=== PATIENT | male | born 1955 | race Caucasian/White ===

== ENCOUNTER 2020-01-06 12:53 | Outpatient (CLI) | payer MEDICARE, OTHER | END 2020-01-06 12:54 | disposition home or self-care (01) | LOC: DTY/OP 12:53 | PROVIDERS: ATTEND Family Medicine | DX: E66.01 Morbid (severe) obesity due to excess calories (principal); E78.2 Mixed hyperlipidemia; I12.9 Hypertensive chronic kidney disease with stage 1 through stage 4 chronic kidney disease, or unspecified chronic kidney disease; E11.22 Type 2 diabetes mellitus with diabetic chronic kidney disease; N18.9 Chronic kidney disease, unspecified; D63.1 Anemia in chronic kidney disease; R53.83 Other fatigue | CPT/HCPCS: 97802 ==

== ENCOUNTER 2020-03-22 13:39 | Outpatient (CLI) | payer MEDICARE, OTHER ==
--- NOTE | 2020-03-22 15:25 | CT ---
LUMBAR SPINE CT WITHOUT CONTRAST: HISTORY: Lumbar spondylolisthesis. Injured back in 1980. Left leg numbness. Right leg sciatica. COMPARISON: None. CORRELATION: Lumbar spine radiograph series 04/22/2020 and lumbar spine MRI 01/12/2020. FINDINGS: Five lumbar-type vertebrae. Lumbar spine vertebral body heights are maintained. No fracture. Bilatera l pars defects at L3 and L5. Spondylolisthesis: 4.3 mm of anterolisthesis of L3 upon L4. 7.5 mm of anterolisthesis of L5 upon S1. Vacuum disc phenomenon at L3-L4 and L5-S1. Endplate sclerosis at L5-S1 is noted. Appropriate attenuation the paraspinal muscles. Minimal nonspecific presacral fat stranding. Visualized sacrum and bony pelvis are intact. Limited evaluation of the contents of the central spinal canal and neural foramina due to technique. T11-T12: No significant central canal stenosis or significant neural foraminal narrowing. T12-L1: No significant central canal stenosis or significant neural foraminal narrowing. L1-L2: No significant central canal stenosis or significant neural foraminal narrowing. L2-L3: No significant central canal stenosis or significant neural foraminal narrowing. L3-L4: Vacuum disc phenomenon with moderate loss of disc space height. Broad-based disc bulge minimal ly contacts the ventral thecal sac. There is air attenuation in the right subarticular zone, superior to the L3-L4 disc space likely due to superior disc migration. There is presumed mass effect and obscuration of the traversing right L3 nerve root. Left subarticular zone is unremarkable. Moderate right and moderate to severe left neural foraminal narrowing. L4-L5: Broad-based disc bulge abuts the thecal sac. There is narrowing of the right subarticular zone with partial obscuration of the traversing right L5 nerve root of the disc space. Inferior to the disc space, there is complete obscuration the traversing right L5 nerve root secondary to inferior di sc extrusion. Moderate right and mild left neural foraminal narrowing. L5-S1: Broad-based disc bulge. Epidural lipomatosis. Moderate to severe central canal stenosis and mo derate to severe bilateral neural foraminal narrowing. IMPRESSION: 1. Spondylolisthesis of spondylolisthesis as described above. 2. Vacuum disc phenomenon at L3-L4 with superior disc migration. There is mass effect and presumed ob scuration of the traversing right L3 nerve root. 3. Broad-based disc bulge with inferior disc migration into the right subarticular zone at L4-L5. Mas s effect and obscuration of the traversing right L5 nerve root. The degree of mass effect upon the traversing right L5 nerve root has developed since the previous examination. 4. Significant bilateral neural foraminal narrowing at L5-S1. Additional levels of neural foraminal s tenosis as detailed above. Transcribed Date/Time: 03/22/2020 3:39 PM
== END 2020-03-22 13:40 | disposition home or self-care (01) ==
LOC: BICCT 13:39
PROVIDERS: ATTEND Neurological Surgery
DX: M43.16 Spondylolisthesis, lumbar region (principal); M51.86 Other intervertebral disc disorders, lumbar region; M48.07 Spinal stenosis, lumbosacral region; M48.061 Spinal stenosis, lumbar region without neurogenic claudication
CPT/HCPCS: 72131

== ENCOUNTER 2020-04-08 07:50 | Outpatient (CLI) | payer MEDICARE, OTHER ==
[2020-04-08 15:12] LABS: Mean Corpuscular HGB CONC 31.6 G/DL (32.0-36.0); Mean Corpuscular Hemoglobin 31.3 PG (27.0-33.0); Mean Corpuscular Volume 99.1 fl (80.0-100.0); Mean Platelet Volume 12.1 fl (7.4-10.4); Platelet Count 238 10x3/uL (130-400); RBC Distribution Width 14.6 % (11.5-14.5); Red Blood Cell (RBC) Count 3.19 10x6/uL (4.40-5.80); White Blood Cell (WBC) Count 5.3 10x3/uL (4.5-11.0)
[2020-04-08 15:35] LABS: Anion Gap 14 mmol/L (10-20); BUN (Urea Nitrogen) 22 mg/dL (8.4-25.7); Calc. Creatinine Clearance 0 mL/min (70-130); Calcium 9.2 mg/dL (7.8-10.44); Carbon Dioxide 26 mmol/L (23-31); Chloride 104 mmol/L (98-107); Estimated GFR-MDRD 41; Glucose 98 mg/dL (80-115); Potassium 3.9 mmol/L (3.5-5.1); Sodium 140 mmol/L (136-145)
[2020-04-09 13:39] LABS: SARS-CoV-2 MS2 Positive; SARS-CoV-2 N Gene Negative; SARS-CoV-2 S Gene Negative; SARS-CoV-2 by NAA Not Detected (NotDetected); SARS-CoV-2 orf1ab Negative
== END 2020-04-08 07:51 | disposition home or self-care (01) ==
LOC: LABBT 07:50
PROVIDERS: ATTEND Neurological Surgery
DX: Z01.812 Encounter for preprocedural laboratory examination (principal); Z20.828 Contact with and (suspected) exposure to other viral communicable diseases; M43.16 Spondylolisthesis, lumbar region
CPT/HCPCS: 80048; 85027; U0003; 87635

== ENCOUNTER 2020-04-13 07:47 | Day surgery (SDC) | payer MEDICARE, OTHER ==
[2020-04-12 09:44] VITALS: BMI 46.5
[2020-04-13] MEDS ORDERED: Thrombin 5000 UNITS/5 ML VIAL ONE (09:47)
[2020-04-13] MEDS ORDERED: EPINEPHrine 1 MG/ML AMP ONE (09:47)
[2020-04-13] MEDS ORDERED: Bupivacaine PF 0.5% 30 ML VIAL ONE (09:47)
[2020-04-13] MEDS ORDERED: Fentanyl 100 MCG/2 ML VIAL ONE (10:07)
[2020-04-13] MEDS ORDERED: Midazolam HCl 2 mg/2 ml Vial ONE ×2 (10:07→12:41)
[2020-04-13] MEDS ORDERED: PHENYLEPHRINE-NS 100 MCG/ML 10 ML SYRINGE ONE (10:14)
[2020-04-13] MEDS ORDERED: Rocuronium Bromide 10 MG/ML (10ML VIAL) ONE (10:14)
[2020-04-13] MEDS ORDERED: PROPOFOL 200 MG/20 ML VIAL ONE (10:14)
[2020-04-13] MEDS ORDERED: Ondansetron PF 4 MG/2 ML Vial ONE (10:14)
[2020-04-13] MEDS ORDERED: ePHEDrine 50 MG/ML VIAL ONE (10:14)
[2020-04-13] MEDS ORDERED: Calcium Chloride 1 GM/10 ML Abboject SYRINGE ONE (10:14)
[2020-04-13] MEDS ORDERED: Glycopyrrolate 0.2 MG/ML 5 ML SYRINGE ONE ×2 (10:14→12:21)
[2020-04-13] MEDS ORDERED: Tamsulosin HCl 0.4 MG CAP ONE (15:10)
[2020-04-13] MEDS ORDERED: HYDROcodone/Acetaminophen 7.5/325 mg Tablet ONE (16:10)
--- NOTE | 2020-04-14 14:16 | OP ---
DATE OF PROCEDURE: 04/13/2020 CAR FILLER: Vaughn Joseph PA-C. INDICATION: Pain. DIAGNOSIS: Bilateral L5 spondylolysis with spondylolisthesis. PROCEDURES: Bilateral L5-S1 facetectomies with bilateral L5-S1 posterolateral instrumented fusion, placement of allograft, placement of autograft. ANESTHESIA: General. TECHNIQUE: The patient was brought into the operating room and placed under general anesthesia. He was flipped from the supine to prone position on the operating room table. A linear incision was planned spanning L5-S1. After prepping and draping and after an appropriate preoperative pause, the incision was created. The soft tissues were swept away from midline. A self-retaining retractor was placed in the wound for optimal exposure. After confirming appropriate levels on C-arm fluoroscopy, a high-speed cutting drill bit as well as Adson rongeurs as well as 2, 3, and 4 mm Kerrisons were used to perform bilateral facetectomies at L5-S1. Pedicle screws were then placed at L5-S1 bilaterally with the aid of C-arm fluoroscopy. An intraoperative 3D CT scan was then performed to confirm appropriate placement of hardware. Allograft and autograft material were then placed in the lateral confines of the instrumentation construct. The wound was irrigated. Hemostasis maintained throughout. The wound was then closed in anatomic layers and a pressure dressing was applied. There were no known procedural complications. Job ID: [id number]
== END 2020-04-13 17:55 | disposition home or self-care (01) ==
LOC: SDC 07:47
PROVIDERS: ATTEND Neurological Surgery
PROC: 0SG3071 Fusion of Lumbosacral Joint with Autologous Tissue Substitute, Posterior Approach, Posterior Column, Open Approach (ICD-10-PCS; principal; 2020-04-13)
DX: M47.816 Spondylosis without myelopathy or radiculopathy, lumbar region (principal); M43.16 Spondylolisthesis, lumbar region; I10 Essential (primary) hypertension; E78.5 Hyperlipidemia, unspecified; I25.10 Atherosclerotic heart disease of native coronary artery without angina pectoris; I25.2 Old myocardial infarction; G47.30 Sleep apnea, unspecified; F32.9 Major depressive disorder, single episode, unspecified; E66.9 Obesity, unspecified; Z68.42 Body mass index [BMI] 45.0-49.9, adult; Z79.82 Long term (current) use of aspirin; Z79.84 Long term (current) use of oral hypoglycemic drugs; Z79.899 Other long term (current) drug therapy; Z88.2 Allergy status to sulfonamides; Z91.018 Allergy to other foods
CPT/HCPCS: 20930; 20936; 22612; 22840; 76000; C1713 ×4; C1768; J0171; J0690; J2250; J2405; J2704; J3010; J3490; S0020

== ENCOUNTER 2020-05-28 07:32 | Inpatient (IN) | payer MEDICARE, OTHER ==
[2020-05-28 08:29] LABS: #Basophils 0.1 thou/uL (0.0-0.2); #Eosinphils 0.3 thou/uL (0.0-0.7); #Monocytes 0.5 thou/uL (0.11-0.59); #Neutrophils 5.4 thou/uL (1.40-6.50); %Basophils 1.1 % (0.0-1.0); %Eosinophils 4.2 % (0.0-10.0); %Lymphocytes 13.2 % (21.0-51.0); %Monocytes 6.6 % (0.0-10.0); %Neutrophils 74.9 % (42.0-75.0); Hemoglobin 10.1 g/dL (14.0-18.0); Mean Corpuscular HGB CONC 33.2 g/dL (32.0-36.0); Mean Corpuscular Hemoglobin 32.6 pg (27.0-31.0); Mean Corpuscular Volume 98.3 fL (78.0-98.0); Mean Platelet Volume 10.2 fL (7.4-10.4); Platelet Count 172 thou/uL (130-400); RBC Distribution Width 14.3 % (11.5-14.5); Red Blood Cell (RBC) Count 3.09 mill/uL (4.70-6.10); White Blood Cell (WBC) Count 7.2 thou/uL (4.8-10.8)
[2020-05-28 08:49] LABS: ALT (SGPT) 12 U/L (8-55); AST (SGOT) 19 U/L (5-34); Albumin 3.2 g/dL (3.4-4.8); Alkaline Phosphatase 64 U/L (40-110); Anion Gap 16 mmol/L (10-20); BUN (Urea Nitrogen) 21 mg/dL (8.4-25.7); Bilirubin, Total 0.7 mg/dL (0.2-1.2); CK (CPK) 62 U/L (30-200); Calc. Creatinine Clearance 0 mL/min (70-130); Calcium 8.6 mg/dL (7.8-10.44); Carbon Dioxide 23 mmol/L (23-31); Chloride 106 mmol/L (98-107); Globulin 2.9 g/dL (2.4-3.5); Glucose 154 mg/dL (80-115); Potassium 3.6 mmol/L (3.5-5.1); Protein, Total 6.1 g/dL (5.8-8.1); Sodium 141 mmol/L (136-145)
[2020-05-28] MEDS ORDERED: Furosemide 20 MG TAB PO SCH (09:00)
[2020-05-28] MEDS ORDERED: Furosemide 40 MG/4 ML VIAL ONE (09:29)
[2020-05-28] MEDS ORDERED: cefTRIAXone\\ROCEPHIN 2 GM VIAL ONE (09:29)
--- NOTE | 2020-05-28 09:39 | PDOC.FPRHP ---
- History of Present Illness Chief Complaint: SOB History of Present Illness: Pt is a 64 y/o M who presented to the ED today after having an episode of SOB this AM. He states that he was getting up to go to the bathroom this AM when he an acute onset of SOB. He said that he was gasping for air and due to this called EMS. He denied CP, diaphoresis, lightheaded/dizziness during this episode. He states that this is the first time something like this has happened to him. He denied PND and orthopnea. He has never had HF or exacerbation before. He denied cough, fever/chills, sore throat, congestion, recent sick contacts. Once EMS arrived he was found to have O2 of low 80s and high 70s. He was put on NC and O2 grey to mid 90s. He was also given breathing treatments which have now made him feel better. Of note pt had recent back surgery for spondylolisthesis five weeks ago in April with Dr. Mccarty. He has been taking antibiotics TID for the past 3-4 weeks for a 90 day course due to having an abscess s/p the surgery. ED Course: caterina saha lasix IV 40 CXR - Allergies/Adverse Reactions Allergies Allergy/AdvReac Type Severity Reaction Status Date / Time Sulfa (Sulfonamide Allergy Verified 05/28/20 13:45 Antibiotics) coconuts Allergy Severe Hives Uncoded 05/28/20 13:45 - Home Medications Medication Instructions Recorded Confirmed Type Acetaminophen With Codeine 1 tablet PO Q6HR PRN 04/12/20 05/28/20 History [Tylenol with Codeine #3] Amlodipine [Norvasc] 5 mg PO DAILY 04/12/20 05/28/20 History Aspirin 1 tab PO QAM 04/12/20 05/28/20 History Cetirizine HCl [Zyrtec] 10 mg PO DAILY 04/12/20 05/28/20 History Cholecalciferol (Vitamin D3) 5,000 unit PO QAM 04/12/20 05/28/20 History [Vitamin D3] Clopidogrel Bisulfate [Clopidogrel] 75 mg PO DAILY 04/12/20 05/28/20 History Cyclobenzaprine [Flexeril] 10 mg PO TID 04/12/20 05/28/20 History Escitalopram Oxalate 20 mg PO DAILY 04/12/20 05/28/20 History Fenofibrate,Micronized 135 mg PO DAILY 04/12/20 05/28/20 History [Fenofibrate] Furosemide 20 mg PO DAILY 04/12/20 05/28/20 History Metoprolol Succinate [Toprol XL] 100 mg PO DAILY 04/12/20 05/28/20 History Nitroglycerin 0.4 mg SL PRN PRN 04/12/20 05/28/20 History [place]-3 Acid Ethyl Esters [Lovaza] 1 gm PO BID 04/12/20 05/28/20 History Pantoprazole [Protonix] 40 mg PO DAILY 04/12/20 05/28/20 History Pioglitazone HCl 30 mg PO DAILY 04/12/20 05/28/20 History Ranolazine [Ranexa] 500 mg PO BID 04/12/20 05/28/20 History Rosuvastatin [Crestor] 1 tab PO HS 04/12/20 05/28/20 History tiZANidine HCl [Tizanidine HCl] 2 mg PO TID 04/12/20 05/28/20 History Clindamycin [Cleocin] 450 mg PO Q8HR 05/28/20 05/28/20 History tiZANidine HCl [Tizanidine HCl] 2 mg PO TID PRN 05/28/20 05/28/20 History - History PMHx: -CAD s/p multiple stents in LAD and RCA. s/p recent angioplasty and stent placement in March. Magazine Publisher is Dr. Muñoz. -HTN -T2DM PSHx: -spinal surgery, April, Dr. Mccarty -ex lap for colonic rupture -bunions -stent placements, 1997 and 2001 FHx: -Father: CAD Social: -Former smoker of 30 years 1PPD, quit 10 years ago -Social ETOH -No drugs -Lives with . Retired. - Review of Systems General: denies: fever/chills, night sweats Eyes: denies: eye pain, vision changes ENT: denies: nasal congestion, rhinorrhea Respiratory: reports: shortness of breath. denies: cough, congestion Cardiovascular: denies: chest pain, palpitation Gastrointestinal: denies: nausea, vomiting, diarrhea, constipation, abdominal pain Genitourinary: denies: incontinence, dysuria, polyuria Skin: denies: rashes, jaundice Musculoskeletal: denies: pain, tenderness Neurological: denies: syncope, seizure Psychological: denies: anxiety, depression - Vital signs Pulse: 96, Resp: 22, Temp: 98.4 (Oral), O2 sat: 96 on (2L Oxygen), Time: 05/28/2020 07:38. - Physical Exam Constitutional: NAD, awake, alert and oriented HEENT: normocephalic and atraumatic, PERRLA, EOMI Neck: supple, FROM Heart: RRR, normal S1/S2, no murmurs/rubs/gallops Lungs: CTAB, no respiratory distress -Lungs: expiratory wheezing, bl crackles, no rhonchi Abdomen: soft, non-tender, bowel sounds present Musculoskeletal: other (1+ pitting edema bl) Neurological: CN II-XII intact, normal sensation Skin: no rash/lesions, good turgor Heme/Lymphatic: no purpura, no petechia Psychiatric: normal mood and affect, good judgment and insight, intact recent and remote memory FMR H&P: Results - Labs Result Diagrams: 05/28/20 08:15 05/28/20 08:15 Lab results: WBC 7.2 thou/uL (4.8-10.8) 05/28/20 08:15 Hgb 10.1 g/dL (14.0-18.0) L 05/28/20 08:15 Hct 30.4 % (42.0-52.0) L 05/28/20 08:15 MCV 98.3 fL (78.0-98.0) H 05/28/20 08:15 Plt Count 172 thou/uL (130-400) 05/28/20 08:15 Neutrophils % 74.9 % (42.0-75.0) 05/28/20 08:15 Sodium 141 mmol/L (136-145) 05/28/20 08:15 Potassium 3.6 mmol/L (3.5-5.1) 05/28/20 08:15 Chloride 106 mmol/L (98-107) 05/28/20 08:15 Carbon Dioxide 23 mmol/L (23-31) 05/28/20 08:15 BUN 21 mg/dL (8.4-25.7) 05/28/20 08:15 Creatinine 1.33 mg/dL (0.7-1.3) H 05/28/20 08:15 Glucose 154 mg/dL (80-115) H 05/28/20 08:15 Lactic Acid 1.6 mmol/L (0.5-2.2) 05/28/20 09:04 Calcium 8.6 mg/dL (7.8-10.44) 05/28/20 08:15 Total Bilirubin 0.7 mg/dL (0.2-1.2) 05/28/20 08:15 AST 19 U/L (5-34) 05/28/20 08:15 ALT 12 U/L (8-55) 05/28/20 08:15 Alkaline Phosphatase 64 U/L (40-110) 05/28/20 08:15 Creatine Kinase 62 U/L (30-200) 05/28/20 08:15 B-Natriuretic Peptide 526.0 pg/mL (0-100) H 05/28/20 08:15 Serum Total Protein 6.1 g/dL (5.8-8.1) 05/28/20 08:15 Albumin 3.2 g/dL (3.4-4.8) L 05/28/20 08:15 - EKG Interpretation EKG: normal sinus rhythm - Radiology Interpretation Chest x-ray Status: image reviewed by me, pending (pending report. pulmonary edema noted.) FMR H&P: A/P - Plan ##Acute hypoxic respiratory failure 2/2 suspected CHF exacerbation A: In setting of pt's significant cardiac hx, suspicious that this is cardiac cause. BNP was elevated 526. CXR with increased interstitial markings and what seems like pulmonary edema. - s/p Rocephin and azithro in ED. BCx obtained. - s/p Lasix 40mg in ED, will see if pt needs another dose today - COVID/Flu pending - Echo ordered - TSH, Lipid panel, A1C pending, risk stratifying labs - wean O2 as tolerated, satting high 90s on RA - Strict I/O's, daily weights - Though wells score is 0 for patient, suspicious of such rapid onset of hypoxia. Will order d-dimer. #Indeterminate trop - EKG without acute ST or T wave changes - Trop 0.037, will trend - Likely 2/2 CKD and CAD Chronic Conditions: ##CAD: has significant hx, will restart meds ##Anemia: noted on labs, could be chronic in nature ##HTN: missed home BP meds this AM, will restart ##HLD: home meds ##DMII: A1C, home meds ##CKD3a: aware, cadmium liquor maker today 1.33, lower than it has been on prior admissions ##h/o tob abuse: 30+ py smoking history, quit 11 years ago; duonebs prn Code: Full Diet: HH VTE: Lovenox PCP: Harley Byerso as of 05/28: Admit to tele inpt for further workup, diuresis, monitoring of fluid and resp status. Anticipate LOS >48 hours pending clinical course. FMR H&P: Upper Level - Plan Date/Time: 05/28/20 0939 I, Homero Escobar MD, have evaluated this patient and agree with findings/plan as outlined by culinary intern resident. Pertinent changes/additions are listed here. See culinary intern documentation for full H/P. CC:Shortness of breath HPI/ROS: 64yo M with h/o HTN, HLD, DMII, CAD s/p multiple stents presents for acute onset shortness of breath. Patient was at usual state of health until this morning when he was out on the back porch and had acute onset shortness of breath, unable to catch his breath. He called for who called EMS. EMS found patients O2 in 80s, placed on non-rebreather. Patients denied any CP, n/v, diaphoresis, cough, congestion, fever/chills, loss of taste/smell, recent illness, sick contacts, PND/Orthopnea. Once placed on O2, patient states he feels much better. No known history of CHF, last saw cardiology in January and had stents placed at that time as well. Smoked 30+py, quit approx 11 years ago. No history of COPD/asthma. PE: 148/79, 98% on 2L, 81, 17, 98.4 General: Resting comfortably, able to speak in full sentences, NAD, talkative HEENT: PEERLA, NC in place, EOMI intact, trachea midline Cards: RRR without murmur CTAB: BL crackles at lung bases. Tight with poor airmovement. Mild end-exp whe yasmin. GI: Soft, nontender, nondistended, normoactive bowel sounds Ext: 1+ pitting to ankles A/P: #Acute hypoxic respiratory failure 2/2 suspected CHF exacerbation - BNP 526, CXR with increased interstitial markings - s/p Lasix 40mg in ED - wean O2 as tolerated, satting high 90s on RA - COVID/Flu pending - Strict I/O's, daily weights - Echo - TSH, Lipid panel - s/p Rocephin and azithro in ED, BCx obtained, no evidence of infection at this time, will monitor off abx #Indeterminate trop - EKG without acute ST or T wave changes - Trop 0.037 - Likely 2/2 CKD and CAD, will trend trop and monitor on tele #HTN - missed home BP meds this AM, will restart #HLD - home meds #DMII - A1C, home meds #CKD3a - aware #h/o tob abuse - 30+ py smoking history, quit 11 years ago - abbe milesn PCP: Harley Code: Full Diet: HH IVF: SL VTE: Lovenox Dispo: Admit to tele inpt for further workup, diuresis, monitoring of fluid and resp status. Anticipate LOS >48 hours pending clinical course. Addendum - Attending - Attending Attestation Date/Time: 05/28/20 2514 I personally evaluated the patient and discussed the management with Dr. Mckay. I agree with the History, Examination, Assessment and Plan documented above with any addition or exceptions noted below. The patient presents with acute onset of shortness of breath. BNP elevated. Getting echo. checked covid and flu - negative. Trending trops and they have increased to NSTEMI range. Consulting cardiology. Pt given lasix.
[2020-05-28] MEDS ORDERED: Azithromycin 500 MG VIAL ONE (10:12)
[2020-05-28] MEDS ORDERED: Aspirin Chewable 81 MG TAB ONE (10:12)
[2020-05-28] MEDS ORDERED: Acetaminophen 325 MG TAB PO PRN (10:17)
[2020-05-28] MEDS ORDERED: Ondansetron ODT 4 MG TAB PO PRN (10:17)
[2020-05-28] MEDS ORDERED: Calcium Carbonate 500 MG ChewTAB PO PRN (10:30)
[2020-05-28 10:45] LABS: SARS-CoV-2 NAA Rapid Test Not Detected (NotDetected)
[2020-05-28 12:27] LABS: Hemoglobin A1c 4.8 % (4.0-6.0)
[2020-05-28 12:30] LABS: Cardiac Risk 5.2 (Less than 4.5)
[2020-05-28] MEDS ORDERED: Iopamidol-370 76% 500 ML 1 ML ONE (13:43)
[2020-05-28] MEDS ORDERED: FLU VACC QS2020-21(65YR UP)/PF 240 MCG/0.7 ML SYRINGE IM ONE (14:15)
--- NOTE | 2020-05-28 15:30 | CT ---
CTA Angio Chest W WO Con 05/28/2020 3:00 PM Indication: Rule out PE with dyspnea Technique: Multiple CTA images were obtained of the thorax with IV contrast. 3-D rendering: MIP silverio nstructed images were created and reviewed. Comparison: No relevant prior studies available. Findings: Pulmonary arteries: No central or segmental pulmonary embolus is evident. Heart and Aorta: There are coronary arteries and thoracic aortic calcifications. There is mild cardi omegaly. Mediastinum:Normal appearing. No enlarged lymph nodes. Lungs:There is subsegmental volume loss within both lower lobes. There is scattered emphysema. Pleural space: There are small bilateral pleural effusions. Upper Abdomen: No acute abnormality. Osseous Structures: There are multiple healed rib deformities bilaterally. There is scattered degene rative and osteoarthritic change present. No acute fracture or subluxation demonstrated. Soft tissues:No abnormality. Other findings:None. Impression: No central or segmental pulmonary embolus. Findings suspicious for mild CHF. Emphysema
[2020-05-28] MEDS ORDERED: Nitroglycerin 0.4 MG TAB (25 Tab Bottle) SL PRN (15:39)
[2020-05-28 16:49] LABS: Troponin I 0.349 ng/mL (< 0.028)
[2020-05-28] MEDS: Amlodipine 5 MG TAB PO SCH (17:59)
[2020-05-28] MEDS: Clopidogrel Bisulfate 75 MG TAB PO SCH (17:59)
[2020-05-28 20:00] LABS: Critical Call Chem Troponin I RESULT DECREASING
[2020-05-28 20:18] LABS: CKMB 1.9 ng/mL (0-6.6)
[2020-05-28] MEDS: Fish Oil 1,000 MG CAP PO SCH (20:43)
[2020-05-28] MEDS: Cyclobenzaprine 10 MG TAB PO SCH (20:43)
[2020-05-28] MEDS: hydrOXYzine 25 MG TAB PO PRN (20:43)
[2020-05-28] MEDS: Melatonin 3 MG TAB PO PRN (20:43)
[2020-05-28] MEDS: Rosuvastatin 20 MG TAB PO SCH (20:44)
[2020-05-28] MEDS: Enoxaparin Sodium 120 MG/0.8 ML SYRINGE SC SCH (20:44)
[2020-05-28] MEDS: tiZANidine HCl 4 MG TAB PO SCH (20:44)
[2020-05-28] MEDS ORDERED: Enoxaparin Sodium 120 MG/0.8 ML SYRINGE SC SCH (21:00)
[2020-05-28] MEDS: Clindamycin 150 MG CAP PO SCH (21:01)
[2020-05-29 05:16] LABS: Hemoglobin 9.4 g/dL (14.0-18.0); Platelet Count 147 thou/uL (130-400)
[2020-05-29] MEDS: Clindamycin 150 MG CAP PO SCH ×3 (05:31→23:08)
[2020-05-29 05:41] LABS: ALT (SGPT) 11 U/L (8-55); AST (SGOT) 21 U/L (5-34); Alkaline Phosphatase 43 U/L (40-110); Anion Gap 13 mmol/L (10-20); BUN (Urea Nitrogen) 16 mg/dL (8.4-25.7); Bilirubin, Total 0.6 mg/dL (0.2-1.2); Calc. Creatinine Clearance 102 mL/min (70-130); Calcium 8.5 mg/dL (7.8-10.44); Carbon Dioxide 25 mmol/L (23-31); Chloride 104 mmol/L (98-107); Globulin 2.8 g/dL (2.4-3.5); Glucose 102 mg/dL (80-115); Potassium 3.3 mmol/L (3.5-5.1); Protein, Total 5.8 g/dL (5.8-8.1); Sodium 139 mmol/L (136-145)
--- NOTE | 2020-05-29 05:41 | PDOC.FM ---
- Subjective Subjective: Pt resting in bed this AM. No acute events overnight. Denies CP. Is feeling better. - Objective Vital Signs & Weight: Vital Signs (12 hours) Temp Pulse Resp BP Pulse Ox 05/29/20 03:49 97.8 F 68 18 103/61 94 L 05/29/20 00:00 97.8 F 67 18 111/69 98 05/28/20 20:41 95 05/28/20 20:00 97.8 F 72 20 123/99 H 95 Weight Weight 123.332 kg I&O: 05/27/20 05/28/20 05/29/20 06:59 06:59 06:59 Intake Total 480 Output Total 1300 Balance -820 Result Diagrams: 05/29/20 04:49 05/29/20 04:49 Phys Exam - Physical Examination Constitutional: NAD HEENT: moist MMs Neck: supple Respiratory: no wheezing, no rales, no rhonchi, clear to auscultation bilateral Cardiovascular: RRR, no significant murmur, no rub Gastrointestinal: soft, non-tender, no distention, positive bowel sounds Musculoskeletal: pulses present Neurological: normal sensation, moves all 4 limbs Psychiatric: normal affect, A&O x 3 Skin: no rash, normal turgor, cap refill <2 seconds Dx/Plan - Plan Plan: ##Acute hypoxic respiratory failure 2/2 suspected CHF exacerbation A: In setting of pt's significant cardiac hx, suspicious that this is cardiac cause. BNP was elevated 526. CXR with increased interstitial markings and what seems like pulmonary edema. - COVID/Flu wnl - TSH, Lipid panel, A1C wnl - D-dimer was elevated. CTA ordered and no PE. - Echo ordered - Strict I/O's, daily weights - wean O2 as tolerated, satting high 90s on RA #Indeterminate trop, NSTEMI - EKG without acute ST or T wave changes - Trop 0.037--0.2--0.349--0.303 - Consulted cardiology yesterday, will see this AM. 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 On Thx Lovenox. No CP at this time. Appreciate cards recs. Will diurese as necessary. Addendum - Attending - Attending Attestation Date/Time: 05/29/20 1037 I personally evaluated the patient and discussed the management with Dr. Mckay. I agree with the History, Examination, Assessment and Plan documented above with any addition or exceptions noted below. The patient's troponin peaked and started downtrending. Cardiology is consulted and will see pt today. Echo pending. Patient clinically is feeling better.
[2020-05-29] MEDS: Aspirin 325 MG TAB PO SCH (08:32)
[2020-05-29] MEDS: Clopidogrel Bisulfate 75 MG TAB PO SCH (08:33)
[2020-05-29] MEDS: Loratadine 10 MG TAB PO SCH (08:33)
[2020-05-29] MEDS: Cholecalciferol 1,000 UNITS (25 MCG) TAB PO SCH (08:34)
[2020-05-29] MEDS: Fenofibrate Nanocrystallized 145 MG TAB PO SCH (08:35)
[2020-05-29] MEDS: Cyclobenzaprine 10 MG TAB PO SCH ×3 (08:36→23:08)
[2020-05-29] MEDS: Escitalopram Oxalate 20 mg Tablet PO SCH (08:37)
[2020-05-29] MEDS: Amlodipine 5 MG TAB PO SCH (08:37)
[2020-05-29] MEDS: tiZANidine HCl 4 MG TAB PO SCH ×3 (08:37→23:07)
[2020-05-29] MEDS: Fish Oil 1,000 MG CAP PO SCH ×2 (08:38→23:08)
[2020-05-29] MEDS: Enoxaparin Sodium 120 MG/0.8 ML SYRINGE SC SCH ×3 (08:40→23:08)
[2020-05-29] MEDS ORDERED: Enoxaparin Sodium 40 MG/0.4 ML SYRINGE SC SCH (09:00)
[2020-05-29] MEDS ORDERED: Furosemide 20 MG/2 ML VIAL SLOW IVP SCH (09:00)
--- NOTE | 2020-05-29 14:02 | CON ---
DATE OF CONSULTATION: REASON FOR CONSULTATION: Shortness of breath. PRIMARY ENTRY LEVEL PROJECT COORDINATOR: Dr. Regan Muñoz HISTORY OF PRESENT ILLNESS: Mr. Manuel is a 64-year-old gentleman with an extensive cardiac history. He states he has had nine stents in the past. He has had multiple MIs dating back to 1997 while in [place]. He states he has been deemed too high risk for CABG in the past. He recently underwent coronary angiography in February of 2020, in preparation for spinal surgery. He underwent stent placed to the right coronary artery and LAD. These films were reviewed. He also had complete occlusion of the circumflex artery with multiple stents present in that area. He recently presented with shortness of breath. He states he got up to go to the bathroom in the middle of the night. He states he had a bowel movement and urinated. He then developed shortness of breath. He states the shortness of breath was persistent. No chest pain or pressure noted. EMS was summoned. He states he received a nebulizer treatment and oxygen with complete relief of symptoms. He has been asymptomatic since that time. The patient did not receive nitroglycerin or morphine. He states he was fairly asymptomatic prior to his stent placement recently. He did state that he did have shortness of breath that he felt improved afterwards. It is unknown whether he received drug-coated versus bare metal stents. PAST MEDICAL HISTORY: CAD, status post stent placement, diabetes mellitus, hypertension. SURGICAL HISTORY: Recent spine surgery. FAMILY HISTORY: Positive for CAD. SOCIAL HISTORY: Previous tobacco use. Rare alcohol use. HOME MEDICATIONS: Include, 1. Plavix. 2. Flexeril. 3. Fenofibrate. 4. Lasix. 5. Metoprolol. 6. Nitroglycerin. 7. [place]-3. 8. Pantoprazole. 9. Pioglitazone. 10. Ranexa. 11. Crestor. 12. Tizanidine. 13. Cleocin. REVIEW OF SYSTEMS: A 10-point review of systems is reviewed as above, otherwise negative. PHYSICAL EXAMINATION: VITAL SIGNS: Blood pressure 116/75, pulse 66, temperature afebrile. GENERAL: The patient is a pleasant 64-year-old male, in no acute distress, appears stated age. HEAD, EYES, EARS, NOSE AND THROAT: Sclerae without icterus. Mouth: Moist mucous membranes, normal palate. NECK: No jugular venous distention. Carotid upstroke is brisk. No bruits bilaterally. LUNGS: Clear to auscultation. HEART: Regular rate and rhythm, normal S1 and S2. ABDOMEN: Soft, nontender, nondistended. EXTREMITIES: No edema. PERTINENT LABORATORY DATA: Hemoglobin 9.4, peak troponin 0.3, CK-MB negative. IMPRESSION: 1. Shortness of breath. 2. Coronary artery disease. 3. Elevated troponin. RECOMMENDATIONS: Mr. Manuel's symptoms were felt to be atypical, although his troponin was elevated. 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 I discussed stress study versus coronary angiography. The patient has had multiple coronary angiographies in the past. He feels better proceeding with a more conservative approach. I certainly would agree. It would be difficult to decide where he is truly ischemic versus scar. Further recommendations will be pending the above. Job ID: [id number]
[2020-05-29] MEDS ORDERED: Potassium Chloride 20 MEQ TAB PO SCH (17:15)
[2020-05-29] MEDS ORDERED: Potassium Bicarbonate/Cit Ac 20 MEQ TAB PO SCH (17:15)
[2020-05-29] MEDS: Rosuvastatin 20 MG TAB PO SCH (23:08)
[2020-05-29] MEDS: Melatonin 3 MG TAB PO PRN (23:13)
[2020-05-29] MEDS: hydrOXYzine 25 MG TAB PO PRN (23:13)
--- NOTE | 2020-05-30 05:55 | PDOC.FM ---
- Subjective Subjective: Pt resting in bed this AM. No acute events overnight. No CP. No events on telemetry overnight. - Objective Vital Signs & Weight: Vital Signs (12 hours) Temp Pulse Resp BP Pulse Ox 05/30/20 04:00 97.7 F 74 22 H 117/68 95 05/29/20 23:54 98.4 F 69 18 105/66 92 L 05/29/20 19:33 99.0 F 69 18 114/64 92 L Weight Weight 123.332 kg I&O: 05/28/20 05/29/20 05/30/20 06:59 06:59 06:59 Intake Total 480 1000 Output Total 1300 1175 Balance -820 -175 Result Diagrams: 05/29/20 04:49 05/30/20 06:04 Phys Exam - Physical Examination Constitutional: NAD on RA HEENT: moist MMs Neck: supple Respiratory: no wheezing, no rales, no rhonchi, clear to auscultation bilateral Cardiovascular: RRR, no significant murmur, no rub Gastrointestinal: soft, non-tender, no distention, positive bowel sounds Musculoskeletal: pulses present Dx/Plan - Plan Plan: ##Acute hypoxic respiratory failure 2/2 suspected NSTEMI A: In setting of pt's significant cardiac hx, suspicious that this is cardiac cause. BNP was elevated 526. CXR with increased interstitial markings and what seems like pulmonary edema. - COVID/Flu negative - TSH, Lipid panel, A1C wnl - D-dimer was elevated. CTA ordered and no PE was found - Echo ordered and found EF of 55-60% - Strict I/O's, daily weights - Not currently requiring any oxygen #Indeterminate trop, NSTEMI - EKG without acute ST or T wave changes - Trop 0.037--0.2--0.349--0.303 - Consulted cardiology Dr. London, who suggested stress vs. 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 Appreciate cards recs. Stress test today. Addendum - Attending - Attending Attestation Date/Time: 05/30/20 1203 I personally evaluated the patient and discussed the management with Dr. Mckay. I agree with the History, Examination, Assessment and Plan documented above with any addition or exceptions noted below.
[2020-05-30 06:45] LABS: Anion Gap 12 mmol/L (10-20); BUN (Urea Nitrogen) 14 mg/dL (8.4-25.7); Calc. Creatinine Clearance 101 mL/min (70-130); Calcium 8.9 mg/dL (7.8-10.44); Carbon Dioxide 26 mmol/L (23-31); Chloride 103 mmol/L (98-107); Glucose 114 mg/dL (80-115); Magnesium 1.7 mg/dL (1.6-2.6); Potassium 3.2 mmol/L (3.5-5.1); Sodium 138 mmol/L (136-145)
[2020-05-30] MEDS: Clindamycin 150 MG CAP PO SCH ×3 (06:56→21:43)
[2020-05-30] MEDS: Potassium Bicarbonate/Cit Ac 20 MEQ TAB PO SCH (06:56)
--- NOTE | 2020-05-30 07:04 | RAD ---
Chest AP view INDICATION: Dyspnea COMPARISON: June 25, 2015 FINDINGS: Lungs:There is airspace disease within the left midlung and right lung base. Cardiothymic silhouette: There is mild cardiomegaly Pulmonary vasculature and perihilar structures:There is mild pulmonary vascular congestion Pleural spaces:No pleural effusion or pneumothorax is demonstrated. Upper abdomen:No abnormality seen. Osseous structures: No acute osseous abnormality. Additional findings:None. IMPRESSION: 1. New airspace opacities within the left midlung and right lower lobe may reflect developing pneumon ia. 2. Mild cardiomegaly and mild pulmonary vascular congestion may reflect a component of mild cardiac d ysfunction.
[2020-05-30] MEDS: Cholecalciferol 1,000 UNITS (25 MCG) TAB PO SCH (07:54)
[2020-05-30] MEDS: tiZANidine HCl 4 MG TAB PO SCH ×3 (07:55→21:42)
[2020-05-30] MEDS: Aspirin 325 MG TAB PO SCH (07:55)
[2020-05-30] MEDS: Cyclobenzaprine 10 MG TAB PO SCH (07:55)
[2020-05-30] MEDS: Fenofibrate Nanocrystallized 145 MG TAB PO SCH (07:55)
[2020-05-30] MEDS: Escitalopram Oxalate 20 mg Tablet PO SCH (07:56)
[2020-05-30] MEDS: Clopidogrel Bisulfate 75 MG TAB PO SCH (07:57)
[2020-05-30] MEDS: Fish Oil 1,000 MG CAP PO SCH ×2 (07:57→21:42)
[2020-05-30] MEDS: Loratadine 10 MG TAB PO SCH (07:57)
[2020-05-30] MEDS ORDERED: Potassium Chloride 20 MEQ TAB PO SCH (08:30)
[2020-05-30] MEDS ORDERED: Regadenoson 0.4 MG/5 ML SYRINGE ONE (09:24)
[2020-05-30] MEDS: Furosemide 20 MG TAB PO SCH (11:46)
[2020-05-30] MEDS: Amlodipine 5 MG TAB PO SCH (11:46)
--- NOTE | 2020-05-30 13:32 | NM ---
CARDIAC SPECT: HISTORY: A 64-year-old male with dyspnea on exertion, coronary artery disease, [place], hypertension, diabetes, hyp erlipidemia, stent placement. TECHNIQUE: A myocardial perfusion scan was performed using the single isotope 1-day protocol with Technetium 99m sestamibi. Ten mCi were injected intravenously for rest exam followed by 27 mCi for the stress stud y. Pharmacologic stress with Lexiscan was monitored and interpreted by ELOY Fonseca. FINDINGS: There is a moderate-sized fixed defect in the proximal inferolateral wall. The stress images demonst rate a moderate-size area of decreased tracer uptake in the distal anteroseptal wall with near comple te reversibility at rest. A fixed defect is also noted in the apex. GATED SPECT LVEF: 41%. WALL MOTION EXAM: Global hypokinesis. IMPRESSION: Moderate-sized area of reversible ischemia in the distal anteroseptal wall. POS: OFF
[2020-05-30] MEDS ORDERED: Communication Order-Pharmacy FS SCH (15:45)
[2020-05-30 20:36] LABS: Platelet Count 149 thou/uL (130-400)
[2020-05-30 20:42] LABS: INR-International Normal Ratio 1.1; PTT 35.1 sec (22.9-36.1); Prothrombin Time 14.4 sec (12.0-14.7)
[2020-05-30] MEDS ORDERED: Cyclobenzaprine 10 MG TAB PO SCH (21:00)
[2020-05-30] MEDS: Rosuvastatin 20 MG TAB PO SCH (21:42)
[2020-05-30] MEDS: hydrOXYzine 25 MG TAB PO PRN (22:00)
[2020-05-30] MEDS: Melatonin 3 MG TAB PO PRN (22:00)
[2020-05-30] MEDS: Enoxaparin Sodium 120 MG/0.8 ML SYRINGE SC SCH (23:24)
[2020-05-31 05:21] LABS: Anion Gap 13 mmol/L (10-20); BUN (Urea Nitrogen) 13 mg/dL (8.4-25.7); Calc. Creatinine Clearance 104 mL/min (70-130); Calcium 9.3 mg/dL (7.8-10.44); Carbon Dioxide 24 mmol/L (23-31); Chloride 105 mmol/L (98-107); Glucose 97 mg/dL (80-115); Potassium 3.3 mmol/L (3.5-5.1); Sodium 139 mmol/L (136-145)
[2020-05-31] MEDS: Potassium Bicarbonate/Cit Ac 20 MEQ TAB PO SCH (05:37)
[2020-05-31] MEDS: Clindamycin 150 MG CAP PO SCH ×3 (05:37→21:19)
[2020-05-31] MEDS: Fenofibrate Nanocrystallized 145 MG TAB PO SCH (05:38)
[2020-05-31] MEDS: Amlodipine 5 MG TAB PO SCH (05:38)
[2020-05-31] MEDS: Cholecalciferol 1,000 UNITS (25 MCG) TAB PO SCH (05:38)
[2020-05-31] MEDS: Loratadine 10 MG TAB PO SCH (05:38)
[2020-05-31] MEDS: tiZANidine HCl 4 MG TAB PO SCH ×3 (05:38→21:18)
[2020-05-31] MEDS: Escitalopram Oxalate 20 mg Tablet PO SCH (05:38)
[2020-05-31] MEDS: Fish Oil 1,000 MG CAP PO SCH ×2 (05:39→21:19)
--- NOTE | 2020-05-31 05:53 | PRG ---
DATE OF SERVICE: 05/30/2020 SUBJECTIVE: Mr. Manuel is doing well. No current complaints. His stress study did show an abnormality. Please see below. PHYSICAL EXAMINATION: VITAL SIGNS: Blood pressure 171/71, pulse 67, temperature 98.2. Physical exam deferred. PERTINENT LABORATORY DATA: Hemoglobin 9.4, hematocrit 28.9, platelet count of 147. Stress rest myocardial perfusion study, LVEF 41%. Scar present to the inferolateral wall and a moderate-sized decreased uptake in the distal anteroseptal wall with reversibility. There is also a fixed defect at the apex. IMPRESSION: 1. Shortness of breath. 2. Elevated troponin. 3. Severe coronary artery disease. RECOMMENDATIONS: I discussed case with Dr. Muñoz, his primary head of transport logistics. In February, he had significant ischemia present to the anterior-anteroseptal wall. He also had a defect at the apex in February. When comparing this study to the PET study, it appears the anterior wall ischemia has resolved, but still has the anterior-anteroseptal ischemia present. I discussed coronary angiography versus medical therapy with Mr. Manuel. He has opted for coronary angiography. Discussed the procedure in full detail with Mr. Manuel. Risks include, but not limited to the following: , stroke, [place], need for emergency surgery, loss of limb, bleeding, and infection, as well as a reaction to the dye causing kidney failure and needing long-term dialysis. I also discussed the risks of PCI to include all of the above including coronary dissection and perforation in addition to acute stent thrombosis and restenosis. All questions about the procedure were answered. Given the above, the patient agreed to proceed with coronary angiography and possible PCI. All questions answered. Given the above, the patient agreed to proceed with procedure. There were no contraindications to drug-coated stent placement. We will proceed if needed. It is of note that the patient did receive a drug-coated stent in February to the RCA and LAD. Job ID: [id number]
--- NOTE | 2020-05-31 05:56 | PDOC.FM ---
- Subjective Subjective: Patient feeling well this AM, no SOB, CP, awaiting cath procedure. - Objective MAR Reviewed: Yes Vital Signs & Weight: Vital Signs (12 hours) Temp Pulse Resp BP Pulse Ox 05/31/20 03:52 98.1 F 82 18 123/75 94 L 05/30/20 23:18 98.4 F 74 18 107/67 95 05/30/20 20:00 97.4 F L 75 18 115/66 95 Weight Weight 122.833 kg I&O: 05/29/20 05/30/20 05/31/20 06:59 06:59 06:59 Intake Total 480 1720 2020 Output Total 1300 1175 1400 Balance -820 545 620 Result Diagrams: 05/30/20 20:27 05/31/20 04:44 Phys Exam - Physical Examination Constitutional: NAD Respiratory: no wheezing, no rales, no rhonchi, clear to auscultation bilateral Cardiovascular: RRR, no significant murmur, no rub Gastrointestinal: soft, non-tender, no distention, positive bowel sounds Musculoskeletal: no edema, pulses present Dx/Plan - Plan Plan: Acute hypoxic respiratory failure 2/2 suspected NSTEMI - BNP was elevated 526. CXR with increased interstitial markings and possible pulmonary edema - COVID/Flu negative - TSH, Lipid panel, A1C wnl - D-dimer was elevated. CTA ordered and no PE was found - Echo ordered and found EF of 55-60% - Strict I/O's, daily weights - Not currently requiring any oxygen Indeterminate trop, NSTEMI - EKG without acute ST or T wave changes - Trop 0.037--0.2--0.349--0.303 - Consulted cardiology Dr. London, who suggested stress vs. cath, patient decided to go with stress test this AM - Pt on Thx Lovenox Hypokalemia - Replete 40 mEq K+ PO CAD: has significant hx, will restart meds Anemia: noted on labs, likely chronic in nature HTN: missed home BP meds this AM, will restart HLD: home meds DMII: A1C wnl, home meds CKD3a: aware, avoid nephrotoxins H/o tob abuse: 30+ py smoking history, quit 11 years ago; abbe prn Code: Full Diet: HH VTE: Lovenox PCP: [facility] as of 05/30: No CP at this time. Appreciate cards recs. Cath today. Addendum - Attending - Attending Attestation Date/Time: 05/31/20 0434 I personally evaluated the patient and discussed the management with Dr. Fermin. I agree with the History, Examination, Assessment and Plan documented above with any addition or exceptions noted below. Patient feeling well. Going for [facility] this morning. Further mgmt and dispo pending that result and cardiology recs.
[2020-05-31] MEDS ORDERED: Potassium Chloride 20 MEQ TAB PO SCH (06:00)
[2020-05-31] MEDS ORDERED: Sodium Chloride 0.9% 1,000 ML IV SCH ×2 (06:00→08:45)
[2020-05-31] MEDS ORDERED: Nitroglycerin 100MG/250ML BOT 250 ML ONE (06:47)
[2020-05-31] MEDS ORDERED: Heparin 10,000 UNITS/ 10 ML VIAL ONE (06:47)
[2020-05-31] MEDS ORDERED: Verapamil 5 MG/2 ML VIAL ONE (06:47)
[2020-05-31] MEDS ORDERED: Fentanyl 100 MCG/2 ML VIAL ONE (07:34)
[2020-05-31] MEDS ORDERED: Midazolam HCl 2 mg/2 ml Vial ONE (07:35)
[2020-05-31] MEDS ORDERED: Nitroglycerin 0.4 MG TAB (25 Tab Bottle) SL PRN (08:33)
[2020-05-31] MEDS ORDERED: Sodium Chloride 0.9% 200 ML IV PRN (08:33)
[2020-05-31] MEDS ORDERED: Iopamidol 370 76% 100 ML VIAL ONE (09:22)
[2020-05-31] MEDS: Furosemide 20 MG TAB PO SCH (09:37)
[2020-05-31] MEDS: Aspirin 325 MG TAB PO SCH (09:37)
--- NOTE | 2020-05-31 11:43 | PQF ---
CLINICAL DOCUMENTATION CLARIFICATION FORM: Dear Dr. Fermin Date: 05/31/20 Please exercise your independent, professional judgment in responding to the clarification form. Clinical indicators are provided on the bottom of this form for your review. Please check appropriate box(es): HEART FAILURE: A. ACUITY [ ] Acute [ x ] Acute on Chronic [ ] Chronic B. TYPE: [ x ] Systolic / HFrEF [ ] Diastolic / HFpEF [ ] Combined Systolic / Diastolic [ ] Hypertensive Heart and Kidney disease [ ] Hypertensive Heart Disease [ ] Hypertensive Kidney Disease [ ] Other diagnosis [ ] Unable to determine In addition, please specify: Present on Admission (POA): [ x ] Yes [ ] No [ ] Unable to determine For continuity of documentation, please document condition throughout progress notes and discharge summary. Thank You. To be completed by CDI/Coding staff for physician review: CLINICAL INDICATORS - SIGNS / SYMPTOMS / LABS / RESULTS AND LOCATION IN EMR H&P (SELLI): "SUSPECTED CHF EXACERBATION" BNP 05/28: 526 ECHO REPORT: "LVEF ESTIMATED AT 55-60%" "LEFT ATRIUM MODERATELY TO SEVERELY DILATED" RISKS FACTORS / RESULTS AND LOCATION IN EMR "CXR WITH INCREASED INTERSTITIAL MARKINGS AND WHAT SEEMED LIKE PULMONARY EDEMA" (H&P) CKD 3 (H&P) H/O HTN (H&P) NSTEMI (PN 05/31- ALIYAH) TREATMENTS / RESULTS AND LOCATION IN EMR STRICT I&Os (H&P) DAILY WEIGHTS (H&P) ECHO 05/29 CARDIOLOGY CONSULT IV LASIX (ER) PO LASIX (05/30-CURRENT) CDS Signature: Adamaris Meraz RN Phone #: [phone] Date: 05/31/20 This is a permanent part of the Medical Record [facility]
--- NOTE | 2020-05-31 14:49 | CON ---
DATE OF CONSULTATION: HISTORY OF PRESENT ILLNESS: A 64-year-old gentleman with a long cardiac history dating back at least 20 years, having had multiple stenting procedures on all of his coronary vessels. Most recently, Dr. Muñoz performed stenting in [facility], although I do not know at this time, which vessels were stented. In any event, he presented with acute onset of shortness of breath with a troponin bump to 0.3. Cardiac echo was done showing poor study due to the patient's size, but EF was estimated at 55% to 60%. A stress test was done and ejection fraction was estimated at 41% with reversible ischemia in the distal anteroseptal wall. The patient then underwent cardiac catheterization showing significant LAD and proximal diagonal disease with chronically occluded circ and significant disease in the proximal right coronary artery prior to a long total right coronary artery stent and a good PDA. A distal circumflex and a proximal ramus filled, but appeared to be small via collaterals. PAST MEDICAL HISTORY: Significant for type 2 diabetes mellitus as well as hypertension. His diabetes has been well controlled by medicines, although he is unsure of his A1c and has been followed by Dr. Rene for about 5 years. PAST SURGICAL HISTORY: Significant for a ruptured diverticulitis resulting in a dozen abdominal wall repairs and then more recently in April, he had back surgery for chronic low back pain and leg weakness. SOCIAL HISTORY: The patient is a nonsmoker. He is , accompanied by his . He is retired from [employer] and has been retired for at least a dozen years. HOME MEDICATIONS: Include; 1. Tizanidine 2 mg t.i.d. 2. Plavix 75 a day. 3. Flexeril 10 t.i.d. 4. Vitamin D3. 5. Tylenol No. 3. 6. Fenofibrate. 7. Escitalopram 20 mg daily. 8. Pioglitazone 30 mg daily. 9. Lasix 20 mg daily. 10. Crestor one a day. 11. Metoprolol succinate 100 a day. 12. Amlodipine 5 a day. 13. Ranexa 500 b.i.d. 14. Protonix 40 mg a day. ALLERGIES: HE REPORTS ALLERGIES TO SULFA AND COCONUTS. PHYSICAL EXAMINATION: GENERAL: On examination, he is alert, cooperative gentleman, morbidly obese. VITAL SIGNS: 5 feet and 8 inches, 270 pounds, and BMI of 41. NECK: No carotid bruits. LUNGS: Clear to auscultation. CARDIAC: Regular rate and rhythm. No murmurs. ABDOMEN: Extensive scarring over the anterior abdominal wall related to multiple procedures. EXTREMITIES: He has palpable popliteal pulses bilaterally as well as a left dorsalis pedis and no right dorsalis pedis. He has no peripheral edema. Left arm is nondominant with a good Eduardo's test. The patient could have coronary artery bypass grafting to the LAD, diagonal, PDA, and possibly one of the circumflex vessels, although these look small and are chronically occluded. Given the fact that the patient has been on aspirin and Plavix, I think his surgery should be delayed until next week and if need be, we can keep him in the hospital on the Lovenox. I have gone over the increased surgical risks given the patient's size and small coronary targets and informed consent has been obtained. Job ID: [id number]
[2020-05-31] MEDS: Rosuvastatin 20 MG TAB PO SCH (21:18)
[2020-05-31] MEDS: Melatonin 3 MG TAB PO PRN (21:24)
[2020-05-31] MEDS: hydrOXYzine 25 MG TAB PO PRN (21:24)
[2020-06-01 05:40] LABS: Hemoglobin 9.8 g/dL (14.0-18.0); Platelet Count 167 thou/uL (130-400)
[2020-06-01 05:58] LABS: Anion Gap 13 mmol/L (10-20); BUN (Urea Nitrogen) 11 mg/dL (8.4-25.7); Calc. Creatinine Clearance 102 mL/min (70-130); Calcium 9.1 mg/dL (7.8-10.44); Carbon Dioxide 25 mmol/L (23-31); Chloride 105 mmol/L (98-107); Glucose 104 mg/dL (80-115); Potassium 3.6 mmol/L (3.5-5.1); Sodium 139 mmol/L (136-145)
--- NOTE | 2020-06-01 05:59 | PDOC.FM ---
- Subjective Subjective: Overall patient feels well this AM. He denies any CP or SOB. - Objective MAR Reviewed: Yes Vital Signs & Weight: Vital Signs (12 hours) Temp Pulse Resp BP Pulse Ox 06/01/20 05:07 95 06/01/20 04:00 98.0 F 68 18 118/78 95 06/01/20 00:00 97.5 F L 71 18 115/68 95 05/31/20 23:30 97.5 F L 71 18 115/68 95 05/31/20 20:00 97.7 F 69 18 106/67 96 Weight Weight 122.833 kg I&O: 05/30/20 05/31/20 06/01/20 06:59 06:59 06:59 Intake Total 1720 2020 2051 Output Total 1175 1400 1800 Balance 545 620 251 Result Diagrams: 06/01/20 05:21 06/01/20 05:21 Phys Exam - Physical Examination Constitutional: NAD Respiratory: no wheezing, no rales, no rhonchi, clear to auscultation bilateral Cardiovascular: RRR, no significant murmur, no rub Gastrointestinal: soft, non-tender, no distention, positive bowel sounds Dx/Plan - Plan Plan: Acute hypoxic respiratory failure 2/2 suspected NSTEMI - BNP was elevated 526. CXR with increased interstitial markings and possible pulmonary edema - COVID/Flu negative - TSH, Lipid panel, A1C wnl - D-dimer was elevated. CTA ordered and no PE was found - Echo ordered and found EF of 55-60% - Strict I/O's, daily weights - Not currently requiring any oxygen Indeterminate trop, NSTEMI - EKG without acute ST or T wave changes - Trop 0.037--0.2--0.349--0.303 - Consulted cardiology Dr. London,stress test +, Cath + yesterday - Dr. Johnston consulted, plan for CABG but will need to be off ASA/Plavix - Held Lovenox last night, will discuss with cardiology as to whether or not it needs to be continued until CABG CAD: has significant hx, will restart meds Anemia: noted on labs, likely chronic in nature HTN: missed home BP meds this AM, will restart HLD: home meds DMII: A1C wnl, home meds CKD3a: aware, avoid nephrotoxins H/o tob abuse: 30+ py smoking history, quit 11 years ago; abbe prn Code: Full Diet: HH VTE: Lovenox PCP: [facility] Dispo as of 05/30: No CP at this time. Appreciate cards recs. Addendum - Attending - Attending Attestation Date/Time: 06/01/20 1121 I personally evaluated the patient and discussed the management with Dr. Fermin. I agree with the History, Examination, Assessment and Plan documented above with any addition or exceptions noted below.
[2020-06-01] MEDS: Clindamycin 150 MG CAP PO SCH ×3 (06:30→21:26)
[2020-06-01] MEDS: tiZANidine HCl 4 MG TAB PO SCH ×3 (08:40→21:26)
[2020-06-01] MEDS: Cholecalciferol 1,000 UNITS (25 MCG) TAB PO SCH (08:41)
[2020-06-01] MEDS: Potassium Bicarbonate/Cit Ac 20 MEQ TAB PO SCH (08:41)
[2020-06-01] MEDS: Fenofibrate Nanocrystallized 145 MG TAB PO SCH (08:42)
[2020-06-01] MEDS: Fish Oil 1,000 MG CAP PO SCH ×2 (08:43→21:26)
[2020-06-01] MEDS: Furosemide 20 MG TAB PO SCH (08:44)
[2020-06-01] MEDS: Loratadine 10 MG TAB PO SCH (08:44)
[2020-06-01] MEDS: Escitalopram Oxalate 20 mg Tablet PO SCH (08:44)
[2020-06-01] MEDS: Amlodipine 5 MG TAB PO SCH (08:45)
[2020-06-01] MEDS: Acetaminophen/Codeine 30-300mg Tablet PO PRN (19:46)
[2020-06-01] MEDS: Rosuvastatin 20 MG TAB PO SCH (21:26)
[2020-06-01] MEDS: Enoxaparin Sodium 120 MG/0.8 ML SYRINGE SC SCH (22:01)
[2020-06-01] MEDS: Melatonin 3 MG TAB PO PRN (22:01)
[2020-06-01] MEDS: hydrOXYzine 25 MG TAB PO PRN (22:01)
[2020-06-02 05:24] LABS: Anion Gap 13 mmol/L (10-20); BUN (Urea Nitrogen) 11 mg/dL (8.4-25.7); Calc. Creatinine Clearance 95 mL/min (70-130); Calcium 9.5 mg/dL (7.8-10.44); Carbon Dioxide 25 mmol/L (23-31); Chloride 104 mmol/L (98-107); Glucose 101 mg/dL (80-115); Potassium 3.5 mmol/L (3.5-5.1); Sodium 138 mmol/L (136-145)
--- NOTE | 2020-06-02 06:06 | PDOC.FM ---
- Subjective Subjective: Patient is doing well this AM, denies CP, SOB. - Objective MAR Reviewed: Yes Vital Signs & Weight: Vital Signs (12 hours) Temp Pulse Resp BP Pulse Ox 06/02/20 04:00 97.5 F L 66 16 125/67 94 L 06/02/20 03:24 94 L 06/02/20 00:00 97.8 F 65 14 91/62 94 L 06/01/20 20:00 93 L 06/01/20 19:47 98.9 F 68 18 138/89 93 L Weight Weight 120.792 kg I&O: 05/31/20 06/01/20 06/02/20 06:59 06:59 06:59 Intake Total 2019 2050 1222 Output Total 1400 1800 1600 Balance 620 920 -378 Result Diagrams: 06/01/20 05:21 06/02/20 04:11 Phys Exam - Physical Examination Constitutional: NAD Respiratory: no wheezing, no rales, no rhonchi, clear to auscultation bilateral Cardiovascular: RRR, no significant murmur, no rub Gastrointestinal: soft, non-tender, no distention, positive bowel sounds Neurological: non-focal, moves all 4 limbs Dx/Plan - Plan Plan: Acute hypoxic respiratory failure 2/2 suspected NSTEMI - BNP was elevated 526. CXR with increased interstitial markings and possible pulmonary edema - COVID/Flu negative - TSH, Lipid panel, A1C wnl - D-dimer was elevated. CTA ordered and no PE was found - Echo ordered and found EF of 55-60% - Strict I/O's, daily weights - Not currently requiring any oxygen Indeterminate trop, NSTEMI - EKG without acute ST or T wave changes - Trop 0.037--0.2--0.349--0.303 - Consulted cardiology Dr. London,stress test +, Cath + yesterday - Dr. Johnston consulted, plan for CABG but will need to be off ASA/Plavix - Continue thx lovenox until CABG CAD: has significant hx, will restart meds Anemia: noted on labs, likely chronic in nature HTN: missed home BP meds this AM, will restart HLD: home meds DMII: A1C wnl, home meds CKD3a: aware, avoid nephrotoxins H/o tob abuse: 30+ py smoking history, quit 11 years ago; abbe prn Code: Full Diet: HH VTE: Lovenox PCP: [facility] Dispo as of 05/30: No CP at this time. Appreciate cards recs. DC s/p CABG Addendum - Attending - Attending Attestation Date/Time: 06/02/20 2754 I personally evaluated the patient and discussed the management with Dr. Fermin. I agree with the History, Examination, Assessment and Plan documented above with any addition or exceptions noted below. Patient stable. Remains here and will stay over the weekend for systemic anticoagulation in anticipation of CABG next week.
[2020-06-02] MEDS: Clindamycin 150 MG CAP PO SCH ×2 (06:07→15:54)
[2020-06-02] MEDS: Acetaminophen/Codeine 30-300mg Tablet PO PRN ×4 (06:09→21:32)
[2020-06-02] MEDS: Enoxaparin Sodium 120 MG/0.8 ML SYRINGE SC SCH ×2 (08:55→21:33)
[2020-06-02] MEDS: Potassium Bicarbonate/Cit Ac 20 MEQ TAB PO SCH (08:55)
[2020-06-02] MEDS: tiZANidine HCl 4 MG TAB PO SCH ×3 (08:55→21:31)
[2020-06-02] MEDS: Furosemide 20 MG TAB PO SCH (08:57)
[2020-06-02] MEDS: Fenofibrate Nanocrystallized 145 MG TAB PO SCH (08:57)
[2020-06-02] MEDS: Loratadine 10 MG TAB PO SCH (08:58)
[2020-06-02] MEDS: Fish Oil 1,000 MG CAP PO SCH ×2 (08:58→21:32)
[2020-06-02] MEDS: Cholecalciferol 1,000 UNITS (25 MCG) TAB PO SCH (08:58)
[2020-06-02] MEDS: Escitalopram Oxalate 20 mg Tablet PO SCH (08:58)
[2020-06-02] MEDS: Amlodipine 5 MG TAB PO SCH (08:59)
[2020-06-02] MEDS: Rosuvastatin 20 MG TAB PO SCH (21:32)
[2020-06-02] MEDS: hydrOXYzine 25 MG TAB PO PRN (21:38)
[2020-06-02] MEDS: Melatonin 3 MG TAB PO PRN (21:38)
--- NOTE | 2020-06-03 08:13 | PDOC.FM ---
- Subjective Subjective: patient doing well this am. Denies CP, sob. - Objective MAR Reviewed: Yes Vital Signs & Weight: Vital Signs (12 hours) Temp Pulse Resp BP Pulse Ox 06/03/20 07:48 98 F 65 16 109/59 L 98 06/03/20 04:00 97.9 F 67 18 121/67 97 06/03/20 03:40 95 Weight Weight 122.016 kg I&O: 06/02/20 06/03/20 06/04/20 06:59 06:59 06:59 Intake Total 1222 2136 Output Total 1600 1450 Balance -378 686 Result Diagrams: 06/01/20 05:21 06/02/20 04:11 Phys Exam - Physical Examination Constitutional: NAD Respiratory: no wheezing, no rales, no rhonchi, clear to auscultation bilateral Cardiovascular: RRR, no significant murmur, no rub Gastrointestinal: soft, non-tender, no distention Dx/Plan - Plan Plan: Acute hypoxic respiratory failure 2/2 suspected NSTEMI - BNP was elevated 526. CXR with increased interstitial markings and possible pulmonary edema - COVID/Flu negative - TSH, Lipid panel, A1C wnl - D-dimer was elevated. CTA ordered and no PE was found - Echo ordered and found EF of 55-60% - Strict I/O's, daily weights - Not currently requiring any oxygen Indeterminate trop, NSTEMI - EKG without acute ST or T wave changes - Trop 0.037--0.2--0.349--0.303 - Consulted cardiology Dr. London,stress test +, Cath + yesterday - Dr. Johnston consulted, plan for CABG but will need to be off ASA/Plavix - Continue thx lovenox until CABG CAD: has significant hx, will restart meds Anemia: noted on labs, likely chronic in nature HTN: missed home BP meds this AM, will restart HLD: home meds DMII: A1C wnl, home meds CKD3a: aware, avoid nephrotoxins H/o tob abuse: 30+ py smoking history, quit 11 years ago; abbe prn Code: Full Diet: HH VTE: Lovenox PCP: Harley Byerso as of 05/30: No CP at this time. Appreciate cards recs. DC s/p CABG Addendum - Attending - Attending Attestation Date/Time: 06/03/20 1134 I personally evaluated the patient and discussed the management with Dr. Fermin. I agree with the History, Examination, Assessment and Plan documented above with any addition or exceptions noted below. Patient stable. Awaiting CABG next week.
[2020-06-03] MEDS: tiZANidine HCl 4 MG TAB PO SCH ×3 (09:06→20:48)
[2020-06-03] MEDS: Fenofibrate Nanocrystallized 145 MG TAB PO SCH (09:06)
[2020-06-03] MEDS: Fish Oil 1,000 MG CAP PO SCH ×2 (09:06→20:48)
[2020-06-03] MEDS: Loratadine 10 MG TAB PO SCH (09:06)
[2020-06-03] MEDS: Enoxaparin Sodium 120 MG/0.8 ML SYRINGE SC SCH ×2 (09:07→20:48)
[2020-06-03] MEDS: Furosemide 20 MG TAB PO SCH (09:08)
[2020-06-03] MEDS: Potassium Bicarbonate/Cit Ac 20 MEQ TAB PO SCH (09:08)
[2020-06-03] MEDS: Cholecalciferol 1,000 UNITS (25 MCG) TAB PO SCH (09:08)
[2020-06-03] MEDS: Escitalopram Oxalate 20 mg Tablet PO SCH (09:08)
[2020-06-03] MEDS: Amlodipine 5 MG TAB PO SCH (09:09)
[2020-06-03] MEDS: Acetaminophen/Codeine 30-300mg Tablet PO PRN ×3 (09:11→20:47)
[2020-06-03] MEDS: Rosuvastatin 20 MG TAB PO SCH (20:48)
[2020-06-03] MEDS: Melatonin 3 MG TAB PO PRN (20:49)
[2020-06-03] MEDS: hydrOXYzine 25 MG TAB PO PRN (20:50)
[2020-06-04 05:04] LABS: Hemoglobin 10.7 g/dL (14.0-18.0); Platelet Count 177 thou/uL (130-400)
--- NOTE | 2020-06-04 05:26 | PDOC.FM ---
- Subjective Subjective: Patient doing well this AM, no acute concerns, denies CP/SOB. - Objective Vital Signs & Weight: Vital Signs (12 hours) Temp Pulse Resp BP Pulse Ox 06/04/20 04:00 97.4 F L 60 18 106/61 95 06/04/20 00:00 97.9 F 59 L 16 95/58 L 96 06/03/20 20:00 97.7 F 66 22 H 116/67 95 Weight Weight 122.016 kg I&O: 06/02/20 06/03/20 06/04/20 06:59 06:59 06:59 Intake Total 1222 2136 1770 Output Total 1600 1450 3075 Balance -378 686 -1305 Result Diagrams: 06/04/20 04:23 06/04/20 04:23 Phys Exam - Physical Examination Constitutional: NAD Respiratory: no wheezing, no rales, no rhonchi, clear to auscultation bilateral Cardiovascular: RRR, no significant murmur, no rub Gastrointestinal: soft, non-tender, no distention Dx/Plan - Plan Plan: Acute hypoxic respiratory failure 2/2 suspected NSTEMI - BNP was elevated 526. CXR with increased interstitial markings and possible pulmonary edema - COVID/Flu negative - TSH, Lipid panel, A1C wnl - D-dimer was elevated. CTA ordered and no PE was found - Echo ordered and found EF of 55-60% - Strict I/O's, daily weights - Not currently requiring any oxygen Indeterminate trop, NSTEMI - EKG without acute ST or T wave changes - Trop 0.037--0.2--0.349--0.303 - Consulted cardiology Dr. London,stress test +, Cath + - Dr. Johnston consulted, plan for CABG but will need to be off ASA/Plavix - Continue thx lovenox until CABG CAD: has significant hx, will restart meds Anemia: noted on labs, likely chronic in nature HTN: missed home BP meds this AM, will restart HLD: home meds DMII: A1C wnl, home meds CKD3a: aware, avoid nephrotoxins H/o tob abuse: 30+ py smoking history, quit 11 years ago; abbe prn Code: Full Diet: HH VTE: Lovenox PCP: Harley Byerso as of 05/30: No CP at this time. Appreciate cards recs. DC s/p CABG Addendum - Attending - Attending Attestation Date/Time: 06/04/20 1454 I personally evaluated the patient and discussed the management with Dr. Fermin. I agree with the History, Examination, Assessment and Plan documented above with any addition or exceptions noted below. Patient stable. Continue on Lovenox until his CABG next week.
[2020-06-04 05:34] LABS: Anion Gap 15 mmol/L (10-20); BUN (Urea Nitrogen) 16 mg/dL (8.4-25.7); Calc. Creatinine Clearance 92 mL/min (70-130); Calcium 9.3 mg/dL (7.8-10.44); Carbon Dioxide 23 mmol/L (23-31); Chloride 103 mmol/L (98-107); Glucose 91 mg/dL (80-115); Potassium 3.8 mmol/L (3.5-5.1); Sodium 137 mmol/L (136-145)
[2020-06-04] MEDS: Potassium Bicarbonate/Cit Ac 20 MEQ TAB PO SCH (09:01)
[2020-06-04] MEDS: Fenofibrate Nanocrystallized 145 MG TAB PO SCH (09:05)
[2020-06-04] MEDS: Furosemide 20 MG TAB PO SCH (09:05)
[2020-06-04] MEDS: diphenhydrAMINE 25 MG CAP PO PRN (09:05)
[2020-06-04] MEDS: Enoxaparin Sodium 120 MG/0.8 ML SYRINGE SC SCH ×2 (09:05→21:16)
[2020-06-04] MEDS: tiZANidine HCl 4 MG TAB PO SCH ×3 (09:05→21:41)
[2020-06-04] MEDS: Fish Oil 1,000 MG CAP PO SCH ×2 (09:06→21:16)
[2020-06-04] MEDS: Amlodipine 5 MG TAB PO SCH (09:06)
[2020-06-04] MEDS: Cholecalciferol 1,000 UNITS (25 MCG) TAB PO SCH (09:06)
[2020-06-04] MEDS: Escitalopram Oxalate 20 mg Tablet PO SCH (09:06)
[2020-06-04] MEDS: Loratadine 10 MG TAB PO SCH (09:07)
[2020-06-04] MEDS: Acetaminophen/Codeine 30-300mg Tablet PO PRN ×3 (09:17→21:39)
[2020-06-04] MEDS ORDERED: Communication Order-Pharmacy FS SCH (09:22)
[2020-06-04] MEDS: Rosuvastatin 20 MG TAB PO SCH (21:15)
[2020-06-04] MEDS: hydrOXYzine 25 MG TAB PO PRN (21:40)
[2020-06-04] MEDS: Melatonin 3 MG TAB PO PRN (21:40)
--- NOTE | 2020-06-05 05:28 | PDOC.FM ---
- Subjective Subjective: Patient doing well this AM. No acute concerns. No acute events overnight - Objective MAR Reviewed: Yes Vital Signs & Weight: Vital Signs (12 hours) Temp Pulse Resp BP Pulse Ox 06/05/20 04:00 97.4 F L 65 18 95/64 93 L 06/05/20 00:00 98.1 F 59 L 16 104/52 L 94 L 06/04/20 20:00 98.1 F 57 L 18 106/58 L 94 L Weight Weight 120.202 kg I&O: 06/03/20 06/04/20 06/05/20 06:59 06:59 06:59 Intake Total 2136 2250 1400 Output Total 1450 3500 1100 Balance 686 -1250 300 Result Diagrams: 06/04/20 04:23 06/04/20 04:23 Phys Exam - Physical Examination Constitutional: NAD Respiratory: no wheezing, no rales, no rhonchi, clear to auscultation bilateral Cardiovascular: RRR, no significant murmur, no rub Gastrointestinal: soft, non-tender, no distention, positive bowel sounds Dx/Plan - Plan Plan: Acute hypoxic respiratory failure 2/2 suspected NSTEMI - BNP was elevated 526. CXR with increased interstitial markings and possible pulmonary edema - COVID/Flu negative - TSH, Lipid panel, A1C wnl - D-dimer was elevated. CTA ordered and no PE was found - Echo ordered and found EF of 55-60% - Strict I/O's, daily weights - Not currently requiring any oxygen Indeterminate trop, NSTEMI - EKG without acute ST or T wave changes - Trop 0.037--0.2--0.349--0.303 - Consulted cardiology Dr. London,stress test +, Cath + - Dr. Johnston consulted, plan for CABG but will need to be off ASA/Plavix - Continue thx lovenox until CABG CAD: has significant hx, will restart meds Anemia: noted on labs, likely chronic in nature HTN: missed home BP meds this AM, will restart HLD: home meds DMII: A1C wnl, home meds CKD3a: aware, avoid nephrotoxins H/o tob abuse: 30+ py smoking history, quit 11 years ago; abbe prn Code: Full Diet: HH VTE: Lovenox PCP: Harley George as of 05/30: No CP at this time. Appreciate cards recs. DC s/p CABG Addendum - Attending - Attending Attestation Date/Time: 06/05/20 6138 I personally evaluated the patient and discussed the management with Dr. Fermin. I agree with the History, Examination, Assessment and Plan documented above with any addition or exceptions noted below. Patient stable. Awaiting CABG early this week, hopefully tomorrow. Continue current management.
[2020-06-05] MEDS: tiZANidine HCl 4 MG TAB PO SCH ×3 (09:34→21:49)
[2020-06-05] MEDS: Enoxaparin Sodium 120 MG/0.8 ML SYRINGE SC SCH (09:34)
[2020-06-05] MEDS: Fenofibrate Nanocrystallized 145 MG TAB PO SCH (09:35)
[2020-06-05] MEDS: Amlodipine 5 MG TAB PO SCH (09:35)
[2020-06-05] MEDS: Potassium Bicarbonate/Cit Ac 20 MEQ TAB PO SCH (09:35)
[2020-06-05] MEDS: Cholecalciferol 1,000 UNITS (25 MCG) TAB PO SCH (09:35)
[2020-06-05] MEDS: Escitalopram Oxalate 20 mg Tablet PO SCH (09:35)
[2020-06-05] MEDS: Loratadine 10 MG TAB PO SCH (09:36)
[2020-06-05] MEDS: Furosemide 20 MG TAB PO SCH (09:36)
[2020-06-05] MEDS: Fish Oil 1,000 MG CAP PO SCH ×2 (09:36→21:51)
[2020-06-05] MEDS: diphenhydrAMINE 25 MG CAP PO PRN ×2 (09:38→21:50)
[2020-06-05] MEDS: Acetaminophen/Codeine 30-300mg Tablet PO PRN ×3 (10:47→21:50)
[2020-06-05] MEDS ORDERED: Enoxaparin Sodium 120 MG/0.8 ML SYRINGE SC SCH (18:00)
[2020-06-05] MEDS: Rosuvastatin 20 MG TAB PO SCH (21:50)
[2020-06-05] MEDS: hydrOXYzine 25 MG TAB PO PRN (22:55)
[2020-06-05] MEDS: Melatonin 3 MG TAB PO PRN (22:55)
[2020-06-06 03:37] LABS: #Basophils 0.1 thou/uL (0.0-0.2); #Eosinphils 0.5 thou/uL (0.0-0.7); #Lymphocytes 2.2 thou/uL (1.20-3.40); #Monocytes 0.6 thou/uL (0.11-0.59); #Neutrophils 2.6 thou/uL (1.40-6.50); %Basophils 1.5 % (0.0-1.0); %Eosinophils 8.1 % (0.0-10.0); %Lymphocytes 36.8 % (21.0-51.0); %Neutrophils 43.5 % (42.0-75.0); Hemoglobin 10.7 g/dL (14.0-18.0); Mean Corpuscular HGB CONC 33.5 g/dL (32.0-36.0); Mean Corpuscular Hemoglobin 32.5 pg (27.0-31.0); Mean Corpuscular Volume 97.1 fL (78.0-98.0); Platelet Count 193 thou/uL (130-400); RBC Distribution Width 14.6 % (11.5-14.5); White Blood Cell (WBC) Count 5.9 thou/uL (4.8-10.8)
[2020-06-06 03:44] LABS: PTT 47.5 sec (22.9-36.1)
[2020-06-06 03:45] LABS: Prothrombin Time 13.8 sec (12.0-14.7)
[2020-06-06 03:52] LABS: ALT (SGPT) 19 U/L (8-55); AST (SGOT) 38 U/L (5-34); Albumin 3.6 g/dL (3.4-4.8); Alkaline Phosphatase 56 U/L (40-110); Anion Gap 15 mmol/L (10-20); BUN (Urea Nitrogen) 20 mg/dL (8.4-25.7); Bilirubin, Total 0.5 mg/dL (0.2-1.2); Calc. Creatinine Clearance 87 mL/min (70-130); Calcium 9.1 mg/dL (7.8-10.44); Carbon Dioxide 23 mmol/L (23-31); Chloride 104 mmol/L (98-107); Globulin 3.2 g/dL (2.4-3.5); Glucose 105 mg/dL (80-115); Potassium 4.3 mmol/L (3.5-5.1); Protein, Total 6.8 g/dL (5.8-8.1); Sodium 138 mmol/L (136-145)
[2020-06-06 04:34] LABS: SARS-CoV-2 MS2 Positive; SARS-CoV-2 N Gene Negative; SARS-CoV-2 S Gene Negative; SARS-CoV-2 by NAA Not Detected (NotDetected); SARS-CoV-2 orf1ab Negative
--- NOTE | 2020-06-06 06:07 | PDOC.FM ---
- Subjective Subjective: Attempted to see patient several times, left room at 0537 and had not returned before 1830. Per reports, patient finished with procedure and was taken back to the OR due to significant bleeding. - Objective MAR Reviewed: Yes Vital Signs & Weight: Vital Signs (12 hours) Temp Pulse Resp BP Pulse Ox 06/06/20 03:41 97.8 F 65 18 117/66 92 L 06/05/20 23:32 97.8 F 62 18 126/74 98 06/05/20 20:00 97.8 F 63 16 122/73 98 Weight Weight 115.303 kg I&O: 06/04/20 06/05/20 06/06/20 06:59 06:59 06:59 Intake Total 2250 1910 2172 Output Total 3500 1100 2250 Balance -1250 810 -78 Result Diagrams: 06/06/20 14:32 06/06/20 14:32 Dx/Plan - Plan Plan: Acute hypoxic respiratory failure 2/2 suspected NSTEMI - BNP was elevated 526. CXR with increased interstitial markings and possible pulmonary edema - COVID/Flu negative - TSH, Lipid panel, A1C wnl - D-dimer was elevated. CTA ordered and no PE was found - Echo ordered and found EF of 55-60% - Strict I/O's, daily weights - Not currently requiring any oxygen Indeterminate trop, NSTEMI - EKG without acute ST or T wave changes - Trop 0.037--0.2--0.349--0.303 - Consulted cardiology Dr. London,stress test +, Cath + - CABG today with Dr. 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 Appreciate cards recs. DC s/p CABG
[2020-06-06] MEDS ORDERED: Albumin 5% 500 ML ONE (06:32)
[2020-06-06] MEDS ORDERED: Midazolam HCl 5 mg/5 ml Vial ONE ×2 (06:42→16:29)
[2020-06-06] MEDS ORDERED: Fentanyl 250 MCG/5 ML VIAL ONE ×2 (06:42→16:21)
[2020-06-06] MEDS ORDERED: Dexmedetomidine 200 MCG/2 ML VIAL ONE (06:43)
[2020-06-06] MEDS ORDERED: Heparin 10,000 UNITS/1 ML VIAL 30,000 UNITS in Sodium Chloride 0.9% 1,000 ML IVPB SCH (07:15)
[2020-06-06] MEDS ORDERED: PROPOFOL 200 MG/20 ML VIAL ONE ×2 (10:28→10:32)
[2020-06-06] MEDS ORDERED: Mannitol 12.5 GM/50 ML ONE (10:28)
[2020-06-06] MEDS ORDERED: Lidocaine 1% PF 5 ML VIAL ONE (10:28)
[2020-06-06] MEDS ORDERED: Lidocaine 2% PF 100 mg/5 ml Syringe ONE (10:28)
[2020-06-06] MEDS ORDERED: Thrombin 5000 UNITS/5 ML VIAL ONE (10:28)
[2020-06-06] MEDS ORDERED: Cardioplegic Soln 1,000 ML BAG ONE (10:28)
[2020-06-06] MEDS ORDERED: Potassium Chloride 60 MEQ/30 ML VIAL ONE (10:28)
[2020-06-06] MEDS ORDERED: Ondansetron PF 4 MG/2 ML Vial ONE (10:28)
[2020-06-06] MEDS ORDERED: Protamine Sulfate 250 MG/25 ML VIAL ONE (10:28)
[2020-06-06] MEDS ORDERED: Succinylcholine 200 MG/10 ml SYRINGE FS ONE (10:28)
[2020-06-06] MEDS ORDERED: Nitroglycerin 50 MG/250 ML BOT ONE (10:28)
[2020-06-06] MEDS ORDERED: PHENYLEPHRINE-NS 100 MCG/ML 10 ML SYRINGE ONE ×3 (10:28→13:30)
[2020-06-06] MEDS ORDERED: Heparin 30,000 units/30 ml VIAL ONE ×2 (10:28→10:32)
[2020-06-06] MEDS ORDERED: Magnesium Sulfate 1 GM/2 ML VIAL ONE (10:28)
[2020-06-06] MEDS ORDERED: Heparin 5,000 UNITS/ML VIAL ONE ×2 (10:28→10:32)
[2020-06-06] MEDS ORDERED: Papaverine 60 MG/2 ML VIAL ONE (10:28)
[2020-06-06] MEDS ORDERED: Aminocaproic Acid 5 GM/20 ML VIAL ONE (10:28)
[2020-06-06] MEDS ORDERED: Calcium Chloride 1 GM/10 ML Abboject SYRINGE ONE (10:28)
[2020-06-06] MEDS ORDERED: Vecuronium 10 MG VIAL ONE (10:28)
[2020-06-06] MEDS ORDERED: Glycopyrrolate 0.2 MG/ML 5 ML SYRINGE ONE (10:28)
[2020-06-06] MEDS ORDERED: Norepinephrine 4 MG/4 ML VIAL ONE (10:28)
[2020-06-06] MEDS ORDERED: Sodium Bicarb 50 MEQ/50 ML Abboject 8.4% SYRINGE ONE ×2 (10:28→15:08)
[2020-06-06] MEDS ORDERED: ePHEDrine 50 MG/ML VIAL ONE (10:32)
[2020-06-06] MEDS ORDERED: Rocuronium Bromide 10 MG/ML (10ML VIAL) ONE (10:32)
[2020-06-06] MEDS ORDERED: Insulin Regular 300 UNITS/3 ML VIAL ONE (10:57)
[2020-06-06] MEDS ORDERED: Ondansetron PF 4 MG/2 ML Vial IVP PRN (12:08)
[2020-06-06] MEDS ORDERED: hydrALAZINE 20 MG/ML VIAL SLOW IVP PRN (12:08)
[2020-06-06] MEDS ORDERED: Hetastarch 6% 500 ML 500 ML IVPB PRN (12:08)
[2020-06-06] MEDS ORDERED: Morphine 2 MG/ML VIAL SLOW IVP PRN ×2 (12:08→15:30)
[2020-06-06] MEDS ORDERED: HYDROcodone/Acetaminophen 5/325 mg Tablet PO PRN ×2 (12:08)
[2020-06-06] MEDS ORDERED: Post-Op Insulin Drip Protocol IVPB ONE (12:08)
[2020-06-06] MEDS ORDERED: Norepinephrine 8 MG/0.9% NS 250 ML IVPB PRN (12:08)
[2020-06-06] MEDS ORDERED: Potassium Chloride 20 MEQ/100 ML PREMIX BAG IVPB PRN (12:08)
[2020-06-06] MEDS ORDERED: Nitroglycerin 50 MG/250 ML BOT 250 ML IVPB PRN (12:08)
[2020-06-06] MEDS ORDERED: Mag-Al 1200 mg/1200 mg/30 ML UDCUP PO PRN (12:08)
[2020-06-06] MEDS ORDERED: DOPamine 400 MG/D5W 250 ML 250 ML IVPB PRN (12:08)
[2020-06-06] MEDS ORDERED: Fentanyl 100 MCG/2 ML VIAL SLOW IVP PRN ×2 (12:08)
[2020-06-06] MEDS ORDERED: Bisacodyl 10 MG SUPP PR PRN (12:08)
[2020-06-06] MEDS ORDERED: Guaifenesin DM 100-10/5 ML UDCUP PO PRN (12:08)
[2020-06-06] MEDS ORDERED: Bisacodyl 5 MG TAB PO PRN (12:08)
[2020-06-06] MEDS ORDERED: niCARdipine 25 MG in Sodium Chloride 0.9% 250 ML 250 ML IVPB PRN (12:08)
[2020-06-06] MEDS ORDERED: Magnesium 2 GM/50 ML 2 GM in Premix Bag 1 BAG IVPB SCH (12:15)
[2020-06-06] MEDS ORDERED: Potassium Chloride 10 MEQ in Premix Bag 1 BAG IVPB PRN (12:25)
[2020-06-06] MEDS ORDERED: Potassium Chloride 20 MEQ in Premix Bag 1 BAG IVPB PRN (12:27)
[2020-06-06] MEDS: CEFAZOLIN 2 GM in Premix Bag 1 BAG IVPB SCH ×2 (12:34→19:53)
[2020-06-06] MEDS: Lactated Ringer's 1,000 ML IV SCH (12:34)
[2020-06-06] MEDS ORDERED: Dextrose 50% Abboject 50 ML SYRINGE SLOW IVP PRN (13:00)
[2020-06-06] MEDS ORDERED: HUMULIN R 100 UNITS in Sodium Chloride 0.9% 100 ML IVPB SCH (13:00)
[2020-06-06] MEDS ORDERED: Dextrose 5% in Water 1,000 ML IV PRN (13:00)
[2020-06-06] MEDS ORDERED: Phenylephrine 10 MG/ML VIAL ONE (13:30)
[2020-06-06] MEDS: Potassium Bicarbonate/Cit Ac 20 MEQ TAB PO SCH (14:10)
[2020-06-06] MEDS: Cholecalciferol 1,000 UNITS (25 MCG) TAB PO SCH (14:11)
[2020-06-06] MEDS: Escitalopram Oxalate 20 mg Tablet PO SCH (14:11)
[2020-06-06] MEDS: Fish Oil 1,000 MG CAP PO SCH (14:11)
[2020-06-06] MEDS: Amlodipine 5 MG TAB PO SCH (14:11)
[2020-06-06] MEDS: Fenofibrate Nanocrystallized 145 MG TAB PO SCH (14:11)
[2020-06-06] MEDS: Furosemide 20 MG TAB PO SCH (14:12)
[2020-06-06] MEDS: tiZANidine HCl 4 MG TAB PO SCH (14:12)
[2020-06-06] MEDS: Loratadine 10 MG TAB PO SCH (14:12)
[2020-06-06 14:43] LABS: #Basophils 0.1 thou/uL (0.0-0.2); #Eosinphils 0.1 thou/uL (0.0-0.7); #Lymphocytes 0.9 thou/uL (1.20-3.40); #Monocytes 0.8 thou/uL (0.11-0.59); #Neutrophils 9.3 thou/uL (1.40-6.50); %Basophils 0.5 % (0.0-1.0); %Eosinophils 0.8 % (0.0-10.0); %Lymphocytes 7.7 % (21.0-51.0); %Monocytes 6.9 % (0.0-10.0); %Neutrophils 84.1 % (42.0-75.0); Hemoglobin 8.5 g/dL (14.0-18.0); Mean Corpuscular HGB CONC 32.5 g/dL (32.0-36.0); Mean Corpuscular Hemoglobin 32.1 pg (27.0-31.0); Mean Corpuscular Volume 98.8 fL (78.0-98.0); Mean Platelet Volume 9.7 fL (7.4-10.4); Platelet Count 188 thou/uL (130-400); RBC Distribution Width 14.6 % (11.5-14.5); Red Blood Cell (RBC) Count 2.66 mill/uL (4.70-6.10); White Blood Cell (WBC) Count 11.1 thou/uL (4.8-10.8)
[2020-06-06 14:50] LABS: INR-International Normal Ratio 1.3; PTT 37.1 sec (22.9-36.1); Prothrombin Time 16.9 sec (12.0-14.7)
--- NOTE | 2020-06-06 14:50 | RAD ---
Chest one view HISTORY: Heart surgery. COMPARISON: 05/28/2020. FINDINGS: Cardiac silhouette is magnified by projection. Shallow inspiration accentuates pulmonary ma rkings. Mediastinum is midline with aortic calcification and new postoperative changes. Tip of an endotrachea l catheter projects over the thoracic inlet. Nasogastric tube descends to the abdomen. Mediastinal drain is in place. Tip of a right subclavian central venous catheter overlies the right atrium. No evidence of pneumothorax. IMPRESSION : Interval postoperative changes of the mediastinum without other abnormality demonstrated.
[2020-06-06 14:56] LABS: Actual Bicarbonate (HCO3a) 20.2 mEq/L (22-28); Base Excess (BEa) -5.5 mEq/L (-2.0 to +3.0); CO2 Tension 40.3 mmHg (35.0-45.0); Calcium, Ionized (arterial) 1.14 mmol/L (1.12-1.30); Carboxyhemoglobin (COHb) 0.5 gm% (0.0-3.0); Hemoglobin (Hb) 8.9 g/dL (14.0-18.0); O2 Tension (PaO2), arterial 96.9 mmHg (> 80.0); Potassium - ABG Lab 4.51 mmol/L (3.70-5.30); pH, Arterial 7.32 (7.35-7.45)
[2020-06-06 14:58] LABS: Anion Gap 15 mmol/L (10-20); BUN (Urea Nitrogen) 19 mg/dL (8.4-25.7); Calc. Creatinine Clearance 85 mL/min (70-130); Carbon Dioxide 21 mmol/L (23-31); Chloride 108 mmol/L (98-107); Glucose 156 mg/dL (80-115); Potassium 4.6 mmol/L (3.5-5.1); Sodium 139 mmol/L (136-145)
[2020-06-06 14:59] LABS: ALV-art Gradient 280.525 mmHg (0-20); Puncture Site Arterial Line
[2020-06-06] MEDS ORDERED: Sodium Bicarb 50 MEQ/50 ML Abboject 8.4% SYRINGE IVP SCH (15:15)
[2020-06-06] MEDS ORDERED: DISCONTINUE PREVIOUS NARCOTIC PAIN MEDICATIONS AND BENZODIAZEPINES FS SCH (15:30)
[2020-06-06] MEDS ORDERED: Propofol BOLUS 1,000 MG/100 ML VIAL IV PRN (15:30)
[2020-06-06] MEDS ORDERED: Fentanyl BOLUS 250 ML IVPB PRN (15:30)
[2020-06-06] MEDS ORDERED: Propofol 1,000 MG/100 ML VIAL IV PRN (15:30)
[2020-06-06] MEDS: fentaNYL Citrate/PF 2,000 MCG in Sodium Chloride 0.9% 60 ML IV SCH (15:51)
--- NOTE | 2020-06-06 19:19 | RAD ---
Exam: Chest one view HISTORY:Status post open heart surgery. Comparison: 06/06/2020 at 2:39 PM FINDINGS: Cardiac silhouette:Stable cardiac silhouette. Redemonstration of sternotomy wires, endotracheal tube and right-sided internal jugular vascular catheter. Redemonstration right-sided chest tube. Aorta: Atherosclerosis Pulmonary vessels: Normal Costophrenic angles: Clear LUNGS: Scattered opacities in the right lower lobe. Pneumothorax: None Osseous abnormalities: None IMPRESSION: 1. Scattered opacities in the right lower lobe. 2. Findings compatible with recent open heart surgery.
[2020-06-06 19:32] LABS: Actual Bicarbonate (HCO3a) 20.2 mEq/L (22-28); Base Excess (BEa) -5.5 mEq/L (-2.0 to +3.0); CO2 Tension 40.1 mmHg (35.0-45.0); Calcium, Ionized (arterial) 1.07 mmol/L (1.12-1.30); Carboxyhemoglobin (COHb) 0.5 gm% (0.0-3.0); Hemoglobin (Hb) 7.9 g/dL (14.0-18.0); O2 Tension (PaO2), arterial 77.6 mmHg (> 80.0); Potassium - ABG Lab 4.02 mmol/L (3.70-5.30); pH, Arterial 7.32 (7.35-7.45)
[2020-06-06 19:34] LABS: ALV-art Gradient 157.475 mmHg (0-20); Puncture Site Arterial Line
[2020-06-06 19:35] LABS: Hemoglobin 7.8 g/dL (14.0-18.0); Platelet Count 179 thou/uL (130-400)
[2020-06-06 19:36] LABS: Hemoglobin 7.7 g/dL (14.0-18.0)
[2020-06-06 19:42] LABS: INR-International Normal Ratio 1.3; PTT 46.5 sec (22.9-36.1); Prothrombin Time 16.8 sec (12.0-14.7)
[2020-06-06 19:56] LABS: Potassium 4.3 mmol/L (3.5-5.1)
[2020-06-06] MEDS ORDERED: Protamine Sulfate 50 MG/5 ML VIAL IVPB SCH (20:15)
[2020-06-06] MEDS: Famotidine/PF 20 mg/2ml Vial SLOW IVP SCH (20:51)
[2020-06-06] MEDS: Rosuvastatin 20 MG TAB PO SCH (20:52)
[2020-06-07] MEDS: Lorazepam 2 MG/ML VIAL SLOW IVP PRN ×2 (00:27→09:18)
[2020-06-07] MEDS: Lactated Ringer's 1,000 ML IV SCH ×3 (01:31→23:39)
[2020-06-07] MEDS: CEFAZOLIN 2 GM in Premix Bag 1 BAG IVPB SCH (04:00)
[2020-06-07] MEDS: Norepinephrine 8 MG in Dextrose 5% in Water 242 ML IVPB PRN ×2 (04:06→17:22)
[2020-06-07 04:51] LABS: #Eosinphils 0.3 thou/uL (0.0-0.7); #Lymphocytes 0.5 thou/uL (1.20-3.40); #Monocytes 0.9 thou/uL (0.11-0.59); #Neutrophils 7.9 thou/uL (1.40-6.50); %Eosinophils 3.3 % (0.0-10.0); %Lymphocytes 4.8 % (21.0-51.0); %Monocytes 9.7 % (0.0-10.0); %Neutrophils 82.2 % (42.0-75.0); Hemoglobin 8.1 g/dL (14.0-18.0); Mean Corpuscular HGB CONC 33.5 g/dL (32.0-36.0); Mean Corpuscular Hemoglobin 31.7 pg (27.0-31.0); Mean Corpuscular Volume 94.8 fL (78.0-98.0); Mean Platelet Volume 9.7 fL (7.4-10.4); Platelet Count 172 thou/uL (130-400); Red Blood Cell (RBC) Count 2.57 mill/uL (4.70-6.10); White Blood Cell (WBC) Count 9.6 thou/uL (4.8-10.8)
[2020-06-07 05:02] LABS: Anion Gap 14 mmol/L (10-20); BUN (Urea Nitrogen) 19 mg/dL (8.4-25.7); Calc. Creatinine Clearance 66 mL/min (70-130); Calcium 7.6 mg/dL (7.8-10.44); Carbon Dioxide 22 mmol/L (23-31); Chloride 110 mmol/L (98-107); Glucose 151 mg/dL (80-115); Potassium 4.3 mmol/L (3.5-5.1); Sodium 142 mmol/L (136-145)
--- NOTE | 2020-06-07 06:10 | PDOC.FM ---
- Subjective Subjective: Patient on vent, alert, arousable, follows commands. - Objective MAR Reviewed: Yes Vital Signs & Weight: Vital Signs (12 hours) Temp Resp Pulse Ox 06/07/20 04:00 18 06/07/20 03:00 99.9 F H 06/07/20 02:00 15 06/07/20 00:00 98.8 F 15 06/06/20 22:00 14 06/06/20 20:00 97.8 F 12 06/06/20 19:55 97.8 F 06/06/20 19:05 99 Weight Weight 115.938 kg Most Recent Monitor Data Heart Rate from ECG 80 NIBP 95/55 NIBP BP-Mean 68 Respiration from ECG 24 SpO2 94 I&O: 06/05/20 06/06/20 06/07/20 06:59 06:59 06:59 Intake Total 1910 2172 2180 Output Total 1100 2250 1760 Balance 810 -78 420 Result Diagrams: 06/07/20 03:50 06/07/20 03:50 Phys Exam - Physical Examination Constitutional: NAD intubated Respiratory: no wheezing, no rales, no rhonchi L lung with decreased breath sounds Cardiovascular: RRR, no significant murmur, no rub Post op bandage over chest, CDI Gastrointestinal: soft, non-tender, no distention, positive bowel sounds Dx/Plan - Plan Plan: Acute hypoxic respiratory failure 2/2 suspected NSTEMI - BNP was elevated 526. CXR with increased interstitial markings and possible pulmonary edema - COVID/Flu negative - TSH, Lipid panel, A1C wnl - D-dimer was elevated. CTA ordered and no PE was found - Echo ordered and found EF of 55-60% - Strict I/O's, daily weights Indeterminate trop, NSTEMI - EKG without acute ST or T wave changes - Trop 0.037--0.2--0.349--0.303 - Consulted cardiology Dr. London,stress test +, Cath + - CABG 06/06/[address] 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 Appreciate cards recs. DC s/p CABG Addendum - Attending - Attending Attestation Date/Time: 06/07/20 1312 I personally evaluated the patient and discussed the management with Dr. Fermin I agree with the History, Examination, Assessment and Plan documented above with any addition or exceptions noted below. 64 yo male admitted for severe CAD CABG x4 with requiring explore x2 due to persistent anatomosis bleeding on 06/06/20 Received 2 units RBC and FFP Patient remains intubated and stable. Awake and alert on vent. CT surg, CC, & Cards managing at this time. Will follow alongside specialist until transferred to the floor. Will need cardiac rehab. Will start process. Hunter
--- NOTE | 2020-06-07 06:15 | OP ---
DATE OF PROCEDURE: 06/06/2020 PREOPERATIVE DIAGNOSIS: Coronary artery disease. POSTOPERATIVE DIAGNOSIS: Coronary artery disease. PROCEDURE PERFORMED: Coronary artery bypass graft x4, left internal mammary artery small but good flow to a 1.5 mm left anterior descending artery, radial small to a 1.5 mm diagonal, saphenous vein good quality to a 1.5 to 2 mm mid obtuse marginal, and saphenous vein to a 1.5 mm posterior descending artery. DELIVERER FOOD: Antwan Rae MD. TRANSFUSION: None. DESCRIPTION OF PROCEDURE: After adequate anesthesia had been obtained, the patient was prepped and draped and Dr. Rae did an endovascular vein harvest of the left greater saphenous vein while I harvested a segment of the radial artery from the left arm after ensuring good collateral flow. I then closed this and turned my attention to median sternotomy, which was performed entering the right pleura, which was closed over a drain with 2-0 Vicryl. Left internal mammary artery was then harvested and the patient heparinized, mammary divided distally and passed posterior to the thymus through an incision in the pericardium. Aorta and right atrium were cannulated and the aorta did have calcification in its mid anterior portion and right lateral portion and these were avoided with suturing and clamping. Following institution of cardiopulmonary bypass, the patient had a rather large heart. Vessels were inspected for grafting and the cross-clamp was then applied and a liter of cold blood cardioplegia was given while the OM was opened and end-to-side anastomosis completed. There was vigorous bleeding coming from this open coronary and a bulldog clamp was used to control this while the suture line was completed. Following this, another 100 mL of cold blood cardioplegia was given down the aortic root following which the PDA anastomosis was then completed. It also had significant bleeding. Following completion of the suture line, there was no bleeding and then the radial to the diagonal and PATE to LAD were completed. The cross-clamp was removed and the partial occluding clamp placed. Two proximal anastomoses were performed on the aortic root with the vein grafts marked with rings into the plasencia of the OM graft, the radial graft was placed. The patient was then weaned from cardiopulmonary bypass. Cannula was removed and protamine given systemically. Aortic suture line was secured with a 4-0 Prolene suture. Mediastinal drain was then placed following which the sternum was reapproximated with #7 interrupted wire using vancomycin paste on the sternal edges, platelet-rich blood and platelet-poor plasma. Subcutaneous tissue and skin were closed in layers. Job ID: [id number]
--- NOTE | 2020-06-07 06:34 | OP ---
DATE OF PROCEDURE: 06/06/2020 PREOPERATIVE DIAGNOSIS: Postoperative hemorrhage. PROCEDURE PERFORMED: Mediastinal exploration. ANESTHESIA: General. ESTIMATED BLOOD LOSS: 200. DESCRIPTION OF PROCEDURE: After completion of the initial surgery, the patient was getting ready to be moved off the operating table and it was noted that he had 250 to 300 of dark blood in the chamber. He was observed for about 10 minutes and then it was elected to reopen the chest, which was then performed. The wires were removed and there was a moderate amount of blood in the mediastinum. Area was thoroughly suctioned and irrigated and there was some oozing from the sternal bone, particularly the manubrium and this was coagulated. All grafts lie nicely in the pericardium. The distal OM anastomosis did have some clot around it and it was removed, but with the heart elevated, there was no active bleeding, although the pressure was low at that point due to elevation of the heart. It was inspected multiple times and one other time, there was some clot at the anastomosis, but no active bleeding was ever visualized. After copious irrigation, the sternum was reapproximated with #7 interrupted wire using vancomycin paste on the sternal edges, platelet-rich blood, and platelet-poor plasma. Subcutaneous tissue and skin were closed in layers. Job ID: [id number]
--- NOTE | 2020-06-07 06:37 | OP ---
DATE OF PROCEDURE: 06/06/2020 PREOPERATIVE DIAGNOSIS: Postoperative hemorrhage. PROCEDURE PERFORMED: Mediastinal exploration with control of bleeding from distal anastomosis. PHARMACY INFORMATICIST: Thony. ESTIMATED BLOOD LOSS: Minimal. TRANSFUSION: None. DESCRIPTION OF PROCEDURE: After adequate anesthesia had been obtained, the patient's chest tubes were removed and prepped and draped. Previous median sternotomy was reopened. Wires removed, retractors placed, and a scant amount of blood was aspirated. Heart was elevated and there were once again clots around the distal circumflex graft and these were removed and no active bleeding was seen. The area was then irrigated again and the heart again elevated and vein manipulated and finally there was a bleeding site on the lateral wall, which was secured with a [id number] Prolene suture. Following this, the area was again inspected and manipulated. No further bleeding occurred. #28 mediastinal drain was placed and 19 right pleural drain and the sternum was then reapproximated with #7 interrupted wire using vancomycin paste on the sternal edges. Platelet-rich blood and platelet-poor plasma were not utilized. Subcutaneous tissue was closed with interrupted [id number] Vicryl sutures and then the skin was closed. The patient is to be taken to the ICU in guarded condition. Job ID: [id number]
[2020-06-07 07:44] LABS: Actual Bicarbonate (HCO3a) 22.8 mEq/L (22-28); Base Excess (BEa) -4.3 mEq/L (-2.0 to +3.0); CO2 Tension 52.4 mmHg (35.0-45.0); Hemoglobin (Hb) 8.5 g/dL (14.0-18.0); O2 Tension (PaO2), arterial 61.2 mmHg (> 80.0); pH, Arterial 7.26 (7.35-7.45)
[2020-06-07 07:48] LABS: Puncture Site Arterial Line
--- NOTE | 2020-06-07 08:00 | RAD ---
Chest one view HISTORY: Heart surgery. Follow-up. COMPARISON: 06/06/2020. FINDINGS: Cardiac silhouette is magnified by projection. Shallow inspiration accentuates pulmonary ma rkings. Mediastinum is midline with postoperative changes. Lines and tubes unchanged in position. Mild atelec tasis at the left lung base. No evidence of pneumothorax. Old right rib fractures. IMPRESSION : Stable postoperative appearance of the chest.
[2020-06-07] MEDS: Famotidine/PF 20 mg/2ml Vial SLOW IVP SCH ×2 (08:28→20:38)
[2020-06-07] MEDS: Insulin Regular 300 UNITS/3 ML VIAL SC PRN ×3 (08:28→16:07)
[2020-06-07] MEDS ORDERED: Aspirin 325 MG TAB PO SCH (09:00)
[2020-06-07] MEDS ORDERED: Aspirin 300 MG Suppository PR SCH (10:00)
[2020-06-07] MEDS: Polyethylene Glycol 3350 17 GM Packet PO SCH (10:05)
--- NOTE | 2020-06-07 10:52 | PRG ---
DATE OF SERVICE: 06/07/2020 SUBJECTIVE: Mr. Manuel remains intubated. He does have intermittent sedation. He remains on Levophed for blood pressure support. He did undergo repeat sternotomy due to bleeding. Initially, underwent bypass surgery x4 with PATE to the LAD, radial to diagonal, saphenous vein graft to an OM, and saphenous vein graft to PDA. PHYSICAL EXAMINATION: VITAL SIGNS: Blood pressure 95/63, pulse 89, respirations 20. LUNGS: Clear to auscultation. HEART: Regular rate and rhythm. ABDOMEN: Soft, nontender, and nondistended. EXTREMITIES: 1+ pitting edema. PERTINENT LABORATORY DATA: Platelet count 172, hemoglobin 8.1. Creatinine of 1.8, which is up from 1.39. IMPRESSION: 1. Coronary artery disease. 2. Status post bypass surgery. 3. Re-exploration after hemorrhage noted. RECOMMENDATIONS: 1. Continue pressor support with the Levophed. We will try and wean off Levophed as blood pressure is able to be maintained. 2. Chest tube management per Dr. Bairon Johnston. 3. Vent management per Pulmonary. Job ID: [id number]
--- NOTE | 2020-06-07 11:01 | CON ---
DATE OF CONSULTATION: HISTORY OF PRESENT ILLNESS: He is a 64-year-old gentleman, status post CABG and re-exploration for bleed. He is back on the vent, intubated and sedated. He is hypoxic. History says that he has known coronary artery disease status post cardiac cath. PAST MEDICAL HISTORY: Additional past medical history is: 1. Multiple coronary events with stents. 2. Diabetes. PREVIOUS SURGERIES: 1. Diverticulitis. 2. Back pain. SOCIAL HISTORY: Apparently nonsmoker. MEDICATIONS: His home medicines prior to admission include: 1. Cyclobenzaprine. 2. Flexeril. 3. Tizanidine. 4. Zyrtec. 5. 20. 6. Lasix 20. 7. Amlodipine 5. 8. Toprol-XL 100. 9. Protonix. 10. Ranexa 500 twice a day. REVIEW OF SYSTEMS: Unobtainable as he is sedated, vented. PHYSICAL EXAMINATION: VITAL SIGNS: His temperature was 99, pulse 89, blood pressure , bladder temperature is 101.1, blood pressure . CHEST: Rhonchi. No wheezing. No crackles. CARDIAC: Normal S1 and S2. No gallops. ABDOMEN: Soft. LABORATORY DATA: White count 9000, hemoglobin and hematocrit 8 and 24, and platelet count 172. PO2 of 61, pCO2 of 52, pH 7.26. His creatinine is 1.8, BUN is 19. X-ray shows no obvious infiltrate. ASSESSMENT: 1. Status post coronary artery bypass graft with postoperative hemorrhage and mediastinal exploration. 2. Azotemia. 3. Diabetes. PLAN: Empiric antibiotics and neb treatment are initiated. We will hold off on weaning into the next 24 hours until he is stabilized. This is a 45-minute critical care time. Job ID: [id number]
[2020-06-07] MEDS: Cefepime 1 GM in Sodium Chloride 0.9% 100 ML IVPB SCH ×2 (11:06→23:20)
[2020-06-07] MEDS: fentaNYL Citrate/PF 2,000 MCG in Sodium Chloride 0.9% 60 ML IV SCH (12:00)
[2020-06-07 14:20] LABS: Hemoglobin 8.9 g/dL (14.0-18.0); Platelet Count 163 thou/uL (130-400)
[2020-06-07 14:28] LABS: INR-International Normal Ratio 1.2; Prothrombin Time 15.7 sec (12.0-14.7)
[2020-06-07 14:29] LABS: PTT 35.5 sec (22.9-36.1)
[2020-06-07] MEDS: Acetaminophen 325 MG TAB PO PRN ×2 (16:08→22:22)
[2020-06-07 20:16] LABS: Hemoglobin 8.5 g/dL (14.0-18.0); Platelet Count 152 thou/uL (130-400)
[2020-06-07] MEDS: Rosuvastatin 20 MG TAB PO SCH (20:38)
[2020-06-07] MEDS ORDERED: Digoxin 0.5 MG/2 ML AMP SLOW IVP SCH ×2 (22:15→23:30)
[2020-06-07] MEDS: Amiodarone 450 MG, Admixture Fee 1 EACH in Dextrose 5% in Water 250 ML IVPB SCH (22:15)
[2020-06-07] MEDS ORDERED: Amiodarone 150 MG, Admixture Fee 1 EACH in Dextrose 5% in Water 100 ML IVPB SCH (22:15)
[2020-06-08] MEDS: Norepinephrine 8 MG in Dextrose 5% in Water 242 ML IVPB PRN ×2 (03:47→21:41)
[2020-06-08 04:53] LABS: #Basophils 0.1 thou/uL (0.0-0.2); #Eosinphils 0.8 thou/uL (0.0-0.7); #Monocytes 1.3 thou/uL (0.11-0.59); #Neutrophils 6.7 thou/uL (1.40-6.50); %Basophils 0.6 % (0.0-1.0); %Eosinophils 7.6 % (0.0-10.0); %Lymphocytes 10.5 % (21.0-51.0); %Neutrophils 68.2 % (42.0-75.0); Mean Corpuscular HGB CONC 33.8 g/dL (32.0-36.0); Mean Corpuscular Hemoglobin 32.2 pg (27.0-31.0); Mean Corpuscular Volume 95.3 fL (78.0-98.0); Mean Platelet Volume 9.5 fL (7.4-10.4); Platelet Count 157 thou/uL (130-400); RBC Distribution Width 14.6 % (11.5-14.5); Red Blood Cell (RBC) Count 2.48 mill/uL (4.70-6.10); White Blood Cell (WBC) Count 9.8 thou/uL (4.8-10.8)
[2020-06-08 05:17] LABS: Anion Gap 13 mmol/L (10-20); BUN (Urea Nitrogen) 26 mg/dL (8.4-25.7); Calc. Creatinine Clearance 52 mL/min (70-130); Calcium 7.9 mg/dL (7.8-10.44); Carbon Dioxide 22 mmol/L (23-31); Chloride 108 mmol/L (98-107); Glucose 158 mg/dL (80-115); Potassium 4.3 mmol/L (3.5-5.1); Sodium 139 mmol/L (136-145)
[2020-06-08] MEDS: fentaNYL Citrate/PF 2,000 MCG in Sodium Chloride 0.9% 60 ML IV SCH ×2 (05:52→23:02)
[2020-06-08] MEDS: Amiodarone 450 MG, Admixture Fee 1 EACH in Dextrose 5% in Water 250 ML IVPB SCH ×2 (05:56→21:41)
--- NOTE | 2020-06-08 05:56 | PDOC.FM ---
- Subjective Subjective: Patient still intubated, intermittently sedated. Requiring 5 of levophed, 0.5mg/min amiodarone drips at time of visit. Started on empiric abx therapy yesterday. - Objective MAR Reviewed: Yes Vital Signs & Weight: Vital Signs (12 hours) Temp Pulse Resp Pulse Ox 06/08/20 04:00 100.8 F H 21 H 06/08/20 02:00 16 06/08/20 00:06 100 25 H 92 L 06/08/20 00:00 101.2 F H 18 06/07/20 23:39 149 H 06/07/20 22:22 101.1 F H 149 H 06/07/20 22:14 172 H 06/07/20 22:00 21 H 06/07/20 20:00 16 06/07/20 19:00 100.5 F H 06/07/20 18:50 93 L 06/07/20 18:38 85 12 92 L 06/07/20 18:00 15 Weight Admit Weight 115.666 kg Weight 116.709 kg Most Recent Monitor Data Heart Rate from ECG 91 NIBP 99/55 NIBP BP-Mean 69 Respiration from ECG 20 SpO2 91 I&O: 06/06/20 06/07/20 06/08/20 06:59 06:59 06:59 Intake Total 2172 3622 1746.8 Output Total 2250 1810 850 Balance -78 1812 896.8 Result Diagrams: 06/08/20 04:10 06/08/20 04:10 Phys Exam - Physical Examination Constitutional: NAD intubated, moderately sedated, arousable, tracks HEENT: PERRLA, moist MMs Diffuse rales bilaterally Cardiovascular: RRR, no significant murmur, no rub Gastrointestinal: soft, no distention Musculoskeletal: no edema DRISS Hose ble Dx/Plan - Plan Plan: Acute hypoxic respiratory failure 2/2 suspected NSTEMI - BNP was elevated 526 on admission. CXR with increased interstitial markings and possible pulmonary edema - COVID/Flu negative - TSH, Lipid panel, A1C wnl - D-dimer was elevated. CTA ordered and no PE was found - Echo ordered and found EF of 55-60% - Strict I/O's, daily weights Indeterminate trop, NSTEMI - EKG without acute ST or T wave changes - Trop 0.037--0.2--0.349--0.303 - Consulted cardiology Dr. London,stress test +, Cath + - CABG 06/06/[address] 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 Appreciate cards recs. DC s/p CABG Addendum - Attending - Attending Attestation Date/Time: 06/08/20 1049 I personally evaluated the patient and discussed the management with Dr. Fermin I agree with the History, Examination, Assessment and Plan documented above with any addition or exceptions noted below. 64 yo male admitted for severe CAD CABG x4 with requiring explore x2 due to persistent anatomosis bleeding on 06/06/20 Received 1 MTP (3 RBC, 2 FFP, 1 vaibhav plt) Patient remains intubated and stable. Awake and alert on vent. CT surg, CC, & Cards managing at this time. Will follow alongside specialist until transferred to the floor. Will need cardiac rehab, process started. Now with increasing fever. Bld and urine cultures ordered. Antibx adjusted by CC. Linezolid started. Unsure reasoning. Cefepime continued. No evidence of VRE, TSS, or severe MRSA at this time. Worsening renal function today. Will need to monitor closely on renal function. Concern for perfusion and possible hemorrhage due to history and poor tissue i ntegrity during surgery. LFTs checked this AM as well. Chest tube with > 1L collection. Now with increased mucus production from lungs but previous tobacco use in history. However due with recent findings and exposure in hospital will repeat COVID testing as well. Ddimer and procal added. Unsure true values due to MTP use. ECHO to be done today. CT surg following closely today. ABrayMD
[2020-06-08 07:34] LABS: Actual Bicarbonate (HCO3a) 22.1 mEq/L (22-28); Base Excess (BEa) -3.3 mEq/L (-2.0 to +3.0); CO2 Tension 40.9 mmHg (35.0-45.0); Calcium, Ionized (arterial) 1.09 mmol/L (1.12-1.30); Carboxyhemoglobin (COHb) 0.8 gm% (0.0-3.0); Hemoglobin (Hb) 8.1 g/dL (14.0-18.0); O2 Tension (PaO2), arterial 63.6 mmHg (> 80.0); Potassium - ABG Lab 4.23 mmol/L (3.70-5.30); pH, Arterial 7.35 (7.35-7.45)
[2020-06-08 07:35] LABS: ALV-art Gradient 241.775 mmHg (0-20); Puncture Site LRA
[2020-06-08] MEDS: Aspirin 300 MG Suppository PR SCH (08:24)
[2020-06-08] MEDS: Polyethylene Glycol 3350 17 GM Packet PO SCH (08:25)
[2020-06-08] MEDS: Famotidine/PF 20 mg/2ml Vial SLOW IVP SCH ×2 (08:26→21:41)
[2020-06-08] MEDS: Lorazepam 2 MG/ML VIAL SLOW IVP PRN ×4 (08:48→22:17)
--- NOTE | 2020-06-08 08:55 | PRG ---
DATE OF SERVICE: 06/08/2020 SUBJECTIVE: Guido Manuel is a 64-year-old gentleman, status post CABG, awake and responsive this morning. OBJECTIVE: VITAL SIGNS: His temperature is 100.8, respiratory rate , blood pressure 110/78. GENERAL: Awake, responsive, moves both extremities. CHEST: Decreased breath sounds. No wheezing. CARDIAC: Normal S1, S2. ABDOMEN: No masses. LABORATORY DATA: White count 9000, hemoglobin and hematocrit 8 and 23, platelet count 157. His PO2 of 63, pCO2 of , rate of 12 on 50%. His creatinine is 2, BUN is 26. Sputum is showing gram-positive cocci in clusters. IMAGING DATA: X-ray shows bibasilar infiltrates. ASSESSMENT: Status post coronary artery bypass grafting, respiratory failure, obesity renal failure. Consider weaning and extubation today. I am going to add Zyvox until we get all the cultures back since he may have Staph. Otherwise, continue aggressive neb treatments, supportive care, PT. One-half hour of critical care time. Job ID: [id number]
[2020-06-08] MEDS: Linezolid 600 MG TAB PO SCH ×2 (09:19→22:18)
--- NOTE | 2020-06-08 10:05 | PRG ---
DATE OF SERVICE: 06/08/2020 SUBJECTIVE: The patient remains on Levophed at 10 mcg, which has been stable postoperatively from his need for return to the operating room for hemorrhage. Postoperatively, he had some continued bleeding probably related to coagulopathy and that seem to have corrected yesterday. His chest x-ray today shows bilateral pleural effusions and the mediastinum does not appear quite as prominent. He remained on the ventilator with continued thick secretions and the antibiotics have been ordered yesterday and revised today. His laboratory values, his hemoglobin is about 8, has drifted slightly since yesterday morning when he received a unit of blood. His creatinine, however, has increased from 1.8 to 2.3, but he is still making about 10 to 45 cc of urine an hour just with IV fluids. He was transiently in atrial fibrillation last night and this responded to amiodarone and digoxin. PHYSICAL EXAMINATION: GENERAL: He is awake and alert on the ventilator when questioned and appropriate. LUNGS: Have bilateral rhonchi. CHEST: Dressing is dry. His chest tube output is minimal over the last 12 hours. At this time, continue supportive care with ventilator management per Dr. Gibbons. He is on good antibiotic coverage and his hemodynamics have stabilized and we will go ahead and check an echo because his cardiac function appeared fairly normal intraoperatively and he is still requiring some Levophed. Job ID: [id number]
[2020-06-08] MEDS: Cefepime 1 GM in Sodium Chloride 0.9% 100 ML IVPB SCH ×2 (10:29→22:01)
--- NOTE | 2020-06-08 11:21 | RAD ---
PORTABLE CHEST: Date: 06/08/2020 HISTORY: Postop open heart surgery. COMPARISON: Prior day's study. FINDINGS: Endotracheal and NG tubes are in satisfactory position. Heart size is enlarged with postop sternotomy changes. Pulmonary vessels are engorged. Increased density in the lung bases could represent atelect asis with possibly effusion. IMPRESSION: Bibasilar atelectatic lung change. Possible small associated effusions. POS: [facility]
[2020-06-08 12:49] LABS: ALT (SGPT) Less than 7 U/L (8-55); AST (SGOT) 30 U/L (5-34); Albumin 3.1 g/dL (3.4-4.8); Alkaline Phosphatase 39 U/L (40-110); Bilirubin, Direct 0.6 mg/dL (0.1-0.3); Bilirubin, Total 0.7 mg/dL (0.2-1.2); Protein, Total 5.3 g/dL (5.8-8.1)
--- NOTE | 2020-06-08 13:29 | PRG ---
DATE OF SERVICE: 06/08/2020 SUBJECTIVE: Mr. Manuel continues to be intubated. He did have an episode of atrial fibrillation last evening. He is placed on digoxin and amiodarone therapy and converted to sinus rhythm. He is currently not on pressors. OBJECTIVE: VITAL SIGNS: Blood pressure 134/71, pulse 92, temperature afebrile. LUNGS: Clear to auscultation. HEART: Regular rate and rhythm. ABDOMEN: Soft, nontender, nondistended. EXTREMITIES: No edema. IMPRESSION: 1. Coronary artery disease. 2. Status post bypass surgery. 3. Postop atrial fibrillation. 4. Re-exploration due to bleeding. RECOMMENDATIONS: Mr. Manuel is off pressors. He did have an episode of atrial fibrillation likely related to postoperative changes. We will continue amiodarone therapy for the next 24 hours. We will continue to monitor closely. Job ID: [id number]
[2020-06-08] MEDS ORDERED: Digoxin 0.5 MG/2 ML AMP SLOW IVP SCH (15:00)
[2020-06-08] MEDS: Insulin Regular 300 UNITS/3 ML VIAL SC PRN (15:49)
[2020-06-08] MEDS: Lactated Ringer's 1,000 ML IV SCH (16:00)
[2020-06-08 16:11] LABS: Platelet Count 154 thou/uL (130-400)
[2020-06-08 17:12] LABS: SARS-CoV-2 MS2 Positive; SARS-CoV-2 N Gene Negative; SARS-CoV-2 S Gene Negative; SARS-CoV-2 by NAA Not Detected (NotDetected); SARS-CoV-2 orf1ab Negative
[2020-06-08] MEDS: Dexamethasone 4 mg/ml Vial SLOW IVP SCH (21:41)
[2020-06-08] MEDS: Rosuvastatin 20 MG TAB PO SCH (21:41)
[2020-06-09 05:14] LABS: #Eosinphils 0.1 thou/uL (0.0-0.7); #Lymphocytes 0.5 thou/uL (1.20-3.40); #Monocytes 0.3 thou/uL (0.11-0.59); %Basophils 0.3 % (0.0-1.0); %Lymphocytes 6.1 % (21.0-51.0); %Monocytes 4.3 % (0.0-10.0); %Neutrophils 88.3 % (42.0-75.0); Hemoglobin 7.7 g/dL (14.0-18.0); Mean Corpuscular HGB CONC 32.9 g/dL (32.0-36.0); Mean Corpuscular Volume 97.3 fL (78.0-98.0); Mean Platelet Volume 9.2 fL (7.4-10.4); Platelet Count 140 thou/uL (130-400); RBC Distribution Width 14.8 % (11.5-14.5); Red Blood Cell (RBC) Count 2.39 mill/uL (4.70-6.10); White Blood Cell (WBC) Count 7.9 thou/uL (4.8-10.8)
[2020-06-09] MEDS: Insulin Regular 300 UNITS/3 ML VIAL SC PRN ×4 (05:28→22:59)
[2020-06-09 05:43] LABS: Anion Gap 11 mmol/L (10-20); BUN (Urea Nitrogen) 22 mg/dL (8.4-25.7); Calc. Creatinine Clearance 82 mL/min (70-130); Calcium 8.1 mg/dL (7.8-10.44); Carbon Dioxide 25 mmol/L (23-31); Chloride 108 mmol/L (98-107); Glucose 182 mg/dL (80-115); Potassium 4.9 mmol/L (3.5-5.1); Sodium 139 mmol/L (136-145)
--- NOTE | 2020-06-09 05:47 | PDOC.FM ---
- Subjective Subjective: Patient intubated and sedated. Currently on amiodarone drip, pressor support stopped yesterday. - Objective MAR Reviewed: Yes Vital Signs & Weight: Vital Signs (12 hours) Temp Pulse Resp Pulse Ox 06/09/20 04:00 99.7 F H 06/09/20 00:00 100.3 F H 12 06/08/20 23:41 96 24 H 92 L 06/08/20 20:00 100.2 F H 13 96 06/08/20 18:24 95 21 H 99 06/08/20 18:00 24 H Weight Admit Weight 115.666 kg Weight 116.709 kg Most Recent Monitor Data Heart Rate from ECG 92 NIBP 130/77 NIBP BP-Mean 94 Respiration from ECG 18 SpO2 92 I&O: 06/07/20 06/08/20 06/09/20 06:59 06:59 06:59 Intake Total 3622 3036.8 1305 Output Total 1044 750 2691 Balance 1812 2166.8 -40 Result Diagrams: 06/09/20 04:35 06/09/20 04:35 Phys Exam - Physical Examination Constitutional: NAD Intubated, sedated bilateral diffuse rales, improved from yesterday Cardiovascular: RRR, no significant murmur, no rub Gastrointestinal: soft, no distention, positive bowel sounds Musculoskeletal: no edema DRISS hose on Dx/Plan - Plan Plan: Acute hypoxic respiratory failure 2/2 suspected NSTEMI - BNP was elevated 526 on admission. CXR with increased interstitial markings and possible pulmonary edema - COVID/Flu negative - TSH, Lipid panel, A1C wnl - D-dimer was elevated. CTA ordered and no PE was found - Echo ordered and found EF of 55-60% - Strict I/O's, daily weights Indeterminate trop, NSTEMI - EKG without acute ST or T wave changes - Trop 0.037--0.2--0.349--0.303 - Consulted cardiology Dr. London,stress test +, Cath + - CABG 06/06/[address] Johnston, post op instructions appreciated Post Op CABG X4 - CABG complicated by recurrent bleeding with mediastinal exploration - Levophed pressure support stopped 06/08 - amiodarone drip 2/2 A Fib likely 2/2 post op changes - Cardiology, Pulmonology, CV surgery consulted - Post op fever-COVID -, on broad spectrum abx therapy, improving today, continue to monitor CAD: has significant hx, on appropriate medications Anemia: noted on labs, likely chronic in nature HTN: controlled HLD: home meds DMII: A1C wnl, home meds CKD3a: aware, avoid nephrotoxins H/o tob abuse: 30+ py smoking history, quit 11 years ago; duoneisai prn Code: Full Diet: HH VTE: held, DRISS zavala PCP: Harley Byerso as of 05/30: No CP at this time. Appreciate cards recs. DC s/p CABG Addendum - Attending - Attending Attestation Date/Time: 06/09/20 2520 I personally evaluated the patient and discussed the management with Dr. Fermin I agree with the History, Examination, Assessment and Plan documented above with any addition or exceptions noted below. 64 yo male admitted for severe CAD complicated by acute hypoxic respiratory distress and NSTEMI CABG x4 with requiring exploration x2 due to persistent anatomosis bleeding on 06/06/20 Received 1 MTP (3 RBC, 2 FFP, 1 vaibhav plt). Today 2 uRBC. Patient remains intubated and stable. Awake and alert on vent. CT surg, CC, & Cards managing at this time. Will follow alongside specialist until transferred to the floor. Will need cardiac rehab, process started. No longer requiring pressor support. Fever improving. Covid negative. Continue current antibx at this time. Unsure source. Renal function improved with fluids and blood volume. Chest tube output improving. Continue to monitor. Hunter
[2020-06-09] MEDS: Lactated Ringer's 1,000 ML IV SCH ×2 (06:05→20:29)
[2020-06-09 06:41] LABS: Actual Bicarbonate (HCO3a) 22.4 mEq/L (22-28); Base Excess (BEa) -2.6 mEq/L (-2.0 to +3.0); CO2 Tension 39.4 mmHg (35.0-45.0); Calcium, Ionized (arterial) 1.13 mmol/L (1.12-1.30); Carboxyhemoglobin (COHb) 0.7 gm% (0.0-3.0); Hemoglobin (Hb) 8.1 g/dL (14.0-18.0); O2 Tension (PaO2), arterial 66.5 mmHg (> 80.0); Potassium - ABG Lab 4.82 mmol/L (3.70-5.30); pH, Arterial 7.37 (7.35-7.45)
[2020-06-09 06:42] LABS: Puncture Site Arterial Line
[2020-06-09] MEDS: Furosemide 40 MG/4 ML VIAL SLOW IVP SCH (07:31)
--- NOTE | 2020-06-09 07:44 | PRG ---
DATE OF SERVICE: 06/09/2020 The patient has had a low-grade fever. He is off his pressors and he remains in sinus rhythm. Currently on amnio and fentanyl drip. Chest x-ray is relatively unremarkable. His hemoglobin has drifted a tiny bit down to 7.7 from 8.1 over the past 24 hours. He has improvement in his creatinine back toward baseline levels. Chest tubes were removed this morning and we will treat with some IV Lasix and hope to move toward extubation. Job ID: [id number]
[2020-06-09] MEDS: Polyethylene Glycol 3350 17 GM Packet PO SCH (08:26)
[2020-06-09] MEDS: Dexamethasone 4 mg/ml Vial SLOW IVP SCH ×3 (08:27→20:30)
[2020-06-09] MEDS: Aspirin 300 MG Suppository PR SCH (08:27)
[2020-06-09] MEDS: Famotidine/PF 20 mg/2ml Vial SLOW IVP SCH ×2 (08:27→20:29)
[2020-06-09] MEDS: Linezolid 600 MG TAB PO SCH ×2 (08:28→20:45)
--- NOTE | 2020-06-09 09:15 | PRG ---
DATE OF SERVICE: 06/09/2020 SUBJECTIVE: A 64-year-old gentleman, intubated in the vent, sedated. OBJECTIVE: VITAL SIGNS: His temperature is still 99.7, pulse 80, blood pressure 130/85, respiratory rate 18. CHEST: No wheezing. No crackles. CARDIAC: Normal S1, S2. ABDOMEN: Soft. LABORATORY DATA: White count 7000, H and 7 and 23, platelet count is normal. PO2 is only 66, pCO2 of and a PEEP of 5. Creatinine 1.46, slightly better and his glucose is 182. ASSESSMENT: 1. Respiratory failure, status post CABG, re-exploration. 2. Respiratory failure. PLAN: It is unclear why he is having difficulty breathing. Echo was ordered. Still hypoxic. He is on antibiotics to cover for Staph since his sputum did reveal gram-positive cocci in cultures. We are going to start nutrition today, hopefully start weaning tomorrow. One-half hour of critical time. Job ID: [id number]
--- NOTE | 2020-06-09 10:02 | RAD ---
PORTABLE CHEST: Date: 06/09/2020 HISTORY: Postop sternotomy. COMPARISON: 06/08/2020. FINDINGS/IMPRESSION: ET tube and NG tube remain in place. Cardiomegaly with postop sternotomy change. Mild vascular conges tion. Small bilateral effusions and evidence of bibasilar atelectasis. No acute interval change from yesterday. POS: AGW
[2020-06-09 10:15] LABS: Magnesium 2.1 mg/dL (1.6-2.6)
[2020-06-09 10:31] LABS: Phosphorus 1.6 mg/dL (2.3-4.7)
[2020-06-09] MEDS: Lorazepam 2 MG/ML VIAL SLOW IVP PRN ×5 (10:37→23:53)
[2020-06-09] MEDS: Amiodarone 450 MG, Admixture Fee 1 EACH in Dextrose 5% in Water 250 ML IVPB SCH (10:37)
[2020-06-09] MEDS: Cefepime 1 GM in Sodium Chloride 0.9% 100 ML IVPB SCH ×2 (10:45→23:05)
[2020-06-09] MEDS ORDERED: Potassium Phosphate 15 MMOL in Sodium Chloride 0.9% 250 ML 250 ML IVPB SCH (11:00)
--- NOTE | 2020-06-09 17:20 | PRG ---
DATE OF SERVICE: 06/09/2020 SUBJECTIVE: Mr. Manuel remains intubated. He is back in sinus rhythm. He has been on IV amiodarone, and we will continue. OBJECTIVE: VITAL SIGNS: Blood pressure 128/72, pulse 70, respirations 20. The patient is currently on low-dose norepinephrine. LUNGS: Clear to auscultation. HEART: Regular rate and rhythm. ABDOMEN: Soft, nontender, nondistended. EXTREMITIES: No edema. PERTINENT LABORATORY DATA: Hemoglobin 7.7, down from 8.0. IMPRESSION: 1. Severe coronary artery disease. 2. Status post bypass surgery with reexploration. 3. Anemia. 4. Postop atrial fibrillation. RECOMMENDATIONS: Mr. Manule's status is unchanged. He remains intubated. He is on low-dose Levophed. We will continue current support. Avoid use of beta blockers currently due to concomitant use of a Levophed. Job ID: [id number]
[2020-06-09] MEDS: fentaNYL Citrate/PF 2,000 MCG in Sodium Chloride 0.9% 60 ML IV SCH (17:29)
[2020-06-09] MEDS: PHOS-NAK 1 PKT PACK PO SCH (20:30)
[2020-06-09] MEDS: Rosuvastatin 20 MG TAB PO SCH (20:41)
[2020-06-10 03:58] LABS: #Lymphocytes 0.4 thou/uL (1.20-3.40); #Monocytes 0.4 thou/uL (0.11-0.59); #Neutrophils 8.4 thou/uL (1.40-6.50); %Eosinophils 0.1 % (0.0-10.0); %Lymphocytes 4.6 % (21.0-51.0); %Monocytes 4.3 % (0.0-10.0); Hemoglobin 8.4 g/dL (14.0-18.0); Mean Corpuscular HGB CONC 33.4 g/dL (32.0-36.0); Mean Corpuscular Hemoglobin 32.2 pg (27.0-31.0); Mean Corpuscular Volume 96.4 fL (78.0-98.0); Mean Platelet Volume 9.1 fL (7.4-10.4); Platelet Count 151 thou/uL (130-400); RBC Distribution Width 14.5 % (11.5-14.5); Red Blood Cell (RBC) Count 2.62 mill/uL (4.70-6.10); White Blood Cell (WBC) Count 9.3 thou/uL (4.8-10.8)
[2020-06-10] MEDS: Amiodarone 450 MG, Admixture Fee 1 EACH in Dextrose 5% in Water 250 ML IVPB SCH ×2 (04:10→21:03)
[2020-06-10 04:42] LABS: Anion Gap 10 mmol/L (10-20); BUN (Urea Nitrogen) 23 mg/dL (8.4-25.7); Calc. Creatinine Clearance 107 mL/min (70-130); Calcium 8.3 mg/dL (7.8-10.44); Carbon Dioxide 25 mmol/L (23-31); Chloride 106 mmol/L (98-107); Glucose 158 mg/dL (80-115); Potassium 4.6 mmol/L (3.5-5.1); Sodium 136 mmol/L (136-145)
[2020-06-10] MEDS: Insulin Regular 300 UNITS/3 ML VIAL SC PRN ×3 (04:44→15:52)
--- NOTE | 2020-06-10 05:33 | PDOC.FM ---
- Subjective Subjective: Patient intubated and sedated. On amiodarone drip, 75cc/hr LR - Objective MAR Reviewed: Yes Vital Signs & Weight: Vital Signs (12 hours) Temp Pulse Resp Pulse Ox 06/10/20 05:00 98.2 F 06/10/20 04:00 12 06/10/20 02:00 12 06/10/20 00:16 67 12 98 06/10/20 00:00 98.6 F 12 06/09/20 22:00 12 06/09/20 20:00 12 06/09/20 19:53 97 06/09/20 19:08 73 12 95 06/09/20 19:00 98.7 F 06/09/20 18:00 12 Weight Admit Weight 115.666 kg Weight 120.2 kg Most Recent Monitor Data Heart Rate from ECG 73 NIBP 138/82 NIBP BP-Mean 100 Respiration from ECG 17 SpO2 97 I&O: 06/08/20 06/09/20 06/10/20 06:59 06:59 06:59 Intake Total 3036.8 2597.7 1981.6 Output Total 870 1455 1600 Balance 2166.8 1142.7 381.6 Result Diagrams: 06/10/20 03:30 06/10/20 03:30 Phys Exam - Physical Examination Constitutional: NAD intubated and sedated Diffuse end expiratory rhonchi Cardiovascular: RRR, no significant murmur, no rub Gastrointestinal: soft, no distention, positive bowel sounds nonpitting edema in BL upper extremities Dx/Plan - Plan Plan: Acute hypoxic respiratory failure 2/2 suspected NSTEMI - BNP was elevated 526 on admission. CXR with increased interstitial markings and possible pulmonary edema - COVID/Flu negative - TSH, Lipid panel, A1C wnl - D-dimer was elevated. CTA ordered and no PE was found - Echo ordered and found EF of 55-60% - Strict I/O's, daily weights Indeterminate trop, NSTEMI - EKG without acute ST or T wave changes - Trop 0.037--0.2--0.349--0.303 - Consulted cardiology Dr. London,stress test +, Cath + - CABG 06/06/[address] 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 Appreciate specialist recs. Addendum - Attending - Attending Attestation Date/Time: 06/10/20 1314 I personally evaluated the patient and discussed the management with Dr. Fermin I agree with the History, Examination, Assessment and Plan documented above with any addition or exceptions noted below. 64 yo male admitted for severe CAD complicated by acute hypoxic respiratory distress and NSTEMI CABG x4 with requiring exploration x2 due to persistent anatomosis bleeding on 06/06/20 Received 1 MTP (3 RBC, 2 FFP, 1 vaibhav plt). 2 uRBC on 06/09/20. Doing well today. Extubated. DESHAUN resolved. Continue to monitor. Hunter
--- NOTE | 2020-06-10 06:56 | PRG ---
DATE OF SERVICE: SUBJECTIVE: Patient's vital signs are stable. Postoperative day number three with a blood pressure with no pressors at about 130 and a heart rate about 70 on IV amiodarone. He has also been started on oral tube feedings and remains ventilated, currently on 60%. His chest x-ray overall looks good with no infiltrates. LABORATORY VALUES: Hemoglobin is 8.4, post 1 unit of blood yesterday. White count is normal. His creatinine has again decreased to 1.18 and he had a modicum of response to his IV Lasix yesterday and is scheduled to be re-dosed this morning. He received some phosphorus for a low phosphorus yesterday and his magnesium levels are adequate. His lungs are clear. Abdomen is soft with bowel sounds present. He is currently sedated on infusion, but does move all extremities to voice stimulation. Hopefully, his sedation can be decreased today and he will tolerate that and can begin the weaning process from the ventilator. Job ID: [id number]
[2020-06-10] MEDS: Furosemide 40 MG/4 ML VIAL SLOW IVP SCH (08:20)
[2020-06-10] MEDS: Aspirin 300 MG Suppository PR SCH (08:20)
[2020-06-10] MEDS: Polyethylene Glycol 3350 17 GM Packet PO SCH (08:20)
[2020-06-10] MEDS: Dexamethasone 4 mg/ml Vial SLOW IVP SCH ×3 (08:21→21:15)
[2020-06-10] MEDS: Famotidine/PF 20 mg/2ml Vial SLOW IVP SCH (08:21)
[2020-06-10] MEDS: PHOS-NAK 1 PKT PACK PO SCH ×2 (08:24→21:15)
--- NOTE | 2020-06-10 08:33 | RAD ---
Portable frontal chest radiograph: 06/10/2020 COMPARISON: 06/09/2020 HISTORY: Ventilated patient FINDINGS: Stable endotracheal tube, nasogastric tube, and right vascular catheter. Pulmonary vascular congestion noted. Nonspecific increased density noted in the left base which may signify infiltrate or volume loss. Blunting of left costophrenic angle may signify small volume left pleural fluid. Midline sternotomy wires are present. IMPRESSION: No significant interval change.
[2020-06-10] MEDS: Linezolid 600 MG TAB PO SCH ×2 (08:36→21:15)
[2020-06-10] MEDS ORDERED: DC Sedation Protocol FS ONE (08:52)
--- NOTE | 2020-06-10 09:27 | PRG ---
DATE OF SERVICE: SUBJECTIVE: A 64-year-old gentleman. This morning, he is on CPAP for 30 minutes, doing better. OBJECTIVE: VITAL SIGNS: Saturations are 95%, pulse 80, blood pressure 115/85 . GENERAL: Appears to be agitated. His I's and nose appears to be negative. CHEST: No wheezing. No crackles. CARDIAC: Normal S1 . LABORATORY DATA: Unremarkable. Glucose 158. Thyroid function normal. White count 9000. X-ray shows stable findings. ASSESSMENT: 1. Respiratory failure. 2. Status post CABG. 3. Encephalopathy. 4. Severe deconditioning. PLAN: We are going to try and hopefully extubate today. Discontinue IV fluids. Continue antibiotics. Continue steroids for another 24 hours. One-half hour of critical time. Job ID: [id number]
[2020-06-10] MEDS: Cefepime 1 GM in Sodium Chloride 0.9% 100 ML IVPB SCH ×2 (10:31→23:20)
--- NOTE | 2020-06-10 15:50 | PRG ---
DATE OF SERVICE: 06/10/2020 SUBJECTIVE: Mr. Manuel is stable. His blood pressure and heart rate appear stable. He has not had any further dysrhythmias overnight. He continues with IV amiodarone. OBJECTIVE: VITAL SIGNS: Blood pressure 121/72, pulse 75, respirations 20. LUNGS: Clear to auscultation. HEART: Regular rate and rhythm. ABDOMEN: Soft, nontender, and nondistended. EXTREMITIES: No edema. PERTINENT LABORATORY DATA: Hemoglobin 8.4, platelet count 151, creatinine 1.1. TSH 1.5. IMPRESSION: 1. Coronary artery disease. 2. Status post bypass surgery. 3. Postoperative atrial fibrillation. RECOMMENDATIONS: Mr. Manuel's status is stable. Continue current treatment. His blood pressure and heart rate appear stable. I would recommend low-dose beta-renny therapy. We will start metoprolol 12.5 b.i.d. Continue IV amiodarone. Job ID: [id number]
--- NOTE | 2020-06-10 20:03 | PDOC.BPN ---
- Brief Progress Note Transition of care note Patient presented to hospital / shortness of breath. Concern initially was CHF exacerbation but was found to have NSTEMI. ECHO showed EF of 55-60% on 05/28. Stress showed EF 41% with reversible ischemia in distal anteroseptal wall, Cath showed chronically occluded circumflex and significant disease in RCA. Decision was made to proceed with CABG X4. Patient was held inpatient for thx lovenox treatment for 5 days while we held Plavix and ASA. On 06/06 patient underwent CABG complicated by bleeding at anastomosis site requiring 2 more operations. Post op course was complicated by hypotension requiring pressor support weaned off on 06/09, A fib requiring Amiodarone drip, and sputum culture growing gram positive cocci requiring broad spectrum abx. Patient was extubated 06/10/20. Management of post op care per CT surgery.
[2020-06-10] MEDS: Metoprolol Tartrate 25 MG TAB PO SCH (21:15)
[2020-06-10] MEDS: Famotidine 20 MG TAB PO SCH (21:15)
[2020-06-10] MEDS: Rosuvastatin 20 MG TAB PO SCH (21:17)
[2020-06-11 04:44] LABS: #Lymphocytes 0.8 thou/uL (1.20-3.40); #Monocytes 0.7 thou/uL (0.11-0.59); #Neutrophils 9.4 thou/uL (1.40-6.50); %Basophils 0.1 % (0.0-1.0); %Eosinophils 0.3 % (0.0-10.0); %Lymphocytes 7.4 % (21.0-51.0); %Monocytes 6.3 % (0.0-10.0); %Neutrophils 85.8 % (42.0-75.0); Mean Corpuscular HGB CONC 32.2 g/dL (32.0-36.0); Mean Corpuscular Hemoglobin 30.9 pg (27.0-31.0); Platelet Count 213 thou/uL (130-400); Red Blood Cell (RBC) Count 2.91 mill/uL (4.70-6.10)
[2020-06-11 04:59] LABS: Anion Gap 13 mmol/L (10-20); BUN (Urea Nitrogen) 20 mg/dL (8.4-25.7); Calc. Creatinine Clearance 115 mL/min (70-130); Calcium 8.7 mg/dL (7.8-10.44); Carbon Dioxide 26 mmol/L (23-31); Chloride 107 mmol/L (98-107); Glucose 145 mg/dL (80-115); Potassium 4.2 mmol/L (3.5-5.1); Sodium 142 mmol/L (136-145)
[2020-06-11 05:13] LABS: Phosphorus 1.2 mg/dL (2.3-4.7)
[2020-06-11] MEDS: Insulin Regular 300 UNITS/3 ML VIAL SC PRN ×2 (05:13→10:54)
--- NOTE | 2020-06-11 05:54 | PDOC.FM ---
- Subjective Subjective: Patient lethargic this morning. On 5L NC. Able to follow commands such as moving extremities. He opens his eyes to command but immediately shuts them and cannot keep them open during our interaction. When asking him questions, he grunts to answer. Talking to nursing, it seems as if this has been his "baseline" since being extubated yesterday. Before intubation he was A&Ox3. NG tube was placed overnight since patient has been altered. He has been increasingly agitated trying to pull out the tube, so soft restraints were placed. - Objective MAR Reviewed: Yes Vital Signs & Weight: Vital Signs (12 hours) Temp Pulse BP Pulse Ox 06/11/20 04:00 98.0 F 06/11/20 01:42 81 97 06/11/20 01:41 98 06/11/20 00:00 98.1 F 06/10/20 23:20 77 148/81 H 06/10/20 20:00 98.1 F 94 L 06/10/20 18:54 94 L 06/10/20 18:52 93 L Weight Admit Weight 115.666 kg Weight 120.2 kg Most Recent Monitor Data Heart Rate from ECG 123 NIBP 137/92 NIBP BP-Mean 107 Respiration from ECG 22 SpO2 93 I&O: 06/09/20 06/10/20 06/11/20 06:59 06:59 06:59 Intake Total 2597.7 1981.6 1073 Output Total 1455 1600 2960 Balance 1142.7 381.6 -1887 Result Diagrams: 06/11/20 04:30 06/11/20 04:30 Phys Exam - Physical Examination lethargic HEENT: moist MMs Neck: supple Respiratory: no wheezing, clear to auscultation bilateral on 5L NC Cardiovascular: RRR Gastrointestinal: soft, non-tender Musculoskeletal: no edema, pulses present Neurological: moves all 4 limbs patient follows commands Deviation from normal: unable to assess as patient grunts to respond to questions -: sternotomy covered with bandage, which is clean and dry Dx/Plan - Plan Plan: Encephalopathy 2/2 unknown source -patient can follow commands but is very lethargic and grunts to answer questions. Does not open eyes unless asked to do so and is barely able to follow that command -ASE protocol in place, will call to see if patient has substance abuse history -patient has also been increasingly agitated since NG tube was placed for feeds 2/2 his mental status. Pending speech consult -could be 2/2 dexamethasone TID. Scheduled to be d/c this evening, but will speak with pulm to see if we can d/c this morning -patient's bicarb this morning on labs is normal, so am not thinking this is 2/2 hypercapnia -MRI brain to rule out stroke. If negative, will consult neuro -neuro checks q4 H Acute hypoxic respiratory failure 2/2 suspected NSTEMI - BNP was elevated 526 on admission. CXR with increased interstitial markings and possible pulmonary edema - COVID/Flu negative - TSH, Lipid panel, A1C wnl - D-dimer was elevated. CTA ordered and no PE was found - Echo ordered and found EF of 55-60% - Strict I/O's, daily weights - satting well on 5L NC (06/11), will continue to weane as able Indeterminate trop, NSTEMI - EKG without acute ST or T wave changes - Trop 0.037--0.2--0.349--0.303 - Consulted cardiology Dr. London,stress test +, Cath + - CABG 06/06/[address] Johnston, post op instructions appreciated Post Op CABG X4 - CABG complicated by recurrent bleeding with mediastinal exploration - Levophed pressure support stopped - amiodarone drip 2/2 A Fib likely 2/2 post op changes. Cards added Metoprolol 12.5mg BID (06/10), will increase today given patient's elevated BPs - Cardiology, Pulmonology, CV surgery consulted - Post op fever-COVID -, on broad spectrum abx therapy Linezolid (06/08) and Cefepime (06/07), continue to monitor. Will follow up with pulm to see if we can d/c Hypophosphatemia -other electrolytes WNL -Phos NAK scheduled BID -continue to monitor and replace as indicated CAD: has significant hx, on appropriate medications Anemia: noted on labs, likely chronic in nature HTN: controlled HLD: home meds DMII: A1C wnl, home meds CKD3a: aware, avoid nephrotoxins H/o tob abuse: 30+ py smoking history, quit 11 years ago; abbe prn Code: Full Diet: HH VTE: DRISS osborn PCP: Harley Dispo: pending specialist recs, pending mental status Addendum - Attending - Attending Attestation Date/Time: 06/11/20 4513 I personally evaluated the patient and discussed the management with Dr. Tobias I agree with the History, Examination, Assessment and Plan documented above with any addition or exceptions noted below. 64 yo male admitted for severe CAD complicated by acute hypoxic respiratory distress and NSTEMI CABG x4 with requiring exploration x2 due to persistent anatomosis bleeding on 06/06/20 Received 1 MTP (3 RBC, 2 FFP, 1 vaibhav plt). 2 uRBC on 06/09/20. Remains extubated. Not following commands well. Dyspagia overnight. NG placed for mediation use. Imaging ordered. Labs reviewed and without significant findings for delirium/encephalopathy. Contact family to discuss possible withdrawal. Start ASE protocol. Consult neuro as indicated. Pulm, CV surg, Cards managing. Transfer to tele today if stable. Hunter
[2020-06-11] MEDS ORDERED: Aspirin 325 MG TAB PO SCH (09:00)
[2020-06-11] MEDS: Dexamethasone 4 mg/ml Vial SLOW IVP SCH ×3 (09:02→20:23)
[2020-06-11] MEDS: Famotidine 20 MG TAB PO SCH ×2 (09:03→20:23)
[2020-06-11] MEDS: Polyethylene Glycol 3350 17 GM Packet PO SCH (09:03)
[2020-06-11] MEDS: Furosemide 40 MG/4 ML VIAL SLOW IVP SCH (09:03)
[2020-06-11] MEDS: PHOS-NAK 1 PKT PACK PO SCH ×2 (09:03→20:23)
[2020-06-11] MEDS: Metoprolol Tartrate 25 MG TAB PO SCH (09:03)
[2020-06-11] MEDS: Aspirin 325 MG TAB PO SCH (09:42)
[2020-06-11] MEDS ORDERED: Metoprolol Tartrate 25 MG TAB PO SCH ×2 (10:00→21:00)
[2020-06-11] MEDS: Cefepime 1 GM in Sodium Chloride 0.9% 100 ML IVPB SCH ×2 (10:52→22:12)
[2020-06-11] MEDS: Metoprolol Tartrate 50 MG TAB PO SCH ×2 (10:53→20:23)
[2020-06-11] MEDS: Linezolid 600 MG TAB PO SCH ×2 (10:54→20:23)
[2020-06-11] MEDS: Acetaminophen 325 MG TAB PO PRN (11:03)
--- NOTE | 2020-06-11 18:10 | PRG ---
DATE OF SERVICE: 06/11/2020 SUBJECTIVE: Mr. Manuel is more lucid today. His family is in the room. OBJECTIVE: VITAL SIGNS: He has a temp of 100, heart rate 80, blood pressure 159/86, respiratory rate of 22. LUNGS: Clear. HEART: Regular rhythm. ABDOMEN: Soft. LABORATORY DATA: An MRI was ordered, but I do not feel that he could go down and hold still for an MRI since he is only intermittently cooperative, so I have canceled this. White count is 11, hemoglobin 9, platelets 213,000. Electrolytes normal, creatinine normal. IMPRESSION: Encephalopathy today is improved according to the nurses who are taking care of him. I do not feel CT imaging even is necessary now and it is more appropriate in my opinion just to continue with supportive care. Job ID: [id number]
[2020-06-11] MEDS: Rosuvastatin 20 MG TAB PO SCH (20:23)
[2020-06-12] MEDS: Amiodarone 450 MG, Admixture Fee 1 EACH in Dextrose 5% in Water 250 ML IVPB SCH (02:51)
[2020-06-12 04:54] LABS: #Lymphocytes 1.1 thou/uL (1.20-3.40); #Monocytes 1.1 thou/uL (0.11-0.59); #Neutrophils 13.6 thou/uL (1.40-6.50); %Eosinophils 0.2 % (0.0-10.0); %Monocytes 7.1 % (0.0-10.0); %Neutrophils 85.7 % (42.0-75.0); Hemoglobin 9.4 g/dL (14.0-18.0); Mean Corpuscular HGB CONC 32.3 g/dL (32.0-36.0); Mean Corpuscular Hemoglobin 30.9 pg (27.0-31.0); Mean Corpuscular Volume 95.6 fL (78.0-98.0); Mean Platelet Volume 8.5 fL (7.4-10.4); Platelet Count 255 thou/uL (130-400); RBC Distribution Width 15.2 % (11.5-14.5); Red Blood Cell (RBC) Count 3.04 mill/uL (4.70-6.10); White Blood Cell (WBC) Count 15.9 thou/uL (4.8-10.8)
[2020-06-12 05:11] LABS: Anion Gap 15 mmol/L (10-20); BUN (Urea Nitrogen) 23 mg/dL (8.4-25.7); Calc. Creatinine Clearance 101 mL/min (70-130); Carbon Dioxide 26 mmol/L (23-31); Chloride 108 mmol/L (98-107); Glucose 136 mg/dL (80-115); Magnesium 1.9 mg/dL (1.6-2.6); Potassium 4.2 mmol/L (3.5-5.1); Sodium 145 mmol/L (136-145)
[2020-06-12 05:28] LABS: Phosphorus 1.7 mg/dL (2.3-4.7)
--- NOTE | 2020-06-12 06:07 | PDOC.FM ---
- Subjective Subjective: Patient doing better this morning. Able to have some interaction and follow commands more so than yesterday. Still seems hard to arouse. He is on BiPAP; apparently there was an order in for BiPAP at night, although he has been doing well on 4-5L of NC and was on 4L NC yesterday before bed when he was started on BiPAP. Still on amio gtt. No acute complaints. Spoke with his who said he is usually A&Ox3 at baseline and interacts normally. He has no history of substance use, including alcohol. - Objective MAR Reviewed: Yes Vital Signs & Weight: Vital Signs (12 hours) Temp Pulse Pulse Ox 06/12/20 04:00 97.8 F 98 06/12/20 03:59 92 97 06/12/20 03:25 92 L 06/12/20 00:00 97.7 F 06/11/20 23:27 93 L 06/11/20 20:00 94 L 06/11/20 19:00 97.9 F 06/11/20 18:29 92 L 06/11/20 18:27 92 L Weight Admit Weight 115.666 kg Weight 123.693 kg Most Recent Monitor Data Heart Rate from ECG 86 NIBP 125/63 NIBP BP-Mean 83 Respiration from ECG 20 SpO2 98 I&O: 06/10/20 06/11/20 06/12/20 06:59 06:59 06:59 Intake Total 1981.6 1073 787.4 Output Total 1600 3050 3105 Balance 381.6 -1977 -2317.6 Result Diagrams: 06/12/20 04:00 06/12/20 04:00 Phys Exam - Physical Examination Constitutional: NAD HEENT: PERRLA, moist MMs Neck: supple, full ROM Respiratory: no wheezing, no rales Cardiovascular: RRR, no significant murmur Gastrointestinal: soft, non-tender, no distention Musculoskeletal: pulses present 2+ pitting edema b/l hands Neurological: normal sensation, moves all 4 limbs Psychiatric: normal affect, A&O x 3 Skin: no rash Dx/Plan - Plan Plan: Encephalopathy 2/2 unknown source, resolved -06/11: patient can follow commands but is very lethargic and grunts to answer questions. Does not open eyes unless asked to do so and is barely able to follow that command -ASE protocol in place, will call to see if patient has substance abuse history -patient has also been increasingly agitated since NG tube was placed for feeds 2/2 his mental status. Pending speech consult -could be 2/2 dexamethasone TID, was discontinued 06/11 -patient's bicarb this morning on labs is normal, so am not thinking this is 2/2 hypercapnia -MRI brain cancelled by Dr Clark given patient's improvement clinically -neuro checks q4 H Acute hypoxic respiratory failure 2/2 suspected NSTEMI - BNP was elevated 526 on admission. CXR with increased interstitial markings and possible pulmonary edema - COVID/Flu negative - TSH, Lipid panel, A1C wnl - D-dimer was elevated. CTA ordered and no PE was found - Echo ordered and found EF of 55-60% - Strict I/O's, daily weights - satting well on 5L NC (06/11), will continue to weane as able -CPAP at night if needed; suspects he has a diagnosis of sleep apnea but has not been evaluated. However, he was doing fine in previous nights with just NC Indeterminate trop, NSTEMI - EKG without acute ST or T wave changes - Trop 0.037--0.2--0.349--0.303 - Consulted cardiology Dr. London,stress test +, Cath + - CABG 06/06/[address] Johnston, post op instructions appreciated Post Op CABG X4 - CABG complicated by recurrent bleeding with mediastinal exploration - Levophed pressure support stopped - amiodarone drip /2 A Fib likely 2/2 post op changes, d/c on 06/12 -Cards added Metoprolol 12.5mg BID (06/10), currently on 50mg BID - Cardiology, Pulmonology, CV surgery consulted - Post op fever-COVID -, on broad spectrum abx therapy Linezolid (06/08) and C efepime (06/07), continue to monitor. Will follow up with specialists to see if we can d/c Hypophosphatemia -other electrolytes WNL -Phos NAK scheduled BID -continue to monitor and replace as indicated CAD: has significant hx, on appropriate medications Anemia: noted on labs, likely chronic in nature HTN: controlled HLD: home meds DMII: A1C wnl, home meds CKD3a: aware, avoid nephrotoxins, patient seems to be at baseline H/o tob abuse: 30+ py smoking history, quit 11 years ago; abbe prn Code: Full Diet: pending speech recs VTE: held, DRISS zavala PCP: Harley Dispo: pending specialist recs, anticipate downgrade to tele today Addendum - Attending - Attending Attestation Date/Time: 06/12/20 1043 I personally evaluated the patient and discussed the management with Dr. Tobias I agree with the History, Examination, Assessment and Plan documented above with any addition or exceptions noted below. 64 yo male admitted for severe CAD complicated by acute hypoxic respiratory distress and NSTEMI CABG x4 with requiring exploration x2 due to persistent anatomosis bleeding on 06/06/20 Received 1 MTP (3 RBC, 2 FFP, 1 vaibhav plt). 2 uRBC on 06/09/20. Now on BiPAP. Hypoxic with agitation. Pulm following. Patient still with delirium and unknown cause. MRI canceled by pulm. No other known metabolic causes or infectious cause. Meds reviewed and now requiring presadex. No longer stable to be transfered to tele. Would d/c antibx or at least de-escalate. No evidence of infection at this time. Source unknown. uHnter
[2020-06-12] MEDS ORDERED: hydrOXYzine 25 MG TAB PO PRN (09:51)
[2020-06-12] MEDS: Famotidine 20 MG TAB PO SCH ×2 (10:10→21:05)
[2020-06-12] MEDS: Linezolid 600 MG TAB PO SCH ×2 (10:10→21:06)
[2020-06-12] MEDS: Aspirin 325 MG TAB PO SCH (10:10)
[2020-06-12] MEDS: PHOS-NAK 1 PKT PACK PO SCH ×2 (10:10→21:05)
[2020-06-12] MEDS: Metoprolol Tartrate 50 MG TAB PO SCH ×2 (10:10→21:05)
[2020-06-12] MEDS: Polyethylene Glycol 3350 17 GM Packet PO SCH (10:10)
[2020-06-12] MEDS: Furosemide 40 MG/4 ML VIAL SLOW IVP SCH ×2 (10:10→10:59)
[2020-06-12] MEDS: Cefepime 1 GM in Sodium Chloride 0.9% 100 ML IVPB SCH ×2 (10:11→22:01)
--- NOTE | 2020-06-12 10:21 | RAD ---
AP CHEST: Date: 06/12/2020 HISTORY: Postop CABG procedure. CCU follow-up. COMPARISON: 06/10/2020. FINDINGS/IMPRESSION: Postop sternotomy change. NG tube remains in place. Central line unchanged. Cardiomegaly. Diffuse vas cular and interstitial prominence seen bilaterally. This may represent diffuse interstitial edema. Th ere are patchy areas of confluent atelectasis or infiltrate in the lung bases, and evidence of small effusions. POS: AGW
[2020-06-12] MEDS ORDERED: Haloperidol Lactate 5 MG/ML VIAL IM PRN (10:42)
[2020-06-12] MEDS ORDERED: Furosemide 40 MG/4 ML VIAL SLOW IVP SCH (10:45)
[2020-06-12] MEDS ORDERED: Sodium Bicarbonate Tab 325 MG TAB PER TUBE PRN (14:15)
[2020-06-12] MEDS ORDERED: Pancrelipase DR 12,000 1 CAP FS PRN (14:15)
--- NOTE | 2020-06-12 17:02 | PRG ---
DATE OF SERVICE: 06/12/2020 OBJECTIVE: VITAL SIGNS: Guido Manuel's heart rate is 98, respiratory rates in the 30s, oximetry is 96, blood pressure is 107/88. LUNGS: Remarkable for equal breath sounds. HEART: Regular rhythm. ABDOMEN: Soft. Chest x-ray is unchanged. He has been on and off BiPAP today. He is still intermittently confused. LABORATORY DATA: White count 15.9, hemoglobin 9.4, platelets 255. Sodium 145, potassium 4.2, chloride 108, bicarb 26, BUN 23, creatinine 1.26. IMPRESSION: 1. Postoperative encephalopathy. 2. Recent coronary artery bypass grafting. 3. Obesity with clinical findings consistent with sleep apnea. PLAN: Continue supportive care. Continue intermittent BiPAP. Chest x-ray today with finding suggestive of pulmonary edema, so he is given Lasix this morning. He will remain in the critical care unit. Job ID: [id number]
[2020-06-12] MEDS: Rosuvastatin 20 MG TAB PO SCH (21:05)
[2020-06-12] MEDS: Insulin Regular 300 UNITS/3 ML VIAL SC PRN (21:23)
[2020-06-13 04:37] LABS: #Eosinphils 0.1 thou/uL (0.0-0.7); #Lymphocytes 1.3 thou/uL (1.20-3.40); #Monocytes 0.5 thou/uL (0.11-0.59); #Neutrophils 10.7 thou/uL (1.40-6.50); %Eosinophils 0.8 % (0.0-10.0); %Lymphocytes 10.1 % (21.0-51.0); %Monocytes 3.9 % (0.0-10.0); %Neutrophils 85.2 % (42.0-75.0); Hemoglobin 9.7 g/dL (14.0-18.0); Mean Corpuscular HGB CONC 34.1 g/dL (32.0-36.0); Mean Corpuscular Hemoglobin 32.6 pg (27.0-31.0); Mean Corpuscular Volume 95.8 fL (78.0-98.0); Mean Platelet Volume 8.1 fL (7.4-10.4); Platelet Count 198 thou/uL (130-400); RBC Distribution Width 15.1 % (11.5-14.5); Red Blood Cell (RBC) Count 2.97 mill/uL (4.70-6.10); White Blood Cell (WBC) Count 12.5 thou/uL (4.8-10.8)
[2020-06-13 04:59] LABS: Anion Gap 14 mmol/L (10-20); BUN (Urea Nitrogen) 28 mg/dL (8.4-25.7); Calc. Creatinine Clearance 93 mL/min (70-130); Calcium 9.2 mg/dL (7.8-10.44); Carbon Dioxide 29 mmol/L (23-31); Chloride 108 mmol/L (98-107); Glucose 157 mg/dL (80-115); Potassium 3.6 mmol/L (3.5-5.1); Sodium 147 mmol/L (136-145)
[2020-06-13] MEDS: Insulin Regular 300 UNITS/3 ML VIAL SC PRN ×2 (05:10→18:04)
--- NOTE | 2020-06-13 06:11 | PDOC.FM ---
- Subjective Subjective: Patient much more interactive today. Able to have a conversation. He has no complaints. On .3mcg/hr of Precedex still. On BiPAP I:E 13:7 at 35% FiO2. Patient's NG tube is still in place. Awaiting Speech consult. - Objective MAR Reviewed: Yes Vital Signs & Weight: Vital Signs (12 hours) Temp Pulse Resp Pulse Ox 06/13/20 04:00 97.9 F 06/13/20 00:38 80 25 H 100 06/13/20 00:37 100 06/13/20 00:00 97.7 F 06/12/20 20:00 98.8 F 100 06/12/20 19:04 96 25 H 98 06/12/20 19:02 98 Weight Admit Weight 115.666 kg Weight 122 kg Most Recent Monitor Data Heart Rate from ECG 84 NIBP 121/62 NIBP BP-Mean 81 Respiration from ECG 22 SpO2 100 I&O: 06/11/20 06/12/20 06/13/20 06:59 06:59 06:59 Intake Total 1073 787.4 1414.4 Output Total 3050 3105 2750 Balance -1976 -2317.6 -1335.6 Result Diagrams: 06/13/20 04:30 06/13/20 04:30 Phys Exam - Physical Examination Constitutional: NAD HEENT: moist MMs Neck: supple Respiratory: no wheezing, no rales Cardiovascular: RRR, no significant murmur Gastrointestinal: soft, non-tender Musculoskeletal: pulses present, edema present (2+ pitting edema of left hand) Neurological: moves all 4 limbs Psychiatric: normal affect, A&O x 3 Skin: normal turgor Dx/Plan - Plan Plan: Encephalopathy 2/2 unknown source, resolved -06/11: patient can follow commands but is very lethargic and grunts to answer questions. Does not open eyes unless asked to do so and is barely able to follow that command -ASE protocol in place, although denies history of substance use including alcohol -patient has also been increasingly agitated since NG tube was placed for feeds 2/2 his mental status. Pending speech consult -could be 2/2 dexamethasone TID, was discontinued 06/11 -patient's bicarb this morning on labs is normal, so am not thinking this is 2/2 hypercapnia -MRI brain cancelled by Dr Clark given patient's improvement clinically -neuro checks q4 H -patient was started on Precedex gtt 06/12 2/2 agitation and pulling at BiPAP, NG and trying to get out of bed Acute hypoxic respiratory failure 2/2 suspected NSTEMI - BNP was elevated 526 on admission. CXR with increased interstitial markings and possible pulmonary edema - COVID/Flu negative - TSH, Lipid panel, A1C wnl - D-dimer was elevated. CTA ordered and no PE was found - Echo ordered and found EF of 55-60% - Strict I/O's, daily weights - satting well on 5L NC (06/11), will continue to weane as able -CPAP at night if needed; suspects he has a diagnosis of sleep apnea but has not been evaluated. However, he was doing fine in previous nights with just NC -on BiPAP (06/12-06/13): work to step down to NC during the day if able Edema of Left Hand -2+ pitting edema, consider doppler of LUE Indeterminate trop, NSTEMI - EKG without acute ST or T wave changes - Trop 0.037--0.2--0.349--0.303 - Consulted cardiology Dr. London,stress test +, Cath + - CABG 06/06/[address] Johnston, post op instructions appreciated Post Op CABG X4 - CABG complicated by recurrent bleeding with mediastinal exploration - Levophed pressure support stopped - amiodarone drip /2 A Fib likely 2/2 post op changes, d/c on 06/12 - Cards added Metoprolol 12.5mg BID (06/10), currently on 50mg BID - Cardiology, Pulmonology, CV surgery consulted - Post op fever-COVID -, on broad spectrum abx therapy Linezolid (06/08) and Cefepime (06/07), continue to monitor. Will see specialist recs, from our point of view these can be d/c today as patient's cultures have come back negative Hypophosphatemia -other electrolytes WNL -Phos NAK scheduled BID -continue to monitor and replace as indicated CAD: has significant hx, on appropriate medications Anemia: noted on labs, likely chronic in nature HTN: controlled HLD: home meds DMII: A1C wnl, home meds CKD3a: aware, avoid nephrotoxins, patient seems to be at baseline H/o tob abuse: 30+ py smoking history, quit 11 years ago; duoneisai prn Code: Full Diet: pending speech recs VTE: DRISS osborn PCP: [facility] Dispo: pending specialist recs, anticipate downgrade to tele when off of BiPAP during the day Addendum - Attending - Attending Attestation Date/Time: 06/13/20 1023 I personally evaluated the patient and discussed the management with Dr. Tobias. I agree with the History, Examination, Assessment and Plan documented above with any addition or exceptions noted below. Patient now off Bipap, mentation slow but he is not agitated. Wean precedex as able. [employer] to screen to start diet. Continue mgmt of his CAD and CHF by CV surgery and cardiology. Anticipate he is nearing euvolemia given bump in creatinine. Replete electrolytes. Further mgmt pending Pulm and CV surgery.
--- NOTE | 2020-06-13 08:57 | RAD ---
CHEST 1 VIEW: INDICATION: History of pulmonary edema and CABG. COMPARISON: Prior exam dated June 12, 2020. FINDINGS: Post coronary artery bypass graft change, cardiomegaly, right subclavian central venous catheter, and ET tube tip are unchanged. No pneumothorax is evident. Mild pulmonary vascular congestion remains. Tiny bilateral pleural effusions persist. IMPRESSION: Stable exam. POS: BH
[2020-06-13] MEDS: Aspirin 325 MG TAB PO SCH (09:30)
[2020-06-13] MEDS: Famotidine 20 MG TAB PO SCH ×2 (09:31→19:58)
[2020-06-13] MEDS: Furosemide 40 MG/4 ML VIAL SLOW IVP SCH (09:31)
[2020-06-13] MEDS: Linezolid 600 MG TAB PO SCH ×2 (09:32→19:59)
[2020-06-13] MEDS: Metoprolol Tartrate 50 MG TAB PO SCH ×2 (09:32→19:58)
[2020-06-13] MEDS: PHOS-NAK 1 PKT PACK PO SCH ×2 (09:33→19:59)
[2020-06-13] MEDS: Polyethylene Glycol 3350 17 GM Packet PO SCH (09:33)
[2020-06-13] MEDS: Cefepime 1 GM in Sodium Chloride 0.9% 100 ML IVPB SCH ×2 (09:33→22:46)
--- NOTE | 2020-06-13 09:33 | PRG ---
DATE OF SERVICE: 06/13/2020 SUBJECTIVE: A 64-year-old gentleman, post extubation, is still somewhat confused, but better. He was on BiPAP overnight. He has sleep apnea as per his . OBJECTIVE: VITAL SIGNS: Pulse is 80, temperature 98, blood pressure 100/60, respiratory rate 18. His I's and O's have been good. CHEST: No wheezing, no crackles. CARDIAC: Normal S1, normal S2. ASSESSMENT: Respiratory failure, renal failure, metabolic encephalopathy. Leukocytosis, severe deconditioning, sleep apnea. PLAN: He looks somewhat better today. We are going to decrease sedation, probably discontinue Demadex. Continue nocturnal BiPAP. Aggressive PT, antibiotics. We may consider watching him in the ICU for another 24 hours. One-half hour of critical care time. Job ID: [id number]
[2020-06-13] MEDS ORDERED: Potassium Phosphate 15 MMOL in Sodium Chloride 0.9% 250 ML 250 ML IVPB SCH (10:15)
--- NOTE | 2020-06-13 10:39 | ULT ---
ULTRASOUND DOPPLER DUPLEX VENOUS LEFT UPPER EXTREMITY: DATE: 06/13/2020 HISTORY: 64-year-old male with pitting edema of left hand TECHNIQUE: Grayscale, color-flow, and spectral analysis, of the left internal jugular, subclavian, axillary, bra chial, basilic, cephalic, radial, and ulnar, veins. Compression and release applied to all veins except the subclavian. FINDINGS: There is thrombosis of the left basilic vein in the proximal forearm, just distal to the antecubital fossa, with incomplete compressibility and diminished flow. There is no thrombosis of any of the other veins. IMPRESSION: Positive for nonocclusive thrombosis of the left basilic vein of the forearm
[2020-06-13 10:52] LABS: Phosphorus 2.2 mg/dL (2.3-4.7)
--- NOTE | 2020-06-13 14:09 | PRG ---
DATE OF SERVICE: 06/13/2020 SUBJECTIVE: Mr. Manuel was extubated over the weekend. His is present. She states he is more awake today than he has been. He is confused. No specific complaints. He is off pressors. He is only on Precedex and normal saline. PHYSICAL EXAMINATION: VITAL SIGNS: Blood pressure 108/60, pulse 74, temperature afebrile. LUNGS: Clear to auscultation. HEART: Regular rate and rhythm. ABDOMEN: Soft, nontender, nondistended. EXTREMITIES: 1+ pitting edema. PERTINENT LABORATORY DATA: Hemoglobin 9.7. Creatinine 1.36. IMPRESSION: 1. Delirium. 2. Coronary artery disease. 3. Status post bypass surgery. 4. Postop atrial fibrillation. RECOMMENDATIONS: Delirium likely related to recent condition. It has been noted over the last several days. At this point, continue low-dose Lasix. We will continue metoprolol in addition to a statin therapy and aspirin. Job ID: [id number]
[2020-06-13] MEDS: Rosuvastatin 20 MG TAB PO SCH (19:58)
[2020-06-13] MEDS: Enoxaparin Sodium 40 MG/0.4 ML SYRINGE SC SCH (19:59)
[2020-06-14 04:56] LABS: #Eosinphils 0.9 thou/uL (0.0-0.7); #Lymphocytes 1.4 thou/uL (1.20-3.40); #Monocytes 0.4 thou/uL (0.11-0.59); #Neutrophils 8.9 thou/uL (1.40-6.50); %Basophils 0.1 % (0.0-1.0); %Eosinophils 8.1 % (0.0-10.0); %Lymphocytes 11.9 % (21.0-51.0); %Monocytes 3.6 % (0.0-10.0); %Neutrophils 76.3 % (42.0-75.0); Hemoglobin 9.5 g/dL (14.0-18.0); Mean Corpuscular HGB CONC 32.4 g/dL (32.0-36.0); Mean Corpuscular Hemoglobin 31.2 pg (27.0-31.0); Mean Corpuscular Volume 96.2 fL (78.0-98.0); Mean Platelet Volume 8.1 fL (7.4-10.4); Platelet Count 184 thou/uL (130-400); RBC Distribution Width 14.8 % (11.5-14.5); Red Blood Cell (RBC) Count 3.03 mill/uL (4.70-6.10); White Blood Cell (WBC) Count 11.7 thou/uL (4.8-10.8)
[2020-06-14 05:17] LABS: Anion Gap 11 mmol/L (10-20); BUN (Urea Nitrogen) 26 mg/dL (8.4-25.7); Calc. Creatinine Clearance 123 mL/min (70-130); Calcium 8.9 mg/dL (7.8-10.44); Carbon Dioxide 28 mmol/L (23-31); Chloride 106 mmol/L (98-107); Glucose 105 mg/dL (80-115); Potassium 3.3 mmol/L (3.5-5.1); Sodium 142 mmol/L (136-145)
[2020-06-14 05:19] LABS: Magnesium 1.8 mg/dL (1.6-2.6); Phosphorus 2.8 mg/dL (2.3-4.7)
--- NOTE | 2020-06-14 06:04 | PDOC.FM ---
- Subjective Subjective: Patient doing well this morning. Off of O2 and Precedex. No acute complaints. Able to converse and is A&Ox3. Tolerating PO. - Objective MAR Reviewed: Yes Vital Signs & Weight: Vital Signs (12 hours) Temp Pulse Resp Pulse Ox 06/14/20 02:20 80 27 H 97 06/14/20 00:00 98.9 F 06/13/20 21:00 82 16 100 06/13/20 20:00 99.5 F 94 L 06/13/20 18:32 85 23 H 93 L Weight Admit Weight 115.666 kg Weight 70.488 kg Most Recent Monitor Data Heart Rate from ECG 77 NIBP 140/71 NIBP BP-Mean 94 Respiration from ECG 26 SpO2 97 I&O: 06/12/20 06/13/20 06/14/20 06:59 06:59 06:59 Intake Total 787.4 1414.4 1200 Output Total 3105 2775 2336 Balance -2317.6 -1360.6 -1136 Result Diagrams: 06/14/20 04:34 06/14/20 04:34 Phys Exam - Physical Examination Constitutional: NAD HEENT: moist MMs Neck: no JVD Respiratory: no wheezing, no rales Cardiovascular: RRR, no significant murmur Gastrointestinal: soft, non-tender Musculoskeletal: no edema, pulses present Neurological: non-focal, normal sensation, moves all 4 limbs Psychiatric: normal affect, A&O x 3 Dx/Plan - Plan Plan: Encephalopathy 2/2 unknown source, resolved -06/11: patient can follow commands but is very lethargic and grunts to answer questions. Does not open eyes unless asked to do so and is barely able to follow that command -ASE protocol in place, although denies history of substance use including alcohol -patient has also been increasingly agitated since NG tube was placed for feeds 2/2 his mental status. Pending speech consult -could be 2/2 dexamethasone TID, was discontinued 06/11 -patient's bicarb this morning on labs is normal, so am not thinking this is 2/2 hypercapnia -MRI brain cancelled by Dr Clark given patient's improvement clinically -neuro checks q4 H -patient was started on Precedex gtt 06/12 2/2 agitation and pulling at BiPAP, NG and trying to get out of bed -06/13 Precedex d/c Acute hypoxic respiratory failure 2/2 suspected NSTEMI - BNP was elevated 526 on admission. CXR with increased interstitial markings and possible pulmonary edema - COVID/Flu negative - TSH, Lipid panel, A1C wnl - D-dimer was elevated. CTA ordered and no PE was found - Echo ordered and found EF of 55-60% - Strict I/O's, daily weights - satting well on 5L NC (06/11), will continue to weane as able -CPAP at night if needed; suspects he has a diagnosis of sleep apnea but has not been evaluated. However, he was doing fine in previous nights with just NC -on BiPAP (06/12-06/13): work to step down to NC during the day if able -06/14: on RA, satting well Edema of Left Hand -2+ pitting edema -Doppler U/s showed basilic vein thrombosis, non occlusive -started on Lovenox 40 BID 06/13 as per CV surg Indeterminate trop, NSTEMI - EKG without acute ST or T wave changes - Trop 0.037--0.2--0.349--0.303 - Consulted cardiology Dr. London,stress test +, Cath + - CABG 06/06/[address] Johnston, post op instructions appreciated Post Op CABG X4 - CABG complicated by recurrent bleeding with mediastinal exploration - Levophed pressure support stopped - amiodarone drip /2 A Fib likely 2/2 post op changes, d/c on 06/12 - Cards added Metoprolol 12.5mg BID (06/10), currently on 50mg BID - Cardiology, Pulmonology, CV surgery consulted - Post op fever-COVID -, on broad spectrum abx therapy Linezolid (06/08) and Cefepime (06/07), continue to monitor. Will see specialist recs, from our point of view these can be d/c today as patient's cultures have come back negative Hypophosphatemia -other electrolytes WNL -Phos NAK scheduled BID -continue to monitor and replace as indicated CAD: has significant hx, on appropriate medications Anemia: noted on labs, likely chronic in nature HTN: controlled HLD: home meds DMII: A1C wnl, home meds CKD3a: aware, avoid nephrotoxins, patient seems to be at baseline H/o tob abuse: 30+ py smoking history, quit 11 years ago; abbe prn Code: Full Diet: nectar and ground HH VTE: Lovenox 40 BID PCP: [facility] Dispo: pending specialist recs, anticipate downgrade to tele as patient been stable for 24 hours Addendum - Attending - Attending Attestation Date/Time: 06/14/20 7669 I personally evaluated the patient and discussed the management with Dr. Tobias. I agree with the History, Examination, Assessment and Plan documented above with any addition or exceptions noted below. Patient doing well. Moved from CCU this morning. His reports mentation still not at baseline, but drastically improved over the last few days. Suspect this is post-op and CCU delirium that will continue to resolve. Work with PT. Further mgmt pending CV surgery and Cardiology recs.
[2020-06-14] MEDS ORDERED: Potassium Phosphate 15 MMOL in Sodium Chloride 0.9% 250 ML 250 ML IVPB SCH (06:30)
--- NOTE | 2020-06-14 08:27 | PRG ---
DATE OF SERVICE: The patient is afebrile with stable vital signs. He is up in the chair today, and his speech is back to baseline. Motor function is intact in both arms. Lungs are clear. His chest dressing is the same as yesterday and there are a couple of spotted areas and this will be changed this morning. Lungs are clear to auscultation anteriorly. Laboratory values; his hemoglobin is stable. His white count is slightly elevated at 11,000. Potassium is 3.3 and his creatinine is down to 1.02 and his BUN is 26. Sugars have been variable. At this time, we will transfer him to the floor, begin more vigorous cardiac rehab with more frequent walking if possible. He needs some wound care, probably a shower if he progresses in home in the next couple of days and if not, then consider rehab stent. Job ID: [id number]
[2020-06-14] MEDS: Famotidine 20 MG TAB PO SCH ×2 (08:57→21:36)
[2020-06-14] MEDS: Enoxaparin Sodium 40 MG/0.4 ML SYRINGE SC SCH ×2 (08:57→21:35)
[2020-06-14] MEDS: Aspirin 325 MG TAB PO SCH (08:57)
[2020-06-14] MEDS: Furosemide 40 MG/4 ML VIAL SLOW IVP SCH (08:57)
[2020-06-14] MEDS: Linezolid 600 MG TAB PO SCH (08:57)
[2020-06-14] MEDS: PHOS-NAK 1 PKT PACK PO SCH ×2 (08:58→21:36)
[2020-06-14] MEDS: Polyethylene Glycol 3350 17 GM Packet PO SCH (08:58)
[2020-06-14] MEDS: Metoprolol Tartrate 50 MG TAB PO SCH ×2 (08:58→21:36)
[2020-06-14] MEDS ORDERED: Mineral Oil ENEMA PR PRN (09:36)
[2020-06-14] MEDS ORDERED: Bisacodyl 10 MG SUPP PR PRN (09:36)
[2020-06-14] MEDS ORDERED: Bisacodyl 5 MG TAB PO PRN (09:36)
[2020-06-14] MEDS ORDERED: Nitroglycerin 0.4 MG TAB (25 Tab Bottle) SL PRN (09:36)
[2020-06-14] MEDS ORDERED: Mag-Al 1200 mg/1200 mg/30 ML UDCUP PO PRN (09:36)
[2020-06-14] MEDS ORDERED: Guaifenesin DM 100-10/5 ML UDCUP PO PRN (09:36)
[2020-06-14] MEDS ORDERED: Insulin Regular 300 UNITS/3 ML VIAL SC PRN (10:30)
[2020-06-14] MEDS ORDERED: Dextrose 5% in Water 1,000 ML IV PRN (10:30)
[2020-06-14] MEDS ORDERED: Dextrose 50% Abboject 50 ML SYRINGE SLOW IVP PRN (10:30)
[2020-06-14] MEDS ORDERED: Pioglitazone HCl 15 MG TAB PO SCH (10:30)
[2020-06-14] MEDS: Cefepime 1 GM in Sodium Chloride 0.9% 100 ML IVPB SCH (11:15)
--- NOTE | 2020-06-14 11:28 | PRG ---
DATE OF SERVICE: 06/14/2020 SUBJECTIVE: He was transferred to the ICU. He is doing better, still remains encephalopathic. OBJECTIVE: VITAL SIGNS: His saturations are 95% on 2 L, respiratory rate 16, temperature 98, blood pressure 121/64. CHEST: Rhonchi and crackles. No wheezing. CARDIAC: Normal S1 and normal S2. No gallops. ABDOMEN: No masses. LABORATORY DATA: Unremarkable. IMPRESSION: Respiratory failure, status post artery bypass grafting, encephalopathy, sleep apnea. PLAN: He is improved. Continue PT and supportive care. Outpatient sleep study. Job ID: [id number]
--- NOTE | 2020-06-14 15:17 | PRG ---
DATE OF SERVICE: 06/14/2020 SUBJECTIVE: Mr. Manuel is much better today. He is more lucid. He is alert, oriented to time, person, and place. No current complaints. OBJECTIVE: VITAL SIGNS: Blood pressure 126/66, pulse 92, and temperature 97.7. LUNGS: Crackles noted bilaterally. HEART: Regular rate and rhythm. ABDOMEN: Soft, nontender, and nondistended. EXTREMITIES: 2+ pitting edema. PERTINENT LABORATORY DATA: Hemoglobin 9.5. IMPRESSION: 1. Coronary artery disease. 2. Status post bypass surgery. 3. Metabolic encephalopathy. RECOMMENDATIONS: Mr. Manuel appears to be improving. He has had episodes of paroxysmal atrial fibrillation. We will need to watch closely. Continue beta-renny therapy, statin, and aspirin. The patient will be transferred to telemetry monitoring. Job ID: [id number]
[2020-06-14] MEDS: Rosuvastatin 20 MG TAB PO SCH (21:36)
[2020-06-14] MEDS: Melatonin 3 MG TAB PO PRN (22:43)
[2020-06-15 05:43] LABS: ALT (SGPT) 23 U/L (8-55); AST (SGOT) 39 U/L (5-34); Albumin 2.8 g/dL (3.4-4.8); Alkaline Phosphatase 54 U/L (40-110); Anion Gap 16 mmol/L (10-20); BUN (Urea Nitrogen) 25 mg/dL (8.4-25.7); Bilirubin, Total 1.4 mg/dL (0.2-1.2); Calc. Creatinine Clearance 80 mL/min (70-130); Calcium 8.1 mg/dL (7.8-10.44); Carbon Dioxide 22 mmol/L (23-31); Chloride 105 mmol/L (98-107); Globulin 2.5 g/dL (2.4-3.5); Glucose 101 mg/dL (80-115); Magnesium 1.8 mg/dL (1.6-2.6); Phosphorus 2.6 mg/dL (2.3-4.7); Potassium 3.6 mmol/L (3.5-5.1); Protein, Total 5.3 g/dL (5.8-8.1); Sodium 139 mmol/L (136-145)
[2020-06-15 06:04] LABS: Hemoglobin 9.9 g/dL (14.0-18.0); Mean Corpuscular HGB CONC 33.4 g/dL (32.0-36.0); Mean Corpuscular Hemoglobin 32.3 pg (27.0-31.0); Mean Corpuscular Volume 96.6 fL (78.0-98.0); Mean Platelet Volume 8.7 fL (7.4-10.4); Platelet Count 149 thou/uL (130-400); RBC Distribution Width 14.7 % (11.5-14.5); Red Blood Cell (RBC) Count 3.05 mill/uL (4.70-6.10)
--- NOTE | 2020-06-15 06:28 | PDOC.FM ---
- Subjective Subjective: Patient resting comfortably in bed this AM on RA. No acute complaints. Encouraged him to get up to chair today and continue working with PT - Objective MAR Reviewed: Yes Vital Signs & Weight: Vital Signs (12 hours) Temp Pulse Resp BP BP Pulse Ox 06/15/20 04:00 97.8 F 77 21 H 148/68 H 95 06/14/20 20:00 98.1 F 88 125/65 99 06/14/20 19:36 99 Weight Admit Weight 115.666 kg Weight 70.307 kg Most Recent Monitor Data Heart Rate from ECG 106 NIBP 133/78 NIBP BP-Mean 96 Respiration from ECG 18 SpO2 81 I&O: 06/13/20 06/14/20 06/15/20 06:59 06:59 06:59 Intake Total 1414.4 1200 750 Output Total 2775 2376 1300 Balance -1360.6 -1176 -550 Result Diagrams: 06/15/20 04:14 06/15/20 04:14 Phys Exam - Physical Examination Constitutional: NAD Neck: no JVD Respiratory: no wheezing Cardiovascular: RRR, no significant murmur Gastrointestinal: soft, non-tender, positive bowel sounds Musculoskeletal: no edema, pulses present Neurological: non-focal, normal sensation, moves all 4 limbs Dx/Plan - Plan Plan: Acute hypoxic respiratory failure 2/2 suspected NSTEMI - BNP was elevated 526 on admission. CXR with increased interstitial markings and possible pulmonary edema - COVID/Flu negative - TSH, Lipid panel, A1C wnl - D-dimer was elevated. CTA ordered and no PE was found - Echo ordered and found EF of 55-60% - Strict I/O's, daily weights - satting well on 5L NC (06/11), will continue to weane as able -CPAP at night if needed; suspects he has a diagnosis of sleep apnea but has not been evaluated. However, he was doing fine in previous nights with just NC -on BiPAP (06/12-06/13): work to step down to NC during the day if able -06/14: on RA, satting well -06/15 satting well on RA Afib -patient with rate controlled Afib -Cardiology aware -on Lovenox BID -will database specialist recs Edema of Left Hand, resolved -2+ pitting edema -Doppler U/s showed basilic vein thrombosis, non occlusive -started on Lovenox 40 BID 06/13 as per CV surg -Anti Xa level showed that patient was not therapeutic. Will follow up with CV surgery and cards Indeterminate trop, NSTEMI - EKG without acute ST or T wave changes - Trop 0.037--0.2--0.349--0.303 - Consulted cardiology Dr. London,stress test +, Cath + - CABG 06/06/[address] Johnston, post op instructions appreciated Post Op CABG X4 - CABG complicated by recurrent bleeding with mediastinal exploration - Levophed pressure support stopped - amiodarone drip 07/05 A Fib likely 2/2 post op changes, d/c on 06/12 - Cards added Metoprolol 12.5mg BID (06/10), currently on 50mg BID - Cardiology, Pulmonology, CV surgery consulted - Post op fever-COVID -, on broad spectrum abx therapy Linezolid (06/08) and C efepime (06/07), d/c on 06/14 Encephalopathy 2/2 unknown source, improved -06/11: patient can follow commands but is very lethargic and grunts to answer questions. Does not open eyes unless asked to do so and is barely able to follow that command -ASE protocol in place, although denies history of substance use including alcohol -patient has also been increasingly agitated since NG tube was placed for feeds 2/2 his mental status. Pending speech consult -could be 2/2 dexamethasone TID, was discontinued 06/11 -patient's bicarb this morning on labs is normal, so am not thinking this is 2/2 hypercapnia -MRI brain cancelled by Dr Clark given patient's improvement clinically -neuro checks q4 H -patient was started on Precedex gtt 06/12 2/2 agitation and pulling at BiPAP, NG and trying to get out of bed -06/13 Precedex d/c -still not at baseline as per . Will revisit this afternoon and do a full neuro exam. Consider brain MRI Hypophosphatemia -other electrolytes WNL -Phos NAK scheduled BID -continue to monitor and replace as indicated CAD: has significant hx, on appropriate medications Anemia: noted on labs, likely chronic in nature HTN: controlled HLD: home meds DMII: A1C wnl, home meds CKD3a: aware, avoid nephrotoxins, patient seems to be at baseline H/o tob abuse: 30+ py smoking history, quit 11 years ago; abbe prn Code: Full Diet: nectar and ground HH VTE: Lovenox 40 BID PCP: [facility] Dispo: pending specialist recs. PT/OT. Needs to ambulate Addendum - Attending - Attending Attestation Date/Time: 06/15/20 1116 I personally evaluated the patient and discussed the management with Dr. Tobias. I agree with the History, Examination, Assessment and Plan documented above with any addition or exceptions noted below.
[2020-06-15] MEDS ORDERED: Potassium Phosphate 15 MMOL in Sodium Chloride 0.9% 250 ML 250 ML IVPB SCH (07:15)
[2020-06-15] MEDS ORDERED: Potassium Chloride 10 MEQ TAB PO SCH (08:00)
--- NOTE | 2020-06-15 08:21 | RAD ---
EXAM: CHEST ONE VIEW HISTORY: CHF. COMPARISON: 04/22/2020 FINDINGS: Right subclavian central venous catheter remains in place. Nasogastric tube has been removed. Median sternotomy wires are again seen. Cardiac silhouette is magnified by projection. No consolidation or pleural fluid is seen. Mild increase in interstitial densities is present on prior study which appear s improved on today's exam. No other interval change. IMPRESSION: Improvement in interstitial densities. Lungs appear clear on today's exam.
[2020-06-15] MEDS ORDERED: Pioglitazone HCl 15 MG TAB PO SCH (09:00)
[2020-06-15] MEDS: Enoxaparin Sodium 40 MG/0.4 ML SYRINGE SC SCH ×2 (09:15→22:10)
[2020-06-15] MEDS: Metoprolol Tartrate 50 MG TAB PO SCH ×2 (09:15→22:12)
[2020-06-15] MEDS: PHOS-NAK 1 PKT PACK PO SCH ×2 (09:16→22:10)
[2020-06-15] MEDS: Famotidine 20 MG TAB PO SCH ×2 (09:16→22:11)
[2020-06-15] MEDS: Aspirin 325 mg Enteric Coated Tablet PO SCH (09:16)
[2020-06-15] MEDS: Furosemide 40 MG/4 ML VIAL SLOW IVP SCH (09:16)
--- NOTE | 2020-06-15 10:28 | PRG ---
DATE OF SERVICE: 06/15/2020 The patient's vital signs have been stable. Blood pressure and heart rate with sinus rhythm. His I's and O's continue to be output greater than input and his weight documentation is probably inaccurate at 155 pounds compared to 264. LABORATORY VALUES: His white count remained slightly elevated at 12,000. Creatinine is less than 1. Currently, his BUN is slightly elevated at 25. ASSESSMENT AND PLAN: He received some additional potassium today. He is back to baseline in mental status. I changed his dressing this morning on his chest and his chest incision looks fine. Although, there was some drainage underneath the dressing, the dressing had been placed several days earlier and so it does not clarify whether there is any current drainage. He has minimal to trace edema of his lower extremities in bed this morning. His antibiotics were stopped and he is able to ambulate and this needs to be our focus. He admits to minimal ambulation prior to admission due to chronic back problems. If he is able to ambulate independently, we can consider discharge home, otherwise rehab may be an option if he does not progress in the next day or so. Job ID: [id number]
--- NOTE | 2020-06-15 11:12 | PRG ---
DATE OF SERVICE: 06/15/2020 OBJECTIVE: VITAL SIGNS: This morning his temperature is 99.0, pulse 86, respirations 20, saturations 95% on room air, blood pressure 114/60. He is still encephalopathic, but no shortness of breath. CHEST: No wheezing. No crackles. CARDIAC: Normal S1 and S2. ABDOMEN: No masses. IMPRESSION: Respiratory failure, status post coronary artery bypass graft, encephalopathy. PLAN: Antibiotics have been discontinued. I would continue aggressive PT. He needs to still sleep on BiPAP at nighttime until he gets an outpatient sleep study. Job ID: [id number]
--- NOTE | 2020-06-15 14:28 | MRI ---
MRI BRAIN WITHOUT CONTRAST: HISTORY: Encephalopathy, abnormal neural exam. FINDINGS: There is a small focal area of restricted diffusion paramedian aspect of the left centrum semiovale. No transcortical infarct, hemorrhage, midline shift, or abnormal extraaxial fluid collections are se en. The ventricular size is appropriate and the basilar cisterns are patent. There is fluid in the mastoid air cells bilaterally. IMPRESSION: Recent lacunar infarction in the left centrum semiovale. POS: OFF
[2020-06-15 14:43] VITALS: BMI 23.6
[2020-06-15] MEDS: metFORMIN 500 MG TAB PO SCH (17:59)
[2020-06-15] MEDS: Acetaminophen 325 MG TAB PO PRN (22:11)
[2020-06-15] MEDS: Melatonin 3 MG TAB PO PRN (22:11)
[2020-06-15] MEDS: Rosuvastatin 20 MG TAB PO SCH (22:11)
[2020-06-16 05:13] LABS: Hemoglobin 10.2 g/dL (14.0-18.0); Mean Corpuscular HGB CONC 33.8 g/dL (32.0-36.0); Mean Corpuscular Hemoglobin 32.3 pg (27.0-31.0); Mean Corpuscular Volume 95.6 fL (78.0-98.0); Mean Platelet Volume 8.9 fL (7.4-10.4); Platelet Count 135 thou/uL (130-400); RBC Distribution Width 14.5 % (11.5-14.5); Red Blood Cell (RBC) Count 3.14 mill/uL (4.70-6.10); White Blood Cell (WBC) Count 10.9 thou/uL (4.8-10.8)
[2020-06-16 05:30] LABS: Phosphorus 2.7 mg/dL (2.3-4.7)
[2020-06-16 05:32] LABS: ALT (SGPT) 19 U/L (8-55); AST (SGOT) 26 U/L (5-34); Albumin 2.7 g/dL (3.4-4.8); Alkaline Phosphatase 62 U/L (40-110); Anion Gap 14 mmol/L (10-20); BUN (Urea Nitrogen) 19 mg/dL (8.4-25.7); Bilirubin, Total 1.3 mg/dL (0.2-1.2); Calc. Creatinine Clearance 84 mL/min (70-130); Calcium 8.1 mg/dL (7.8-10.44); Carbon Dioxide 23 mmol/L (23-31); Chloride 103 mmol/L (98-107); Globulin 2.4 g/dL (2.4-3.5); Glucose 98 mg/dL (80-115); Magnesium 1.9 mg/dL (1.6-2.6); Potassium 3.2 mmol/L (3.5-5.1); Protein, Total 5.1 g/dL (5.8-8.1); Sodium 137 mmol/L (136-145)
[2020-06-16] MEDS ORDERED: Potassium Chloride 20 MEQ TAB PO SCH (07:15)
[2020-06-16] MEDS ORDERED: Furosemide 40 MG TAB PO SCH (07:30)
[2020-06-16] MEDS ORDERED: Potassium Chloride 10 MEQ TAB PO SCH ×2 (08:00)
[2020-06-16 08:21] VITALS: TEMP 98.1
[2020-06-16] MEDS: Enoxaparin Sodium 40 MG/0.4 ML SYRINGE SC SCH (08:31)
[2020-06-16] MEDS: Famotidine 20 MG TAB PO SCH (08:31)
[2020-06-16] MEDS: PHOS-NAK 1 PKT PACK PO SCH (08:31)
[2020-06-16] MEDS: metFORMIN 500 MG TAB PO SCH (08:31)
[2020-06-16] MEDS: Metoprolol Tartrate 50 MG TAB PO SCH (08:31)
[2020-06-16] MEDS: Aspirin 325 mg Enteric Coated Tablet PO SCH (08:31)
[2020-06-16] MEDS ORDERED: Aluminum & Magnesium Hydroxide 60 ML, Lidocaine 2% Viscous Solution 30 ML, diphenhydrAM... SSW PRN (09:07)
--- NOTE | 2020-06-16 09:13 | PDOC.FM ---
- Subjective Subjective: Patient doing well this morning. MRI yesterday showed recent lacunar infarct. No focal neuro deficits. Patient with no complaints and wants to go home - Objective MAR Reviewed: Yes Vital Signs & Weight: Vital Signs (12 hours) Temp Pulse Resp BP Pulse Ox 06/16/20 08:21 98.1 F 91 18 135/58 L 96 06/16/20 04:00 98 F 77 18 113/61 94 L Weight Admit Weight 122.47 kg Weight 70.67 kg Most Recent Monitor Data Heart Rate from ECG 106 NIBP 133/78 NIBP BP-Mean 96 Respiration from ECG 18 SpO2 81 I&O: 06/15/20 06/16/20 06/17/20 06:59 06:59 06:59 Intake Total 1230 900 Output Total 1800 975 Balance -570 -75 Result Diagrams: 06/16/20 04:34 06/16/20 04:34 Phys Exam - Physical Examination Constitutional: NAD HEENT: moist MMs multiple lesions that look like aphthous ulcers on tongue Respiratory: no wheezing Cardiovascular: RRR, no significant murmur Gastrointestinal: soft Musculoskeletal: edema present 1+ pitting edema b/l LE Neurological: non-focal, normal sensation, moves all 4 limbs Psychiatric: normal affect, A&O x 3 Dx/Plan - Plan Plan: Acute hypoxic respiratory failure 2/2 suspected NSTEMI - BNP was elevated 526 on admission. CXR with increased interstitial markings and possible pulmonary edema - COVID/Flu negative - TSH, Lipid panel, A1C wnl - D-dimer was elevated. CTA ordered and no PE was found - Echo ordered and found EF of 55-60% - Strict I/O's, daily weights - satting well on 5L NC (06/11), will continue to weane as able -CPAP at night if needed; suspects he has a diagnosis of sleep apnea but has not been evaluated. However, he was doing fine in previous nights with just NC -on BiPAP (06/12-06/13): work to step down to NC during the day if able -06/14: on RA, satting well -06/15- satting well on RA Afib -patient with rate controlled Afib -Cardiology aware -on Lovenox BID -will prepress specialist recs Edema of Left Hand, resolved -2+ pitting edema -Doppler U/s showed basilic vein thrombosis, non occlusive -started on Lovenox 40 BID 06/13 as per CV surg -Anti Xa level showed that patient was not therapeutic. Will follow up with CV surgery and cards Indeterminate trop, NSTEMI - EKG without acute ST or T wave changes - Trop 0.037--0.2--0.349--0.303 - Consulted cardiology Dr. London,stress test +, Cath + - CABG 06/06/[address] Johnston, post op instructions appreciated Post Op CABG X4 - CABG complicated by recurrent bleeding with mediastinal exploration - Levophed pressure support stopped - amiodarone drip /2 A Fib likely 2/2 post op changes, d/c on 06/12 - Cards added Metoprolol 12.5mg BID (06/10), currently on 50mg BID - Cardiology, Pulmonology, CV surgery consulted - Post op fever-COVID -, on broad spectrum abx therapy Linezolid (06/08) and Cefepime (06/07), d/c on 06/14 Encephalopathy 2/2 unknown source, improved -06/11: patient can follow commands but is very lethargic and grunts to answer questions. Does not open eyes unless asked to do so and is barely able to follow that command -ASE protocol in place, although denies history of substance use including alcohol -patient has also been increasingly agitated since NG tube was placed for feeds 2/2 his mental status. Pending speech consult -could be 2/2 dexamethasone TID, was discontinued 06/11 -patient's bicarb this morning on labs is normal, so am not thinking this is 2/2 hypercapnia -MRI brain cancelled by Dr Clark given patient's improvement clinically -neuro checks q4 H -patient was started on Precedex gtt 06/12 2/2 agitation and pulling at BiPAP, NG and trying to get out of bed -06/13 Precedex d/c -still not at baseline as per . Will revisit this afternoon and do a full neuro exam. Consider brain MRI -06/16: Neuro exam showed inability for 3 word recall and instability on feet un able to walk or stand still upright without leaning to side. MRI showed recent lacunar infarct. Patient already on ASA, will maximize statin therapy. -PT/OT Hypophosphatemia -other electrolytes WNL -Phos NAK scheduled BID -continue to monitor and replace as indicated CAD: has significant hx, on appropriate medications Anemia: noted on labs, likely chronic in nature HTN: controlled HLD: home meds DMII: A1C wnl, home med Actos d/c and started on Metformin 500 mg BID CKD3a: aware, avoid nephrotoxins, patient seems to be at baseline H/o tob abuse: 30+ py smoking history, quit 11 years ago; abbe prn Code: Full Diet: nectar and ground HH VTE: Lovenox 40 BID PCP: [facility] Dispo: pending specialist recs. PT/OT. Needs to ambulate Addendum - Attending - Attending Attestation Date/Time: 06/16/20 1123 I personally evaluated the patient and discussed the management with Dr. Tobias. I agree with the History, Examination, Assessment and Plan documented above with any addition or exceptions noted below.
--- NOTE | 2020-06-16 09:49 | PRG ---
DATE OF SERVICE: 06/16/2020 SUBJECTIVE: Mr. Manuel continues to slowly improve. He has no current complaints. He has had low oxygen levels. This mainly occurs with ambulation. OBJECTIVE: VITAL SIGNS: Blood pressure 135/58, pulse 91, temperature 98.1. LUNGS: Clear to auscultation. HEART: Regular rate and rhythm. ABDOMEN: Soft, nontender, nondistended. EXTREMITIES: No edema. PERTINENT LABORATORY DATA: Hemoglobin 10.2, hematocrit 30.1. Creatinine 0.86, albumin 2.7. IMPRESSION: 1. Coronary artery disease. 2. Status post bypass surgery. 3. Status post stent placement. 4. Postoperative atrial fibrillation. RECOMMENDATION: Mr. Manuel appears stable. We will continue current medical therapy. He may be a candidate for rehab. We will continue aspirin in addition to metoprolol and Crestor. Job ID: [id number]
[2020-06-16 11:30] VITALS: BP 137/81
--- NOTE | 2020-06-16 12:07 | PRG ---
DATE OF SERVICE: 06/16/2020 SUBJECTIVE: Guido Manuel is no longer encephalopathic. This morning, he is awake, alert, and responsive. OBJECTIVE: VITAL SIGNS: Temperature is 98, pulse 91, respiratory rate 18, sats 96% on room air, blood pressure 130/68. CHEST: No wheezing. No crackles. CARDIAC: Normal S1 and S2. ABDOMEN: No masses. LABORATORY DATA: Unremarkable. His white count is down to normal. MRI showed a recent lacunar infarct of the left centrum. IMPRESSION: Metabolic encephalopathy, better; respiratory failure, improved; morbid obesity; status post coronary artery bypass graft. Home any time. Pulmonary to follow at a distance. He is to see us in the office in a month. Outpatient sleep study. Job ID: [id number]
[2020-06-16] MEDS ORDERED: Nystatin 500,000 UNITS/5 ML UDCUP SSW SCH (13:00)
--- NOTE | 2020-06-16 19:55 | DIS ---
DATE OF ADMISSION: 05/28/2020 DATE OF DISCHARGE: 06/16/2020 RESIDENT: Alexandra Tobias MD ADMITTING ATTENDING: Analia Gregory MD DISCHARGE ATTENDING: Ashu Fontenot MD CONSULTS: 1. Cardiovascular Surgery, Dr. Johnston. 2. Cardiology, Dr. London. 3. Pulmonology, Dr. Gibbons. 4. PT, OT, Speech, and dietitian. PROCEDURES: Please see Dr. Fermin's transition of care note on 06/10/2020 to see procedures performed up to that date. After that procedures include a chest x- ray on 06/12/2020, which showed postop sternotomy change. NG tube remains in place. Central line unchanged. Cardiomegaly. Diffuse vascular and interstitial prominence seen bilaterally. This may represent diffuse interstitial edema. There are patchy areas of confluent atelectasis or infiltrate in lung bases and evidence of small effusion. Chest x-ray on 06/13/2020, which showed stable exam. Venous Doppler of the left upper extremity and it showed positive nonocclusive thrombosis of the left basilic vein of the forearm. Chest x-ray on 06/15/2020, which showed improvement in interstitial densities. Lungs appear clear. Brain MRI on 06/15/2020, which showed recent lacunar infarct in the left centrum semiovale. PRIMARY DIAGNOSIS: Acute hypoxic respiratory failure secondary to suspected [id number] myocardial infarction. SECONDARY DIAGNOSES: 1. Postop coronary artery bypass graft x4, complicated by recurrent bleeding with mediastinal exploration. 2. Atrial fibrillation. 3. Edema of left hand secondary to basilic vein thrombosis. 4. Indeterminate troponin. 5. Encephalopathy secondary to lacunar infarct. 6. Hypophosphatemia. 7. Hypokalemia. 8. Coronary artery disease. 9. Anemia. 10. Hypertension. 11. Hyperlipidemia. 12. Type 2 diabetes. 13. Chronic kidney disease 3A. 14. History of tobacco abuse. DISCHARGE MEDICATIONS: 1. Melatonin 3 mg p.o. at bedtime p.r.n. 2. Acetaminophen 650 mg p.o. q.4 hours p.r.n. 3. Lasix 40 mg p.o. daily before food. 4. Xylocaine 2% viscous 30 mL swish and swallow as needed. 5. Aspirin 325 p.o. daily. 6. Potassium chloride 20 mEq p.o. b.i.d. 7. Flexeril 10 mg p.o. t.i.d. 8. Vitamin D3 of 5000 units p.o. every morning. 9. Escitalopram 20 mg p.o. daily. 10. Cetirizine 10 mg p.o. daily. 11. Protonix 40 mg p.o. daily. 12. Nitroglycerin 0.4 mg sublingual as needed for chest pain. 13. Toprol 100 mg p.o. daily. 14. Fenofibrate 135 mg p.o. daily. 15. [place]-3 acid ethyl esters 1 g p.o. b.i.d. 16. Crestor 1 tablet p.o. at bedtime. 17. Metformin 500mg p.o. BID DISCONTINUED MEDICATIONS: 1. Tylenol No. 3. 2. Tizanidine. 3. Amlodipine. 4. Ranexa. 5. Plavix. 6. Clindamycin. 7. Pioglitazone 30 mg p.o. daily. HISTORY OF PRESENT ILLNESS/HOSPITAL COURSE: Please see Dr. Fermin's transition of care note on 06/10/2020 to see event of hospitalization leading up to this date. After extubation, the patient remained encephalopathic and he was able to follow commands, however, could not interact with communication. An MRI was ordered to workup this acute encephalopathy. However, it was canceled secondary to the patient's improvement. Everyday the patient seemed to get better. However, he was still not at his baseline as per 's concerns. An extensive neuro exam was performed, which showed the patient was unable to do three word recall and was unsteady on his feet and was swaying to one side when standing. An MRI of his brain was done, which showed a lacunar infarct as noted above. The patient's respiratory status continued to improve. After extubation, he did require a few days of BiPAP and nasal cannula, however, spent more than 48 hours before discharge on room air, saturating well. The patient was in and out of atrial fibrillation; however, he was rate controlled the whole time and was followed closely by Cardiology. The patient's home Plavix was stopped secondary to complications of bleeding leading to mediastinal exploration. CV, Pulmonary, and Cardiology recs were followed closely. The patient continued to work well with PT. On day of discharge, the patient did a walking test because of complaints of shortness of breath with exertion, was found to desat to the 80s, so home O2 was arranged for him to use especially during exertion and during rehab. The patient elected to go home with home health, which was set up prior to discharge. DISPOSITION: Stable. DISCHARGE INSTRUCTIONS: 1. Location: Home with home health. 2. Diet: Heart healthy diet. 3. Activity with cardiopulmonary limits. 4. Follow up with cardiac rehab and [facility]. The patient has an appointment on 07/19/[address] Muñoz and appointment on 06/22/[address] Souza, primary care provider and an appointment on 06/27/[address] Johnston. Job ID: [id number] [facility]
[2020-06-16] MEDS ORDERED: Rosuvastatin 20 MG TAB PO SCH ×2 (21:00)
--- NOTE | 2020-06-17 08:26 | DIS ---
DATE OF ADMISSION: 05/28/2020 DATE OF DISCHARGE: 06/16/2020 HOSPITAL COURSE: This is a pleasant 64-year-old gentleman who was admitted to the hospital on 05/28 by the [facility] for shortness of breath which was rather significant and alarming to the patient. His O2 sats were initially in the low 80s and then slowly improved. CT scan of his chest showing no evidence of pulmonary embolus, but suspicious for some emphysema and mild congestive heart failure. He underwent an echo demonstrating a 55% to 60% EF, although endocardial definition was poor. He underwent a stress test showing EF of 41% with a fixed defect in the inferolateral wall and stress abnormalities in the distal anterior septal wall that was reversible. He was seen by Dr. London and underwent cardiac catheterization showing severe three-vessel coronary artery disease. The patient was seen in consultation by myself where he was felt to be a candidate for surgery with possible grafting to an LAD, diagonal, and PDA. Circumflex was chronically occluded and it was not clear whether these were large enough to graft. Due to the fact that he was on Plavix, his surgery was delayed an additional 5 days and he was taken to the operating room. At that time, he did undergo surgical intervention and at the time of surgery, he was actually found to have a sizable obtuse marginal on the lateral wall that was grafted as well as the diagonal PDA and LAD. At the conclusion of the procedure, the patient had significant bleeding requiring reopening of his sternum and there was some bleeding at one of the wire exit points on the manubrium, but otherwise no active bleeding was found. He was taken to the ICU where he had persistent steady bleeding with stable hemodynamics. However, it was felt that he should be returned to the operating room. Initially, he was found to have clots on the posterior aspect of his heart with no obvious bleeding site from the OM anastomosis. However, ultimately I was able to find a bleeding spot and this was secured. Postoperatively, he was unable to be extubated due to hypoxia and probably some metabolic encephalopathy. He was ultimately extubated with a slow but steady improvement in his metabolic encephalopathy. He was maintained on antibiotics for about a week, subsequently having some thrush of his tongue. His white count was satisfactory. His hemoglobin was stable and his creatinine was about 1, having decreased from a high of about 2.3. He will be discharged today on nystatin swish and swallow for a week, Lasix 40 mg a day for 10 days, potassium supplements, and resume his metoprolol-XL 100 a day, atorvastatin 20 at bedtime and his diabetic medications. Incisions are healing nicely. Discharge and followup instructions have been given. Job ID: [id number]
[2020-06-20 14:13] LABS: Actual Bicarbonate (HCO3a) 23.7 mEq/L (22-28); Analyzer IN Cardio OR; Base Excess (BEa) -1.8 mEq/L (-2.0 to +3.0); CO2 Tension 43.6 mmHg (35.0-45.0); Calcium, Ionized (arterial) 1.14 mmol/L (1.12-1.30); Carboxyhemoglobin (COHb) 0.2 gm% (0.0-3.0); Hemoglobin (Hb) 10.1 g/dL (14.0-18.0); O2 Tension (PaO2), arterial 300.2 mmHg (> 80.0); Potassium - ABG Lab 3.87 mmol/L (3.70-5.30); pH, Arterial 7.35 (7.35-7.45)
[2020-06-20 14:13] LABS: Actual Bicarbonate (HCO3a) 24.8 mEq/L (22-28); Analyzer IN Cardio OR; Base Excess (BEa) -0.1 mEq/L (-2.0 to +3.0); CO2 Tension 41.3 mmHg (35.0-45.0); Calcium, Ionized (arterial) 1.17 mmol/L (1.12-1.30); Carboxyhemoglobin (COHb) 0.8 gm% (0.0-3.0); Hemoglobin (Hb) 10.9 g/dL (14.0-18.0); O2 Tension (PaO2), arterial 377.5 mmHg (> 80.0); Potassium - ABG Lab 3.94 mmol/L (3.70-5.30)
[2020-06-20 14:14] LABS: Actual Bicarbonate (HCO3v) 25 mEq/L (22-28); Analyzer IN Cardio OR; Base Excess -0.3 mEq/L (-2.0 to +3.0); Calcium, Ionized (venous) 1.03 mmol/L (1.16-1.32); Chloride (VBG) 106 mmol/L (98-106); Hemoglobin (Hb) 7.3 g/dL (12.6-17.4); Potassium (VBG) 4.21 mmol/L (3.70-5.30); pH (venous) 7.39 (7.32-7.43)
[2020-06-20 14:14] LABS: Actual Bicarbonate (HCO3a) 23.1 mEq/L (22-28); Analyzer IN Cardio OR; Base Excess (BEa) -1.5 mEq/L (-2.0 to +3.0); CO2 Tension 38.1 mmHg (35.0-45.0); Calcium, Ionized (arterial) 1.03 mmol/L (1.12-1.30); Hemoglobin (Hb) 7.4 g/dL (14.0-18.0); Potassium - ABG Lab 4.33 mmol/L (3.70-5.30)
[2020-06-20 14:14] LABS: Actual Bicarbonate (HCO3a) 23.6 mEq/L (22-28); Analyzer IN Cardio OR; Base Excess (BEa) 0.5 mEq/L (-2.0 to +3.0); CO2 Tension 31.2 mmHg (35.0-45.0); Carboxyhemoglobin (COHb) 1.1 gm% (0.0-3.0); Hemoglobin (Hb) 7.3 g/dL (14.0-18.0); O2 Tension (PaO2), arterial 421.2 mmHg (> 80.0); Potassium - ABG Lab 4.72 mmol/L (3.70-5.30)
[2020-06-20 14:15] LABS: Puncture Site Arterial Line
[2020-06-20 14:15] LABS: Actual Bicarbonate (HCO3a) 23.1 mEq/L (22-28); Analyzer IN Cardio OR; CO2 Tension 40.8 mmHg (35.0-45.0); Calcium, Ionized (arterial) 1.06 mmol/L (1.12-1.30); Hemoglobin (Hb) 7.6 g/dL (14.0-18.0); O2 Tension (PaO2), arterial 423.1 mmHg (> 80.0); Potassium - ABG Lab 3.87 mmol/L (3.70-5.30); pH, Arterial 7.37 (7.35-7.45)
[2020-06-20 14:16] LABS: Puncture Site Arterial Line
[2020-06-20 14:17] LABS: Puncture Site Arterial Line
[2020-06-20 14:18] LABS: Puncture Site Arterial Line
[2020-06-20 14:18] LABS: Puncture Site Arterial Line
[2020-06-20 14:20] LABS: Actual Bicarbonate (HCO3a) 22.2 mEq/L (22-28); Analyzer IN Cardio OR; Base Excess (BEa) -2.7 mEq/L (-2.0 to +3.0); CO2 Tension 39.1 mmHg (35.0-45.0); Carboxyhemoglobin (COHb) 1.2 gm% (0.0-3.0); Hemoglobin (Hb) 7.3 g/dL (14.0-18.0); O2 Tension (PaO2), arterial 288.9 mmHg (> 80.0); Potassium - ABG Lab 3.77 mmol/L (3.70-5.30); pH, Arterial 7.37 (7.35-7.45)
[2020-06-20 14:20] LABS: Actual Bicarbonate (HCO3a) 22.4 mEq/L (22-28); Analyzer IN Cardio OR; Base Excess (BEa) -3.2 mEq/L (-2.0 to +3.0); CO2 Tension 42.1 mmHg (35.0-45.0); Calcium, Ionized (arterial) 1.17 mmol/L (1.12-1.30); Carboxyhemoglobin (COHb) 1.3 gm% (0.0-3.0); Hemoglobin (Hb) 8.7 g/dL (14.0-18.0); O2 Tension (PaO2), arterial 322.6 mmHg (> 80.0); Potassium - ABG Lab 3.86 mmol/L (3.70-5.30); pH, Arterial 7.34 (7.35-7.45)
[2020-06-20 14:21] LABS: Actual Bicarbonate (HCO3a) 23.1 mEq/L (22-28); Analyzer IN Cardio OR; Base Excess (BEa) -4.5 mEq/L (-2.0 to +3.0); CO2 Tension 55.5 mmHg (35.0-45.0); Calcium, Ionized (arterial) 1.19 mmol/L (1.12-1.30); Carboxyhemoglobin (COHb) 0.8 gm% (0.0-3.0); Hemoglobin (Hb) 9.6 g/dL (14.0-18.0); O2 Tension (PaO2), arterial 75.7 mmHg (> 80.0); Potassium - ABG Lab 4.39 mmol/L (3.70-5.30)
[2020-06-20 14:21] LABS: Actual Bicarbonate (HCO3a) 22.3 mEq/L (22-28); Analyzer IN Cardio OR; CO2 Tension 52.8 mmHg (35.0-45.0); Calcium, Ionized (arterial) 1.15 mmol/L (1.12-1.30); Carboxyhemoglobin (COHb) 0.4 gm% (0.0-3.0); Potassium - ABG Lab 4.48 mmol/L (3.70-5.30)
[2020-06-20 14:21] LABS: Puncture Site Arterial Line
[2020-06-20 14:22] LABS: Puncture Site Arterial Line
[2020-06-20 14:23] LABS: pH, Arterial 7.24 (7.35-7.45)
[2020-06-20 14:24] LABS: Puncture Site Arterial Line
[2020-06-20 14:24] LABS: Puncture Site Arterial Line; pH, Arterial 7.24 (7.35-7.45)
== END 2020-06-16 16:10 | disposition home health service (06) | DRG 233 ==
LOC: ERS 07:32 → 2SE 09:38 → CCU 06-06 07:56 → 2NO 06-14 09:25
PROVIDERS: ADMIT Family Medicine; ATTEND Family Medicine
PROC: 4A023N7 Measurement of Cardiac Sampling and Pressure, Left Heart, Percutaneous Approach (ICD-10-PCS; principal; 2020-05-31)
PROC: B2111ZZ Fluoroscopy of Multiple Coronary Arteries using Low Osmolar Contrast (ICD-10-PCS; 2020-05-31)
PROC: B2151ZZ Fluoroscopy of Left Heart using Low Osmolar Contrast (ICD-10-PCS; 2020-05-31)
PROC: 02100Z9 Bypass Coronary Artery, One Artery from Left Internal Mammary, Open Approach (ICD-10-PCS; 2020-06-06)
PROC: 02100AW Bypass Coronary Artery, One Artery from Aorta with Autologous Arterial Tissue, Open Approach (ICD-10-PCS; 2020-06-06)
PROC: 021109W Bypass Coronary Artery, Two Arteries from Aorta with Autologous Venous Tissue, Open Approach (ICD-10-PCS; 2020-06-06)
PROC: 03BC4ZZ Excision of Left Radial Artery, Percutaneous Endoscopic Approach (ICD-10-PCS; 2020-06-06)
PROC: 06BQ4ZZ Excision of Left Saphenous Vein, Percutaneous Endoscopic Approach (ICD-10-PCS; 2020-06-06)
PROC: 0WCC0ZZ Extirpation of Matter from Mediastinum, Open Approach (ICD-10-PCS; 2020-06-06)
PROC: 0W3C0ZZ Control Bleeding in Mediastinum, Open Approach (ICD-10-PCS; 2020-06-06)
PROC: 30233L1 Transfusion of Nonautologous Fresh Plasma into Peripheral Vein, Percutaneous Approach (ICD-10-PCS; 2020-06-06)
PROC: 30233N1 Transfusion of Nonautologous Red Blood Cells into Peripheral Vein, Percutaneous Approach (ICD-10-PCS; 2020-06-06)
PROC: 30233R1 Transfusion of Nonautologous Platelets into Peripheral Vein, Percutaneous Approach (ICD-10-PCS; 2020-06-06)
PROC: 30233K1 Transfusion of Nonautologous Frozen Plasma into Peripheral Vein, Percutaneous Approach (ICD-10-PCS; 2020-06-06)
PROC: 5A1221Z Performance of Cardiac Output, Continuous (ICD-10-PCS; 2020-06-06)
PROC: 3E033XZ Introduction of Vasopressor into Peripheral Vein, Percutaneous Approach (ICD-10-PCS; 2020-06-08)
PROC: 5A09457 Assistance with Respiratory Ventilation, 24-96 Consecutive Hours, Continuous Positive Airway Pressure (ICD-10-PCS; 2020-06-10)
DX: I21.4 Non-ST elevation (NSTEMI) myocardial infarction (principal); J96.01 Acute respiratory failure with hypoxia; I50.23 Acute on chronic systolic (congestive) heart failure; G93.41 Metabolic encephalopathy; I82.612 Acute embolism and thrombosis of superficial veins of left upper extremity; I13.0 Hypertensive heart and chronic kidney disease with heart failure and stage 1 through stage 4 chronic kidney disease, or unspecified chronic kidney disease; I97.611 Postprocedural hemorrhage of a circulatory system organ or structure following cardiac bypass; N17.9 Acute kidney failure, unspecified; B37.0 Candidal stomatitis; Z20.822 Contact with and (suspected) exposure to COVID-19; Z23 Encounter for immunization; E83.39 Other disorders of phosphorus metabolism; E87.6 Hypokalemia; I25.10 Atherosclerotic heart disease of native coronary artery without angina pectoris; D63.1 Anemia in chronic kidney disease; E11.22 Type 2 diabetes mellitus with diabetic chronic kidney disease; N18.31 Chronic kidney disease, stage 3a; E78.5 Hyperlipidemia, unspecified; K21.9 Gastro-esophageal reflux disease without esophagitis; G47.30 Sleep apnea, unspecified; E66.01 Morbid (severe) obesity due to excess calories; I48.91 Unspecified atrial fibrillation; Y84.0 Cardiac catheterization as the cause of abnormal reaction of the patient, or of later complication, without mention of misadventure at the time of the procedure; Z90.49 Acquired absence of other specified parts of digestive tract; Z95.5 Presence of coronary angioplasty implant and graft; Z88.2 Allergy status to sulfonamides; Z88.5 Allergy status to narcotic agent; Z79.82 Long term (current) use of aspirin; Z79.899 Other long term (current) drug therapy; Z87.891 Personal history of nicotine dependence; Z79.01 Long term (current) use of anticoagulants; Z68.39 Body mass index [BMI] 39.0-39.9, adult; Z86.73 Personal history of transient ischemic attack (TIA), and cerebral infarction without residual deficits
CPT/HCPCS: 0240U; 36415; 36416; 36430; 36600; 70551; 71045; 71275; 76942; 78452; 80048; 80053; 80061; 80076; 82550; 82553; 82805; 83036; 83605; 83735; 83880; 84100; 84145; 84443; 84484; 85014; 85018; 85025; 85027; 85049; 85379; 85520; 85610; 85730; 86850; 86900; 86901; 87040; 87070; 87086; 87205; 87635; 90471; 90662; 93005; 93010; 93017; 93306; 93458; 93798; 94002; 94003; 94640; 94660; 96374; 96375; 99152; 99153; A9500; G0008; J0282; J0360; J0456; J0690; J0692; J0696; J1100; J1160; J1630; J1642; J1644; J1650; J1815; J1940; J2001; J2060; J2150; J2250; J2270; J2370; J2405; J2440; J2704; J2720; J2785; J3010; J3370; J3475; J3480; J3490; J7050; J7070; J7620; P9016; P9035; P9045; P9059; Q0163; Q9967; S0017; S0028; U0003

== ENCOUNTER 2020-06-26 10:16 | Inpatient (IN) | payer MEDICARE ==
[2020-06-26] MEDS ORDERED: Dexamethasone 10 MG/ML VIAL ONE (10:56)
--- NOTE | 2020-06-26 11:27 | PDOC.FPRHP ---
- History of Present Illness Chief Complaint: dyspnea, fever History of Present Illness: 64 yo M presents as tfx from [facility] for AHRF 2/2 COVID PNA. Patient's tested positive on 06/23 and they have been living together. Last night he felt more short of breath and so went to the [facility]. He tested COVID + AND He was on 88% on RA and so was put on 3L of NC, however pt at baseline has been on 3L at home since last hospitalization. He did have a fever in the ER of 101.4.He denies feeling feverish, chills, loss of smell or taste. Of note, he was recently discharged on 06/16/19 after undergoing CABG x4 with Dr. Johnston complicated by recurrent intrathoracic bleed x2 and requiring mediastinal exploration. He is currently only on ASA and received that this morning. He CTA showed no PE but bibiasilar infiltrates. He has a hx of HFpEF since last hospitalization had was given a short course of lasix to take as needed. Currently denies orthopnea or LE swelling. In addition he was found to have indetreminate troponins but denies chest pain. In fact his troponin is lower than his prior ones this last hospitalization. Patient denies any signs of overt bleeding. confirms the medications he was discharged on are the same ones he takes at home. - Allergies/Adverse Reactions Allergies Allergy/AdvReac Type Severity Reaction Status Date / Time Sulfa (Sulfonamide Allergy Verified 06/26/20 14:08 Antibiotics) coconuts Allergy Severe Hives Uncoded 06/26/20 14:08 - Home Medications Medication Instructions Recorded Confirmed Type Cetirizine HCl [Zyrtec] 10 mg PO DAILY 04/12/20 05/28/20 History Cholecalciferol (Vitamin D3) 5,000 unit PO QAM 04/12/20 05/28/20 History [Vitamin D3] Cyclobenzaprine [Flexeril] 10 mg PO TID 04/12/20 05/28/20 History Escitalopram Oxalate 20 mg PO DAILY 04/12/20 05/28/20 History Fenofibrate,Micronized 135 mg PO DAILY 04/12/20 05/28/20 History [Fenofibrate] Metoprolol Succinate [Toprol XL] 100 mg PO DAILY 04/12/20 05/28/20 History Nitroglycerin 0.4 mg SL PRN PRN 04/12/20 05/28/20 History [place]-3 Acid Ethyl Esters [Lovaza] 1 gm PO BID 04/12/20 05/28/20 History Pantoprazole [Protonix] 40 mg PO DAILY 04/12/20 05/28/20 History Pioglitazone HCl 30 mg PO DAILY 04/12/20 05/28/20 History Rosuvastatin [Crestor] 1 tab PO HS 04/12/20 05/28/20 History Acetaminophen [Tylenol Regular 650 mg PO Q4H PRN tab 06/01/20 Rx Strength] Melatonin 3 mg PO HS PRN tab 06/01/20 Rx Aspirin [Ecotrin Regular Strength] 325 mg PO DAILY tab 06/16/20 Rx Furosemide [Lasix] 40 mg PO DAILY-AC 10 Days #10 tab 06/16/20 Rx Lidocaine 2% Viscous Solution 30 ml SSW PRN PRN 5 Days #5 udcup 06/16/20 Rx [Xylocaine 2% Viscous] Potassium Chloride [K-Dur] 20 meq PO BID #60 tab 06/16/20 Rx - History PMHx: -CAD s/p multiple stents in LAD and RCA with recurrent bleeding requiring surgical intervention. s/p recent angioplasty and stent placement in March. [employer] Intern is Dr. Muñoz, HTN, T2DM PSHx: -spinal surgery, April, Dr. Mccarty -ex lap for colonic rupture -bunions -stent placements, 1997 and 2001 FHx: -Father: CAD Social: -Former smoker of 30 years 1PPD, quit 10 years ago -Social ETOH -No drugs -Lives with . Retired. - Review of Systems General: denies: fever/chills, weight/appetite/sleep changes Eyes: denies: eye pain, vision changes ENT: denies: nasal congestion, rhinorrhea Respiratory: reports: shortness of breath. denies: cough, congestion Cardiovascular: denies: chest pain, edema, orthopnea Gastrointestinal: reports: diarrhea. denies: nausea, vomiting, constipation Skin: reports: lesions (purpura of abdomen) Musculoskeletal: denies: pain, tenderness, stiffness Neurological: reports: weakness. denies: numbness, syncope, seizure Psychological: denies: anxiety, depression - Vital signs BP: 115/73, MAP: 87, Pulse: 75, Resp: 23, Temp: 98.2 (Oral), Pain: 0, O2 sat: 100 on (3L Oxygen), Time: 06/26/2020 11:08. - Physical Exam Constitutional: NAD HEENT: normocephalic and atraumatic, PERRLA, EOMI, conjunctiva clear, no scleral icterus Neck: supple, FROM, trachea midline Heart: RRR, normal S1/S2, no murmurs/rubs/gallops Lungs: CTAB, no respiratory distress, good air movement, no wheezing, no retractions Abdomen: soft, non-tender Musculoskeletal: normal structure, normal tone, ROM grossly normal Neurological: no focal deficit, CN II-XII intact -Skin: midline scar, well healed abdomen with old skin contracture from midline scar -Heme/Lymphatic: purpura on abdomen and extremities Psychiatric: normal mood and affect, good judgment and insight FMR H&P: Results - Radiology Interpretation Chest x-ray Status: image reviewed by me, report reviewed by me Additional comment: Bilateral interstitial infiltrates, cardiomeagly, possible alveolar edema CT scan - chest Status: image reviewed by me, report reviewed by me Additional comment: Bibasilar ground glass opacities, no evidence for PE or pulmonary congestion FMR H&P: A/P - Plan 64 yo M with hx of recent CABG x4 here for acute hypoxic repiratory failure 2/2 to COVID PNA. #Acute hypoxic respiratory failure 2/2 COVID PNA -Sxs 06/25, COVID+ 06/26 -88% on RA, requiring 3L N/C (usually 3L at baseline). On chart review patient was sent with home O2 last hospitalization for desaturation with exertion, likely 2/2 to cardiopulmonary issues. Can try weaning this during hospi talization if allowed. -Ddimer 3.72-CTA negative for PE but suspicious for COVID findings -s/p vanc & rocephin. Obtain procal, abx if elevated -Continue steroids, will start remdesivir and convalescent plasma -LDH, Ferritin, CRP to risk stratify -Supportive care #HFpEF: EF 55-60% on 06/09/20. Euvolemic. Lasix PRN. #Indeterminate troponin: EKG: with Q waves in III, aVF. No major ST/T wave changes. >.056, lower than it has been previously. Suspect demand ischemia from recent CABG end of May. Will trend with tele monitoring. #Anemia: Hb 9.4. No signs of overt bleeding. At baseline, monitor. #Hx of CABG x4 complicated by recurrent bleeding: Underwent CABG on 06/06/20 for severe CAD which was complicated by intrathoracic bleeding requiring OR mediastinal exploration x2. Continue ASA. #CKD: Cr mildly elevated but stable. Rpt in AM. #Afib: Rate controlled. Continue Toprol. #Hx of lacunar infarct: No FND. Stable. #HTN: Stable, monitor #HLD: Home meds #DM2: Sliding scale #GERD: Home protonix PCP: Dr. Nahun Souza GI ppx: Protonix Dvt ppx: Pending CV surg clearance Abx: Pending procal Code: Full FMR H&P: Upper Level - Plan Date/Time: 06/26/20 1126 I, [], have evaluated this patient and agree with findings/plan as outlined by purchasing intern resident. Pertinent changes/additions are listed here. Addendum - Attending - Attending Attestation Date/Time: 06/26/20 1602 I personally evaluated the patient and discussed the management with Dr. Castillo. I agree with the History, Examination, Assessment and Plan documented above with any addition or exceptions noted below. Patient on 3L/min at home and remains that way here. No desaturation on my exam on 3L. Admit, usual care, home pending course.
[2020-06-26 12:12] LABS: Troponin I 0.041 ng/mL (< 0.028)
[2020-06-26] MEDS ORDERED: Ondansetron ODT 4 MG TAB PO PRN (12:46)
[2020-06-26] MEDS ORDERED: Acetaminophen 325 MG TAB PO PRN ×2 (12:46→16:24)
[2020-06-26] MEDS ORDERED: REMDESIVIR IVPB PRN (13:01)
[2020-06-26] MEDS ORDERED: Dextrose 50% Abboject 50 ML SYRINGE SLOW IVP PRN (13:03)
[2020-06-26] MEDS ORDERED: Dextrose 5% in Water 1,000 ML IV PRN (13:03)
[2020-06-26] MEDS ORDERED: HumaLOG 300 UNITS/3 ML VIAL SC PRN (13:03)
[2020-06-26] MEDS ORDERED: Nitroglycerin 0.4 MG TAB (25 Tab Bottle) SL PRN (13:38)
[2020-06-26] MEDS ORDERED: Furosemide 20 MG TAB PO ONE (13:58)
[2020-06-26] MEDS ORDERED: Benzonatate 100 MG CAP PO PRN (13:59)
[2020-06-26 14:18] LABS: Troponin I 0.034 ng/mL (< 0.028)
[2020-06-26] MEDS ORDERED: Furosemide 40 MG TAB ONE (14:24)
[2020-06-26] MEDS ORDERED: REMDESIVIR (EUA) 200 MG in Sodium Chloride 0.9% 250 ML 210 ML IV SCH (15:00)
[2020-06-26] MEDS ORDERED: Lidocaine Viscous Sol 2% 15 ml UD Cup SSW PRN (16:24)
[2020-06-26] MEDS: Potassium Chloride 20 MEQ TAB PO SCH (20:56)
[2020-06-26] MEDS: guaiFENesin ER 600 MG TAB PO SCH (20:57)
[2020-06-26] MEDS: Rosuvastatin 20 MG TAB PO SCH (20:57)
[2020-06-26] MEDS: Cyclobenzaprine 10 MG TAB PO SCH (21:08)
[2020-06-26] MEDS: Non-Formulary Item 1 EACH (Omega-3 Acid Ethyl Esters [Lovaza] 1 GM Capsule) PO SCH (21:26)
[2020-06-27 06:22] LABS: Anion Gap 15 mmol/L (10-20); BUN (Urea Nitrogen) 14 mg/dL (8.4-25.7); Calc. Creatinine Clearance 124 mL/min (70-130); Calcium 8.5 mg/dL (7.8-10.44); Carbon Dioxide 24 mmol/L (23-31); Chloride 105 mmol/L (98-107); Glucose 110 mg/dL (80-115); Potassium 3.8 mmol/L (3.5-5.1); Sodium 140 mmol/L (136-145)
--- NOTE | 2020-06-27 06:26 | PDOC.FM ---
- Subjective Subjective: Patient is doing well this morning. He feels as though his breathing is at his baseline and improved from last night. He has no complaints this morning. - Objective Vital Signs & Weight: Vital Signs (12 hours) Temp Pulse Resp BP Pulse Ox 06/27/20 04:45 97.4 F L 89 22 H 131/72 99 06/27/20 00:29 85 20 124/62 96 06/26/20 23:33 98 06/26/20 21:27 98.1 F 79 20 131/66 98 06/26/20 20:00 96 Weight Weight 108.409 kg Most Recent Monitor Data Heart Rate from ECG 70 NIBP 137/82 NIBP BP-Mean 100 Respiration from ECG 26 SpO2 96 I&O: 06/25/20 06/26/20 06/27/20 06:59 06:59 06:59 Intake Total 1440 Output Total 3155 Balance -1715 Result Diagrams: 06/27/20 05:09 06/27/20 05:09 EKG Reviewed by me: Yes (tele: SR 70-80s) Phys Exam - Physical Examination Constitutional: NAD HEENT: moist MMs, sclera anicteric Neck: full ROM Respiratory: no wheezing, no rales, no rhonchi, clear to auscultation bilateral Cardiovascular: RRR, no significant murmur Gastrointestinal: soft, non-tender Musculoskeletal: no edema, pulses present Neurological: moves all 4 limbs Lymphatic: no nodes Psychiatric: normal affect, A&O x 3 Skin: no rash Dx/Plan - Plan Plan: 64 yo M with hx of recent CABG x4 here for acute hypoxic repiratory failure 2/2 to COVID PNA. #Acute hypoxic respiratory failure 2/2 COVID PNA -Sxs 06/25, COVID+ 06/26 -88% on RA, requiring 3L N/C (usually 3L at baseline). On chart review patient was sent with home O2 last hospitalization for desaturation with exertion, likely 2/2 to cardiopulmonary issues. Can try weaning this during hospitalization if allowed. -Ddimer 3.72-CTA negative for PE but suspicious for COVID findings -s/p vanc & rocephin. Procal 0.07. -Continue steroids, s/p convalescent plasma, Continue remdesivir (06/26) -LDH 555, Ferritin 3315, CRP 8.33 -Supportive care #HFpEF - EF 55-60% on 06/09/20. Euvolemic. Lasix PRN. #Indeterminate troponin -EKG: with Q waves in III, aVF. No major ST/T wave changes. >.056, lower than it has been previously. Suspect demand ischemia from recent CABG end of May. Will trend with tele monitoring. #Anemia - Hb 9.4. No signs of overt bleeding. At baseline, monitor. #Hx of CABG x4 complicated by recurrent bleeding - Underwent CABG on 06/06/20 for severe CAD which was complicated by intrathoracic bleeding requiring OR mediastinal exploration x2. Continue ASA. #CKD - GFR 65, 84 - Cr 1.13, 0.9 #Afib - Rate controlled. Continue Toprol. #Hx of lacunar infarct - No FND. Stable. #HTN - Stable, monitor #HLD - Home meds #DM2 - Sliding scale #GERD - Home protonix PCP: Dr. Nahun Souza GI ppx: Protonix Dvt ppx: Pending CV surg clearance Code: Full Dispo: Patient has baseline O2 requirement this morning and reports increasing respiratory status. Will require 4 more days to finish course of remdisivir. Addendum - Attending - Attending Attestation Date/Time: 06/27/20 1142 I personally evaluated the patient and discussed the management with Dr. Bhatt. I agree with the History, Examination, Assessment and Plan documented above with any addition or exceptions noted below. Day 2 of remdesivir.
[2020-06-27 06:51] LABS: Band 4 % (5-11); Eosinophils 1 % (0-10); Hemoglobin 9.8 g/dL (14.0-18.0); Lymphocytes 16 % (21-51); MDiff Complete? YES; Mean Corpuscular HGB CONC 33.6 g/dL (32.0-36.0); Mean Corpuscular Hemoglobin 32.2 pg (27.0-31.0); Mean Corpuscular Volume 95.9 fL (78.0-98.0); Mean Platelet Volume 9.1 fL (7.4-10.4); Metamyelocyte 1 % (0-0); Monocytes 2 % (0-10); Neutrophil 76 % (42-75); Platelet Count 220 thou/uL (130-400); Platelet Morphology Comment Appears Adequate; RBC Distribution Width 15.4 % (11.5-14.5); Red Blood Cell (RBC) Count 3.05 mill/uL (4.70-6.10); White Blood Cell (WBC) Count 3.2 thou/uL (4.8-10.8)
[2020-06-27] MEDS: Dexamethasone 4 mg/ml Vial SLOW IVP SCH (08:20)
[2020-06-27] MEDS: Cyclobenzaprine 10 MG TAB PO SCH ×3 (08:21→20:41)
[2020-06-27] MEDS: Aspirin 325 mg Enteric Coated Tablet PO SCH (08:21)
[2020-06-27] MEDS: Fenofibrate Nanocrystallized 145 MG TAB PO SCH (08:22)
[2020-06-27] MEDS: Potassium Chloride 20 MEQ TAB PO SCH ×2 (08:22→20:41)
[2020-06-27] MEDS: Escitalopram Oxalate 20 mg Tablet PO SCH (08:22)
[2020-06-27] MEDS: guaiFENesin ER 600 MG TAB PO SCH ×2 (08:23→20:41)
[2020-06-27] MEDS: Loratadine 10 MG TAB PO SCH (08:23)
[2020-06-27] MEDS: Cholecalciferol 1,000 UNITS (25 MCG) TAB PO SCH (08:23)
[2020-06-27] MEDS ORDERED: Dexamethasone 20 MG/5 ML VIAL SLOW IVP SCH (09:00)
[2020-06-27] MEDS: Non-Formulary Item 1 EACH (Omega-3 Acid Ethyl Esters [Lovaza] 1 GM Capsule) PO SCH ×2 (09:10→20:42)
[2020-06-27] MEDS: REMDESIVIR (EUA) 100 MG in Sodium Chloride 0.9% 250 ML 230 ML IV SCH (16:11)
[2020-06-27] MEDS: HumaLOG 300 UNITS/3 ML VIAL SC PRN (16:47)
[2020-06-27] MEDS: Rosuvastatin 20 MG TAB PO SCH (20:41)
[2020-06-28] MEDS: Melatonin 3 MG TAB PO PRN ×2 (00:26→20:21)
[2020-06-28 05:12] LABS: #Lymphocytes 0.8 thou/uL (1.20-3.40); #Monocytes 0.5 thou/uL (0.11-0.59); #Neutrophils 4.7 thou/uL (1.40-6.50); %Basophils 0.3 % (0.0-1.0); %Eosinophils 0.1 % (0.0-10.0); %Lymphocytes 13.7 % (21.0-51.0); %Neutrophils 77.9 % (42.0-75.0); Hemoglobin 9.6 g/dL (14.0-18.0); Mean Corpuscular HGB CONC 33.3 g/dL (32.0-36.0); Mean Corpuscular Hemoglobin 31.8 pg (27.0-31.0); Mean Corpuscular Volume 95.5 fL (78.0-98.0); Platelet Count 265 thou/uL (130-400); RBC Distribution Width 15.7 % (11.5-14.5); Red Blood Cell (RBC) Count 3.01 mill/uL (4.70-6.10)
[2020-06-28 05:34] LABS: ALT (SGPT) 12 U/L (8-55); AST (SGOT) 28 U/L (5-34); Albumin 2.8 g/dL (3.4-4.8); Alkaline Phosphatase 69 U/L (40-110); Anion Gap 12 mmol/L (10-20); BUN (Urea Nitrogen) 20 mg/dL (8.4-25.7); Bilirubin, Direct 0.4 mg/dL (0.1-0.3); Bilirubin, Total 0.6 mg/dL (0.2-1.2); Calc. Creatinine Clearance 127 mL/min (70-130); Calcium 8.9 mg/dL (7.8-10.44); Carbon Dioxide 23 mmol/L (23-31); Chloride 105 mmol/L (98-107); Glucose 128 mg/dL (80-115); Potassium 3.8 mmol/L (3.5-5.1); Protein, Total 5.7 g/dL (5.8-8.1); Sodium 136 mmol/L (136-145)
--- NOTE | 2020-06-28 06:45 | PDOC.FM ---
- Subjective Subjective: Patient is doing well this morning. He says his breathing has improved and he has no complaints. - Objective Vital Signs & Weight: Vital Signs (12 hours) Temp Pulse Resp BP Pulse Ox 06/28/20 04:00 97.6 F 73 18 136/63 98 06/28/20 00:00 95 06/27/20 23:00 74 111/62 06/27/20 20:00 100 06/27/20 19:56 98.5 F 83 18 121/67 100 Weight Admit Weight 108.409 kg Weight 108.227 kg Most Recent Monitor Data Heart Rate from ECG 70 NIBP 137/82 NIBP BP-Mean 100 Respiration from ECG 26 SpO2 96 I&O: 06/26/20 06/27/20 06/28/20 06:59 06:59 06:59 Intake Total 1440 Output Total 3155 625 Balance -1715 -195 Result Diagrams: 06/28/20 04:40 06/28/20 04:40 EKG Reviewed by me: Yes (tele: SR 60-70s) Phys Exam - Physical Examination Constitutional: NAD HEENT: moist MMs, sclera anicteric Neck: full ROM Respiratory: no wheezing, no rales, no rhonchi, clear to auscultation bilateral Cardiovascular: RRR, no significant murmur Gastrointestinal: soft, non-tender Musculoskeletal: no edema, pulses present Neurological: moves all 4 limbs Psychiatric: normal affect, A&O x 3 Skin: no rash Dx/Plan - Plan Plan: 64 yo M with hx of recent CABG x4 here for acute hypoxic repiratory failure 2/2 to COVID PNA. #Acute hypoxic respiratory failure 2/2 COVID PNA -Sxs 06/25, COVID+ 06/26 -Ddimer 3.72-CTA negative for PE but suspicious for COVID findings -s/p vanc & rocephin. Procal 0.07. LDH 555, Ferritin 3315, CRP 8.33 -Continue steroids, s/p convalescent plasma, Continue remdesivir (06/26) -Has been weaned to 2L NC. Continue to wean as tolerated. #HFpEF - EF 55-60% on 06/09/20. Euvolemic. Lasix PRN. #Indeterminate troponin -EKG: with Q waves in III, aVF. No major ST/T wave changes. >.056, lower than it has been previously. Suspect demand ischemia from recent CABG end of May. Will trend with tele monitoring. #Anemia - Hb 9.4. No signs of overt bleeding. At baseline, monitor. #Hx of CABG x4 complicated by recurrent bleeding - Underwent CABG on 06/06/20 for severe CAD which was complicated by intrathoracic bleeding requiring OR mediastinal exploration x2. Continue ASA. #CKD - GFR 65, 84 - Cr 1.13, 0.9, 0.88 #Afib - Rate controlled. Continue Toprol. #Hx of lacunar infarct - No FND. Stable. #HTN - Stable, monitor #HLD - Home meds #DM2 - Sliding scale #GERD - Home protonix PCP: Dr. Nahun Souza GI ppx: Protonix Dvt ppx: lovenox 40mg Code: Full Dispo: Patient's respiratory status continues to improve. Day 3/5 of remdisivir. Addendum - Attending - Attending Attestation Date/Time: 06/28/20 4386 I personally evaluated the patient and discussed the management with Dr. Bhatt. I agree with the History, Examination, Assessment and Plan documented above with any addition or exceptions noted below. weaning off oxygen. continue steroids and remdesivir.
[2020-06-28] MEDS: Enoxaparin Sodium 40 MG/0.4 ML SYRINGE SC SCH (08:55)
[2020-06-28] MEDS: Cholecalciferol 1,000 UNITS (25 MCG) TAB PO SCH (08:56)
[2020-06-28] MEDS: Potassium Chloride 20 MEQ TAB PO SCH ×2 (08:56→20:15)
[2020-06-28] MEDS: Aspirin 325 mg Enteric Coated Tablet PO SCH (08:57)
[2020-06-28] MEDS: guaiFENesin ER 600 MG TAB PO SCH ×2 (08:57→20:15)
[2020-06-28] MEDS: Cyclobenzaprine 10 MG TAB PO SCH ×3 (08:58→20:16)
[2020-06-28] MEDS: Loratadine 10 MG TAB PO SCH (08:58)
[2020-06-28] MEDS: Fenofibrate Nanocrystallized 145 MG TAB PO SCH (08:58)
[2020-06-28] MEDS: Escitalopram Oxalate 20 mg Tablet PO SCH (08:58)
[2020-06-28] MEDS: Non-Formulary Item 1 EACH (Omega-3 Acid Ethyl Esters [Lovaza] 1 GM Capsule) PO SCH (08:59)
[2020-06-28] MEDS: Dexamethasone 4 mg/ml Vial SLOW IVP SCH (08:59)
[2020-06-28] MEDS: REMDESIVIR (EUA) 100 MG in Sodium Chloride 0.9% 250 ML 230 ML IV SCH (15:06)
[2020-06-28] MEDS: Rosuvastatin 20 MG TAB PO SCH (20:15)
[2020-06-29 05:03] VITALS: BMI 36.2
[2020-06-29 05:27] LABS: ALT (SGPT) 14 U/L (8-55); AST (SGOT) 25 U/L (5-34); Alkaline Phosphatase 72 U/L (40-110); Bilirubin, Direct 0.4 mg/dL (0.1-0.3); Bilirubin, Total 0.7 mg/dL (0.2-1.2); Protein, Total 6.1 g/dL (5.8-8.1)
[2020-06-29] MEDS: Non-Formulary Item 1 EACH (Omega-3 Acid Ethyl Esters [Lovaza] 1 GM Capsule) PO SCH ×3 (05:56→22:01)
--- NOTE | 2020-06-29 06:53 | PDOC.FM ---
- Subjective Subjective: Mr. Manuel is feeling well this morning. He has no complaints. He would like to be discharged tomorrow after his 5th dose of remdesivir. - Objective Vital Signs & Weight: Vital Signs (12 hours) Temp Pulse Resp BP Pulse Ox 06/29/20 03:00 97.6 F 66 20 136/66 90 L 06/29/20 00:11 92 L 06/28/20 20:00 92 L 06/28/20 19:53 97.8 F 69 16 129/74 92 L Weight Admit Weight 108.409 kg Weight 108.091 kg Most Recent Monitor Data Heart Rate from ECG 70 NIBP 137/82 NIBP BP-Mean 100 Respiration from ECG 26 SpO2 96 I&O: 06/27/20 06/28/20 06/29/20 06:59 06:59 06:59 Intake Total 1440 Output Total 4885 625 350 Balance -1715 -625 -350 Result Diagrams: 06/28/20 04:40 06/28/20 04:40 EKG Reviewed by me: Yes (tele: SR 60s) Phys Exam - Physical Examination Constitutional: NAD HEENT: moist MMs, sclera anicteric Neck: no nodes, full ROM Respiratory: no wheezing, no rales, no rhonchi, clear to auscultation bilateral Cardiovascular: RRR, no significant murmur Gastrointestinal: soft, non-tender Musculoskeletal: no edema, pulses present Neurological: non-focal, moves all 4 limbs Psychiatric: normal affect, A&O x 3 Skin: no rash Dx/Plan - Plan Plan: 64 yo M with hx of recent CABG x4 here for acute hypoxic repiratory failure 2/2 to COVID PNA. #Acute hypoxic respiratory failure 2/2 COVID PNA -Sxs 06/25, COVID+ 06/26 -Ddimer 3.72-CTA negative for PE but suspicious for COVID findings -s/p vanc & rocephin. Procal 0.07. LDH 555, Ferritin 3315, CRP 8.33 -Continue steroids, s/p convalescent plasma, Continue remdesivir (06/26) -Has been weaned to 1.5L NC. Continue to wean as tolerated. #HFpEF - EF 55-60% on 06/09/20. Euvolemic. Lasix PRN. #Indeterminate troponin -EKG: with Q waves in III, aVF. No major ST/T wave changes. >.056, lower than it has been previously. Suspect demand ischemia from recent CABG end of May. Wi ll trend with tele monitoring. #Anemia - Hb 9.4. No signs of overt bleeding. At baseline, monitor. #Hx of CABG x4 complicated by recurrent bleeding - Underwent CABG on 06/06/20 for severe CAD which was complicated by intrathoracic bleeding requiring OR mediastinal exploration x2. Continue ASA. #CKD - at baseline, continue to monitor #Afib - Rate controlled. Continue Toprol. #Hx of lacunar infarct - No FND. Stable. #HTN - Stable, monitor #HLD - Home meds #DM2 - Sliding scale #GERD - Home protonix PCP: Dr. Nahun Souza GI ppx: Protonix Dvt ppx: lovenox 40mg Code: Full Dispo: Patient's respiratory status continues to improve. Day 4/5 of remdisivir. Discharge home tomorrow. Addendum - Attending - Attending Attestation Date/Time: 06/29/20 3422 I personally evaluated the patient and discussed the management with Dr. Bhatt. I agree with the History, Examination, Assessment and Plan documented above with any addition or exceptions noted below.
[2020-06-29] MEDS: Enoxaparin Sodium 40 MG/0.4 ML SYRINGE SC SCH (09:43)
[2020-06-29] MEDS: Potassium Chloride 20 MEQ TAB PO SCH ×2 (09:44→22:01)
[2020-06-29] MEDS: guaiFENesin ER 600 MG TAB PO SCH ×2 (09:44→22:00)
[2020-06-29] MEDS: Escitalopram Oxalate 20 mg Tablet PO SCH (09:44)
[2020-06-29] MEDS: Aspirin 325 mg Enteric Coated Tablet PO SCH (09:44)
[2020-06-29] MEDS: Cholecalciferol 1,000 UNITS (25 MCG) TAB PO SCH (09:44)
[2020-06-29] MEDS: Loratadine 10 MG TAB PO SCH (09:44)
[2020-06-29] MEDS: Dexamethasone 4 mg/ml Vial SLOW IVP SCH (09:45)
[2020-06-29] MEDS: Fenofibrate Nanocrystallized 145 MG TAB PO SCH (09:45)
[2020-06-29] MEDS: Cyclobenzaprine 10 MG TAB PO SCH ×3 (09:45→22:00)
[2020-06-29] MEDS: Ferrous Sulfate 325 MG TAB PO SCH (09:45)
[2020-06-29] MEDS: REMDESIVIR (EUA) 100 MG in Sodium Chloride 0.9% 250 ML 230 ML IV SCH (15:00)
[2020-06-29] MEDS: HumaLOG 300 UNITS/3 ML VIAL SC PRN (16:26)
[2020-06-29] MEDS: Rosuvastatin 20 MG TAB PO SCH (22:00)
[2020-06-30 05:24] LABS: #Lymphocytes 0.8 thou/uL (1.20-3.40); #Monocytes 0.6 thou/uL (0.11-0.59); #Neutrophils 9.3 thou/uL (1.40-6.50); %Basophils 0.2 % (0.0-1.0); %Eosinophils 0.3 % (0.0-10.0); %Lymphocytes 7.4 % (21.0-51.0); %Neutrophils 86.2 % (42.0-75.0); Hemoglobin 10.8 g/dL (14.0-18.0); Mean Corpuscular HGB CONC 33.3 g/dL (32.0-36.0); Mean Corpuscular Hemoglobin 31.9 pg (27.0-31.0); Mean Corpuscular Volume 95.8 fL (78.0-98.0); Mean Platelet Volume 9.1 fL (7.4-10.4); Platelet Count 339 thou/uL (130-400); RBC Distribution Width 15.9 % (11.5-14.5); Red Blood Cell (RBC) Count 3.39 mill/uL (4.70-6.10); White Blood Cell (WBC) Count 10.7 thou/uL (4.8-10.8)
[2020-06-30 05:40] LABS: Anion Gap 12 mmol/L (10-20); BUN (Urea Nitrogen) 21 mg/dL (8.4-25.7); Calc. Creatinine Clearance 122 mL/min (70-130); Calcium 9.4 mg/dL (7.8-10.44); Carbon Dioxide 24 mmol/L (23-31); Chloride 104 mmol/L (98-107); Glucose 106 mg/dL (80-115); Potassium 4.2 mmol/L (3.5-5.1); Sodium 136 mmol/L (136-145)
--- NOTE | 2020-06-30 07:08 | PDOC.FM ---
- Subjective Subjective: Mr. Manuel is doing well this morning. He is eager to go home. - Objective Vital Signs & Weight: Vital Signs (12 hours) Temp Pulse Resp BP Pulse Ox 06/30/20 04:00 97.7 F 75 20 92 L 06/29/20 20:50 95 06/29/20 20:00 97.4 F L 82 22 H 123/68 95 Weight Admit Weight 108.409 kg Weight 108.091 kg Most Recent Monitor Data Heart Rate from ECG 70 NIBP 137/82 NIBP BP-Mean 100 Respiration from ECG 26 SpO2 96 I&O: 06/29/20 06/30/20 07/01/20 06:59 06:59 06:59 Intake Total 1310 Output Total 350 1100 Balance -350 210 Result Diagrams: 06/30/20 04:39 06/30/20 04:39 EKG Reviewed by me: Yes (tele: SR 60-70s) Phys Exam - Physical Examination Constitutional: NAD HEENT: moist MMs, sclera anicteric Neck: full ROM Respiratory: no wheezing, no rales, no rhonchi, clear to auscultation bilateral Cardiovascular: RRR, no significant murmur Gastrointestinal: soft, non-tender Musculoskeletal: no edema, pulses present Neurological: non-focal, moves all 4 limbs Psychiatric: normal affect, A&O x 3 Skin: no rash Dx/Plan - Plan Plan: 64 yo M with hx of recent CABG x4 here for acute hypoxic repiratory failure 2/2 to COVID PNA. #Acute hypoxic respiratory failure 2/2 COVID PNA -Sxs 06/25, COVID+ 06/26 -Ddimer 3.72-CTA negative for PE but suspicious for COVID findings -s/p vanc & rocephin. Procal 0.07. LDH 555, Ferritin 3315, CRP 8.33 -Continue steroids, s/p convalescent plasma, Last dose of remdesivir today (06/26) -Has been weaned to 1.5L NC. Continue to wean as tolerated. #HFpEF - EF 55-60% on 06/09/20. Euvolemic. Lasix PRN. #Indeterminate troponin -EKG: with Q waves in III, aVF. No major ST/T wave changes. >.056, lower than it has been previously. Suspect demand ischemia from recent CABG end of May. Will trend with tele monitoring. #Anemia - Hb 9.4. No signs of overt bleeding. At baseline, monitor. #Hx of CABG x4 complicated by recurrent bleeding - Underwent CABG on 06/06/20 for severe CAD which was complicated by intrathoracic bleeding requiring OR mediastinal exploration x2. Continue ASA. #CKD - at baseline, continue to monitor #Afib - Rate controlled. Continue Toprol. #Hx of lacunar infarct - No FND. Stable. #HTN - Stable, monitor #HLD - Home meds #DM2 - Sliding scale #GERD - Home protonix PCP: Dr. Nahun Souza GI ppx: Protonix Dvt ppx: lovenox 40mg Code: Full Dispo: Discharge home today following 5th dose of remdesivir. Addendum - Attending - Attending Attestation Date/Time: 06/30/20 3293 I personally evaluated the patient and discussed the management with Dr. Bhatt. I agree with the History, Examination, Assessment and Plan documented above with any addition or exceptions noted below. d/c after remdesivir dose today.
[2020-06-30] MEDS: Cholecalciferol 1,000 UNITS (25 MCG) TAB PO SCH (08:39)
[2020-06-30] MEDS: Cyclobenzaprine 10 MG TAB PO SCH ×2 (08:39→14:18)
[2020-06-30] MEDS: Dexamethasone 4 mg/ml Vial SLOW IVP SCH (08:39)
[2020-06-30] MEDS: Aspirin 325 mg Enteric Coated Tablet PO SCH (08:39)
[2020-06-30] MEDS: Ferrous Sulfate 325 MG TAB PO SCH (08:39)
[2020-06-30] MEDS: Loratadine 10 MG TAB PO SCH (08:40)
[2020-06-30] MEDS: Enoxaparin Sodium 40 MG/0.4 ML SYRINGE SC SCH (08:40)
[2020-06-30] MEDS: Escitalopram Oxalate 20 mg Tablet PO SCH (08:40)
[2020-06-30] MEDS: Fenofibrate Nanocrystallized 145 MG TAB PO SCH (08:40)
[2020-06-30] MEDS: guaiFENesin ER 600 MG TAB PO SCH (08:40)
[2020-06-30] MEDS: Potassium Chloride 20 MEQ TAB PO SCH (08:41)
[2020-06-30] MEDS: Non-Formulary Item 1 EACH (Omega-3 Acid Ethyl Esters [Lovaza] 1 GM Capsule) PO SCH (08:41)
[2020-06-30] MEDS ORDERED: Fish Oil 1,000 MG CAP PO SCH (09:00)
[2020-06-30] MEDS ORDERED: REMDESIVIR (EUA) 100 MG in Sodium Chloride 0.9% 250 ML 230 ML IV SCH (15:00)
[2020-06-30 17:11] VITALS: BP 132/63; TEMP 97.6
== END 2020-06-30 17:13 | disposition home health service (06) | DRG 177 ==
LOC: ERS 10:16 → ERHOLD 11:28 → 2SW 17:59
PROVIDERS: ADMIT Emergency Medicine; ATTEND Emergency Medicine
PROC: XW13325 Transfusion of Convalescent Plasma (Nonautologous) into Peripheral Vein, Percutaneous Approach, New Technology Group 5 (ICD-10-PCS; principal; 2020-06-26)
PROC: XW033E5 Introduction of Remdesivir Anti-infective into Peripheral Vein, Percutaneous Approach, New Technology Group 5 (ICD-10-PCS; 2020-06-26)
DX: U07.1 COVID-19 (principal); J96.01 Acute respiratory failure with hypoxia; J12.82 Pneumonia due to coronavirus disease 2019; I50.32 Chronic diastolic (congestive) heart failure; I13.0 Hypertensive heart and chronic kidney disease with heart failure and stage 1 through stage 4 chronic kidney disease, or unspecified chronic kidney disease; I24.8 Other forms of acute ischemic heart disease; K21.9 Gastro-esophageal reflux disease without esophagitis; I48.91 Unspecified atrial fibrillation; E78.5 Hyperlipidemia, unspecified; D64.9 Anemia, unspecified; N18.9 Chronic kidney disease, unspecified; E11.22 Type 2 diabetes mellitus with diabetic chronic kidney disease; E78.00 Pure hypercholesterolemia, unspecified; Z90.49 Acquired absence of other specified parts of digestive tract; Z98.890 Other specified postprocedural states; Z88.2 Allergy status to sulfonamides; Z91.018 Allergy to other foods; Z95.1 Presence of aortocoronary bypass graft; Z79.01 Long term (current) use of anticoagulants; Z79.899 Other long term (current) drug therapy; Z86.73 Personal history of transient ischemic attack (TIA), and cerebral infarction without residual deficits; Z95.5 Presence of coronary angioplasty implant and graft; Z82.49 Family history of ischemic heart disease and other diseases of the circulatory system; Z87.891 Personal history of nicotine dependence
CPT/HCPCS: 36415; 36416; 36430; 80048; 80076; 82728; 83615; 84145; 85025; 86140; 86850; 86900; 86901; 96374; J1100; J1650; J7050; P9017

== ENCOUNTER 2020-07-18 20:26 | Inpatient (IN) | payer MEDICARE, OTHER ==
[2020-07-18 21:47] LABS: ALT (SGPT) 17 U/L (8-55); AST (SGOT) 21 U/L (5-34); Albumin 3.1 g/dL (3.4-4.8); Alkaline Phosphatase 74 U/L (40-110); Anion Gap 16 mmol/L (10-20); BUN (Urea Nitrogen) 24 mg/dL (8.4-25.7); Bilirubin, Total 0.6 mg/dL (0.2-1.2); Calc. Creatinine Clearance 0 mL/min (70-130); Calcium 9.2 mg/dL (7.8-10.44); Carbon Dioxide 18 mmol/L (23-31); Chloride 108 mmol/L (98-107); Globulin 3.3 g/dL (2.4-3.5); Glucose 103 mg/dL (80-115); Protein, Total 6.4 g/dL (5.8-8.1); Sodium 138 mmol/L (136-145)
[2020-07-18 22:07] LABS: Band 16 % (5-11); Eosinophils 3 % (0-10); Hemoglobin 12.8 g/dL (14.0-18.0); Lymphocytes 8 % (21-51); MDiff Complete? YES; Mean Corpuscular HGB CONC 32.3 g/dL (32.0-36.0); Mean Corpuscular Hemoglobin 31.6 pg (27.0-31.0); Mean Corpuscular Volume 97.8 fL (78.0-98.0); Monocytes 7 % (0-10); Neutrophil 66 % (42-75); Platelet Count 264 thou/uL (130-400); RBC Distribution Width 14.9 % (11.5-14.5); Red Blood Cell (RBC) Count 4.05 mill/uL (4.70-6.10); White Blood Cell (WBC) Count 20.3 thou/uL (4.8-10.8)
[2020-07-18] MEDS ORDERED: Piperacillin/Tazobactam 3.375 GM VIAL ONE (22:07)
[2020-07-18] MEDS ORDERED: Vancomycin 1.5 GRAM/300 ML BAG 1.5 GM in Premix Bag 1 BAG IVPB SCH (23:15)
[2020-07-19] MEDS ORDERED: D5 1/2 NS w/20 mEq KCL 1,000 ML IV SCH (01:15)
[2020-07-19] MEDS ORDERED: Ondansetron ODT 4 MG TAB SL PRN (01:30)
[2020-07-19] MEDS ORDERED: Ondansetron PF 4 MG/2 ML Vial IVP PRN (01:30)
[2020-07-19 02:46] LABS: SARS-CoV-2 NAA Rapid Test DETECTED (NotDetected)
[2020-07-19] MEDS ORDERED: Piperacillin/Tazobactam 3.375 GM in Sodium Chloride 0.9% 100 ML IVPB SCH (06:00)
--- NOTE | 2020-07-19 08:00 | RAD ---
XR Chest 1 View Portable HISTORY: Sternal wound infection. COMPARISON: 06/26/2020 exam. FINDINGS: Heart size is enlarged with postop sternotomy changes. Pulmonary vessels appear mildly engo rged. There are some increased interstitial markings. Some of this could be related to edema versus chronic change. The appearance is fairly similar to the previous exam. Some of these changes are more peripheral in orientation and Covid pneumonia would have to be a consideration IMPRESSION: Essentially stable exam.
--- NOTE | 2020-07-19 09:12 | CON ---
DATE OF CONSULTATION: HISTORY OF PRESENT ILLNESS: This is a pleasant unfortunate gentleman, admitted in May of last year with a non-STEMI, was taken to the operating room on 06/06, where he underwent coronary artery bypass grafting with a PATE to the LAD and a radial to diagonal saphenous vein to an obtuse marginal and a PDA. Unfortunately, he required mediastinal exploration for bleeding before he could leave the operating room with no obvious source seeing and then he returned several hours later with bleeding from his distal circumflex. Postoperatively, he was somewhat slow to progress, but ultimately was discharged from the hospital on 06/16. He was readmitted on 06/26 with positive COVID infection after his had tested positive several days earlier. Unfortunately, he had some respiratory distress and required admission to the hospital for about 5 days. He then was discharged home and did well until last night when he noted some drainage, where he described pink fluid coming from his sternal wound. PAST MEDICAL HISTORY: Includes diabetes mellitus, obesity, hypertension. He has a past medical history of diverticulitis with multiple abdominal wall infections, which have continued to be a problem and he has a large ventral hernia as a result. MEDICATIONS: Medications are uncertain at this time with the list in the emergency room being probably incorrect. PHYSICAL EXAMINATION: GENERAL: He is alert, cooperative gentleman, in no distress. He has two small openings in the lower part of his chest incision with purulent drainage being present. He has no associated cellulitis. Difficult to assess the sternal stability, but suspect he is unstable. EXTREMITIES: Lower extremities are without edema. PLAN: At this time is for I and D of his sternal wound infection, which I expect will involve opening the entire incision and probably placing a wound VAC. I have discussed this with the patient and he has consented to this. Of note, his laboratory values show a white count of 20,000, and his chest x-ray is pending. Job ID: [id number] [facility]
[2020-07-19] MEDS ORDERED: Midazolam HCl 2 mg/2 ml Vial ONE ×2 (11:36→13:21)
[2020-07-19] MEDS ORDERED: Fentanyl 100 MCG/2 ML VIAL ONE (11:36)
[2020-07-19] MEDS ORDERED: Dextrose 50% Abboject 50 ML SYRINGE SLOW IVP PRN (13:05)
[2020-07-19] MEDS ORDERED: Insulin Regular 300 UNITS/3 ML VIAL SC PRN (13:05)
[2020-07-19] MEDS ORDERED: Dextrose 5% in Water 1,000 ML IV PRN (13:05)
[2020-07-19] MEDS ORDERED: Acetaminophen 325 MG TAB PO PRN (13:05)
[2020-07-19] MEDS ORDERED: Norepinephrine 8 MG/0.9% NS 250 ML IVPB PRN (13:05)
--- NOTE | 2020-07-19 13:45 | RAD ---
XR Chest 1 View Portable HISTORY: Respiratory distress. Sternal wound infection. COMPARISON: Chest x-ray exam done earlier today. FINDINGS: The sternotomy wires have been removed. Endotracheal tube is present the tip is at the leve l the jose directed slightly towards the right mainstem bronchus and could be retracted approximately 2 cm for more optimal placement. Right-sided central line is present catheter tip overl ies the superior vena cava. A right chest tube is seen along the lateral aspect of the right lung. The interstitial alveolar lung changes show slightly more confluent changes within the right upper lo be. Also slightly more prominent changes in the right infrahilar region. IMPRESSION: Interval removal of sternotomy wires. Endotracheal tube is at the level the jose could be retracted approximately 2 to 3 cm. Slight increase in the parenchymal lung markings in the right upper and lower lung zones.
[2020-07-19] MEDS ORDERED: Fentanyl CADD 100 ML ONE (13:50)
[2020-07-19 13:55] LABS: Hemoglobin 12.1 g/dL (14.0-18.0); Mean Corpuscular HGB CONC 33.6 g/dL (32.0-36.0); Mean Corpuscular Hemoglobin 33.4 pg (27.0-31.0); Mean Corpuscular Volume 99.4 fL (78.0-98.0); Mean Platelet Volume 9.3 fL (7.4-10.4); Platelet Count 200 thou/uL (130-400); RBC Distribution Width 14.8 % (11.5-14.5); Red Blood Cell (RBC) Count 3.64 mill/uL (4.70-6.10); White Blood Cell (WBC) Count 11.6 thou/uL (4.8-10.8)
[2020-07-19] MEDS: Sodium Chloride 0.9% 1,000 ML IV SCH ×2 (13:58→21:25)
[2020-07-19] MEDS ORDERED: Ventilator Sedation Protocol 1 EACH FS SCH (14:00)
[2020-07-19 14:09] LABS: Actual Bicarbonate (HCO3a) 19.2 mEq/L (22-28); Base Excess (BEa) -9.3 mEq/L (-2.0 to +3.0); CO2 Tension 52.8 mmHg (35.0-45.0); Calcium, Ionized (arterial) 1.36 mmol/L (1.12-1.30); Carboxyhemoglobin (COHb) 0.8 gm% (0.0-3.0); Hemoglobin (Hb) 13.2 g/dL (14.0-18.0); O2 Tension (PaO2), arterial 73.4 mmHg (> 80.0); Potassium - ABG Lab 4.03 mmol/L (3.70-5.30)
[2020-07-19 14:11] LABS: pH, Arterial 7.18 (7.35-7.45)
[2020-07-19 14:12] LABS: Puncture Site RBA
[2020-07-19 14:14] LABS: Anion Gap 16 mmol/L (10-20); BUN (Urea Nitrogen) 21 mg/dL (8.4-25.7); Calc. Creatinine Clearance 76 mL/min (70-130); Calcium 9.5 mg/dL (7.8-10.44); Carbon Dioxide 17 mmol/L (23-31); Chloride 110 mmol/L (98-107); Glucose 111 mg/dL (80-115); Potassium 4.2 mmol/L (3.5-5.1); Sodium 139 mmol/L (136-145)
[2020-07-19] MEDS ORDERED: Lorazepam 2 MG/ML VIAL SLOW IVP PRN (14:15)
[2020-07-19] MEDS ORDERED: Propofol 1,000 MG/100 ML VIAL IV PRN (14:15)
[2020-07-19] MEDS ORDERED: Morphine 2 MG/ML VIAL SLOW IVP PRN (14:15)
[2020-07-19] MEDS ORDERED: Fentanyl BOLUS 250 ML IVPB PRN (14:15)
[2020-07-19] MEDS ORDERED: Fentanyl CADD 100 ML IV SCH (14:15)
[2020-07-19] MEDS ORDERED: Propofol BOLUS 1,000 MG/100 ML VIAL IV PRN (14:15)
[2020-07-19] MEDS ORDERED: DISCONTINUE PREVIOUS NARCOTIC PAIN MEDICATIONS AND BENZODIAZEPINES FS SCH (14:15)
[2020-07-19] MEDS: Piperacillin/Tazobactam 3.375 GM in Sodium Chloride 0.9% 100 ML IVPB SCH ×2 (14:19→20:35)
[2020-07-19 14:20] LABS: Band 29 % (5-11); Eosinophils 6 % (0-10); Lymphocytes 1 % (21-51); MDiff Complete? YES; Macrocytosis SLIGHT = 6-15 cells (100X) (0-5/hpf); Monocytes 3 % (0-10); Neutrophil 59 % (42-75); Platelet Morphology Comment Appears Adequate; Polychromasia SLIGHT = 2-3 cells (100X) (0-2/hpf); Reactive Lymphocytes 2 % (0-10); Schistocytes SLIGHT = 2-5 cells (100X) (0-1/hpf); Target Cells SLIGHT = 2-5 cells (100X) (0-1/hpf)
[2020-07-19] MEDS: Vancomycin 1 GM in Premix Bag 1 BAG IVPB SCH (14:33)
[2020-07-19] MEDS ORDERED: Rocuronium Bromide 10 MG/ML (10ML VIAL) ONE (15:13)
[2020-07-19] MEDS ORDERED: PHENYLEPHRINE-NS 100 MCG/ML 10 ML SYRINGE ONE (15:13)
[2020-07-19] MEDS ORDERED: Ondansetron PF 4 MG/2 ML Vial ONE (15:13)
[2020-07-19] MEDS ORDERED: PROPOFOL 200 MG/20 ML VIAL ONE (15:13)
[2020-07-19] MEDS ORDERED: Calcium Chloride 1 GM/10 ML Abboject SYRINGE ONE (15:13)
[2020-07-19 17:56] LABS: Bacteria/HPF None Seen HPF (None Seen); Bilirubin Negative (Negative); Blood, Urine Negative (Negative); Clarity Clear (Clear); Glucose, Urine (Dipstick) Normal (Negative); Ketone, Urine Negative (Negative); Leukocyte Negative Leu/uL (Negative); Nitrite Negative (Negative); Protein, Urine (Dipstick) 20 mg/dL (Neg-Trace); RBC/HPF None Seen HPF (0-3); Specific Gravity, Urine 1.027 (1.002-1.036); Squamous Epithelial None Seen HPF (0-3); Urobilinogen Normal mg/dL (Less than 2); WBC/HPF 0-3 HPF (0-3)
[2020-07-19] MEDS ORDERED: Famotidine 20 MG TAB PO SCH (21:00)
[2020-07-19] MEDS: Famotidine/PF 20 mg/2ml Vial SLOW IVP SCH (21:40)
[2020-07-20] MEDS: Piperacillin/Tazobactam 3.375 GM in Sodium Chloride 0.9% 100 ML IVPB SCH ×4 (01:32→20:57)
[2020-07-20] MEDS: Sodium Chloride 0.9% 1,000 ML IV SCH (01:33)
[2020-07-20] MEDS: Vancomycin 1 GM in Premix Bag 1 BAG IVPB SCH ×2 (03:53→15:09)
[2020-07-20 04:51] LABS: #Eosinphils 0.8 thou/uL (0.0-0.7); #Lymphocytes 0.5 thou/uL (1.20-3.40); #Monocytes 0.5 thou/uL (0.11-0.59); #Neutrophils 5.8 thou/uL (1.40-6.50); %Basophils 0.6 % (0.0-1.0); %Eosinophils 10.8 % (0.0-10.0); %Lymphocytes 6.1 % (21.0-51.0); %Monocytes 6.3 % (0.0-10.0); %Neutrophils 76.3 % (42.0-75.0); Hemoglobin 10.2 g/dL (14.0-18.0); Mean Corpuscular HGB CONC 32.9 g/dL (32.0-36.0); Mean Corpuscular Hemoglobin 32.7 pg (27.0-31.0); Mean Corpuscular Volume 99.2 fL (78.0-98.0); Mean Platelet Volume 9.1 fL (7.4-10.4); Platelet Count 195 thou/uL (130-400); RBC Distribution Width 14.6 % (11.5-14.5); Red Blood Cell (RBC) Count 3.13 mill/uL (4.70-6.10); White Blood Cell (WBC) Count 7.6 thou/uL (4.8-10.8)
[2020-07-20 05:00] LABS: Anion Gap 12 mmol/L (10-20); BUN (Urea Nitrogen) 20 mg/dL (8.4-25.7); Calc. Creatinine Clearance 92 mL/min (70-130); Calcium 8.9 mg/dL (7.8-10.44); Carbon Dioxide 20 mmol/L (23-31); Chloride 111 mmol/L (98-107); Glucose 89 mg/dL (80-115); Sodium 139 mmol/L (136-145)
--- NOTE | 2020-07-20 06:45 | OP ---
DATE OF PROCEDURE: 07/19/2020 PREOPERATIVE DIAGNOSIS: Sternal wound infection. POSTOPERATIVE DIAGNOSES: Sternal wound infection, possible sepsis syndrome. PROCEDURES PERFORMED: 1. Sternal incision and debridement. 2. Attempted placement of right subclavian triple lumen CVP and then placement of right internal jugular CVP, placement of right chest tube. ANESTHESIA: General. DESCRIPTION OF PROCEDURE: After adequate anesthesia had been obtained, an LMA had been placed. The sternal wound incision was opened eventually to the top to the bottom of the incision. Cultures were obtained of some purulent fluid. The sternum was dehisced with bone separation about 2 or 3 mm and all wires were loose but intact. The wires were all removed, and the anterior table of the sternum debrided with a rongeur and curette. After irrigation, wound VAC was placed. Following this, attempted placement of a right subclavian CVP for pressor agent infusion was not successful and on puncture, some air was aspirated. Due to the patient's marginal pulmonary function coming into the room with tachypnea and recent history of COVID, it was elected to place a chest tube without obtaining a chest x-ray plus it appeared that the patient would need to be ventilated and there was concern that if he had a small pneumothorax it would enlarge. Following placement of a 28 chest tube, initially trying to place it along the anterior axillary line below the breast; however, I could not enter a free pleural space, and it appeared the lung was adherent in this region. Third intercostal space, #28 tube was placed in the mid clavicular line. Following this, a right internal jugular central lumen triple-lumen CVP was placed with ultrasound assistance using needle, wire, dilator, and catheter. There was good blood return. Wounds were dressed, and the patient's LMA was exchanged for an endotracheal tube, and he is to be taken to the ICU. Estimated blood loss minimal. Job ID: [id number]
--- NOTE | 2020-07-20 07:21 | PRG ---
DATE OF SERVICE: 07/20/2020 Postoperative day #1 from sternal debridement. He remains intubated, is awake and seems to be comfortable. His blood pressure is about 100 on fentanyl infusion. Urine output has been good at 30 to 50 mL/h. Chest x-ray shows diffuse infiltrates and his O2 saturation is 97%. His electrolytes show some improvement in his metabolic acidosis and his creatinine has decreased to 1.1. His white count has dropped from 20,000 to 7600 and his hemoglobin has decreased from 12 to 10. His chest tube output is minimal from his chest tube on the right hemithorax. Although, he looks comfortable, his x-ray does not look very good and it is not clear to me whether this is ARDS from sepsis or perhaps COVID related. We will follow up on his cultures, but this appears that it will be a staph species and we would just have to wait and see whether it is sensitive to anything with vancomycin. Job ID: [id number]
--- NOTE | 2020-07-20 07:43 | RAD ---
Portable frontal chest radiograph: 07/20/2020 COMPARISON: 07/19/2020 HISTORY: Respiratory failure FINDINGS: Stable endotracheal tube tube and right vascular catheter. There is a right chest tube whic h appears kinked. There is prominence of the cardiac silhouette. There is hazy nonspecific interstitial and alveolar opacity in the perihilar regions and both lung bases, left greater than rig ht, not significantly changed. Slight blunting of bilateral costophrenic angles may signify small volume pleural fluid and/or pleural thickening. IMPRESSION: Portable chest radiograph as detailed above.
[2020-07-20] MEDS ORDERED: Fentanyl CADD 100 ML ONE (08:38)
[2020-07-20] MEDS: Famotidine/PF 20 mg/2ml Vial SLOW IVP SCH ×2 (08:49→20:57)
[2020-07-20] MEDS: Enoxaparin Sodium 40 MG/0.4 ML SYRINGE SC SCH (08:49)
[2020-07-20] MEDS: Lactated Ringer's 1,000 ML IV SCH (09:10)
--- NOTE | 2020-07-20 09:32 | CON ---
DATE OF CONSULTATION: 07/20/2020 HISTORY OF PRESENT ILLNESS: Mr. Manuel is a 64-year-old male, who went to the OR for drainage of a sternal wound infection. Perioperatively, he was intubated and left intubated. PAST MEDICAL HISTORY: Remarkable for: 1. Coronary artery bypass grafting in June. 2. History of COVID pneumonia. 3. History of anemia. 4. History of atrial fibrillation. 5. History of CVA in the past. 6. Hypertension. 7. Lipid disorder. 8. Diabetes. 9. History of reflux disease. FAMILY HISTORY: Negative for lung disease in early age. REVIEW OF SYSTEMS: Not obtainable. PHYSICAL EXAMINATION: GENERAL: Will awaken. VITAL SIGNS: Respiratory rates in the 20s, FiO2 is 50, blood pressure 108/66. HEAD AND NECK: Unremarkable. He has wound VAC on his chest. LUNGS: Remarkable for equal breath sounds. HEART: Regular rhythm. ABDOMEN: Soft and nontender. EXTREMITIES: Without clubbing, cyanosis, or edema. LABORATORY DATA: White count 7.6, hemoglobin 10.2, and platelets 195. Electrolytes are unremarkable except for mild hyperchloremia. IMPRESSION: Sternal wound infection. Chest radiograph today is improved compared to yesterday. I suspect he had a component of noncardiogenic edema with his infection and this appears to be improving. Hopefully, we can get him extubated by tomorrow morning. He has grown Staph from his wound, but nothing else. We will follow. Critical care time 30 min. Job ID: [id number] [facility]TD[facility]
[2020-07-21] MEDS: Vancomycin 1 GM in Premix Bag 1 BAG IVPB SCH ×2 (02:11→15:40)
[2020-07-21] MEDS: Piperacillin/Tazobactam 3.375 GM in Sodium Chloride 0.9% 100 ML IVPB SCH (02:11)
[2020-07-21 04:38] LABS: #Lymphocytes 0.6 thou/uL (1.20-3.40); #Monocytes 0.6 thou/uL (0.11-0.59); #Neutrophils 4.7 thou/uL (1.40-6.50); %Basophils 0.1 % (0.0-1.0); %Eosinophils 14.4 % (0.0-10.0); %Lymphocytes 9.1 % (21.0-51.0); %Monocytes 8.3 % (0.0-10.0); Hemoglobin 10.1 g/dL (14.0-18.0); Mean Corpuscular HGB CONC 32.6 g/dL (32.0-36.0); Mean Corpuscular Hemoglobin 31.9 pg (27.0-31.0); Mean Corpuscular Volume 98.1 fL (78.0-98.0); Mean Platelet Volume 8.3 fL (7.4-10.4); Platelet Count 226 thou/uL (130-400); RBC Distribution Width 14.4 % (11.5-14.5); Red Blood Cell (RBC) Count 3.16 mill/uL (4.70-6.10); White Blood Cell (WBC) Count 6.9 thou/uL (4.8-10.8)
[2020-07-21] MEDS: Lactated Ringer's 1,000 ML IV SCH ×2 (04:48→23:25)
[2020-07-21 04:55] LABS: Anion Gap 10 mmol/L (10-20); BUN (Urea Nitrogen) 15 mg/dL (8.4-25.7); Calc. Creatinine Clearance 96 mL/min (70-130); Calcium 8.9 mg/dL (7.8-10.44); Carbon Dioxide 23 mmol/L (23-31); Chloride 110 mmol/L (98-107); Glucose 128 mg/dL (80-115); Potassium 3.8 mmol/L (3.5-5.1); Sodium 139 mmol/L (136-145)
--- NOTE | 2020-07-21 07:39 | PRG ---
DATE OF SERVICE: 07/21/2020 Postoperative day #2 following a sternal I and D. He self-extubated this morning about 04:00 a.m. and is doing well in this regard. His chest x-ray is slightly improved from immediately postoperative. Chest tube output is minimal. No air leak. Hemoglobin is stable at 10. His white count is normal at 6.9. His creatinine is normalized at 1. His sugars have been good. His lungs have a few scattered rhonchi, but has good breath sounds bilaterally. His chest tube was removed without difficulty. His cultures are methicillin-resistant Staph aureus, so we will stop the piperacillin and continue the vancomycin and ask Dr. Gerard for his input and recommendations in regard to long-term treatment. We will plan on wound VAC treatment for now. Job ID: [id number]
--- NOTE | 2020-07-21 09:38 | RAD ---
PORTABLE CHEST: Date: 07/21/2020 PROVIDED CLINICAL HISTORY: Pneumonia. FINDINGS: Comparison made with the study dated 07/20/2020. Interval removal of endotracheal tube. Additional significant interval change with respect to the magaly or examination is not apparent. IMPRESSION: As above. POS: SOPHIE
[2020-07-21] MEDS: Metoprolol Tartrate 25 MG TAB PO SCH ×2 (11:57→20:33)
[2020-07-21] MEDS: Aspirin 81 mg Enteric Coated Tablet PO SCH (11:57)
[2020-07-21] MEDS: Enoxaparin Sodium 40 MG/0.4 ML SYRINGE SC SCH (12:12)
[2020-07-21] MEDS: Famotidine/PF 20 mg/2ml Vial SLOW IVP SCH ×2 (12:12→20:33)
[2020-07-21] MEDS: Acetaminophen 650 MG/20.3 ML UDCUP PO PRN (12:12)
--- NOTE | 2020-07-21 12:17 | PRG ---
DATE OF SERVICE: 07/21/2020 SUBJECTIVE: Guido Manuel extubated himself this morning. OBJECTIVE: VITAL SIGNS: Oximetry is 95, FiO2 is 50% on face mask, heart rate is 118, blood pressure 118/92. LUNGS: Clear. HEART: Regular rate and rhythm. ABDOMEN: Soft and nontender. He has his wound VAC in place. IMAGING AND LABORATORY DATA: Chest radiograph is essentially unchanged. His chest tube has been removed by Dr. Johnston this morning. White count 6.9, hemoglobin 10.1, platelets 226. Sodium 139, potassium 3.8, chloride 110, bicarb 23, BUN 15, creatinine 1.06. IMPRESSION: Status post mechanical ventilation for drainage of his sternal wound infection. This is an oxacillin-resistant Staph. Dr. Gerard has been consulted. He will need a PICC line and prolonged period of vancomycin. I suspect his radiographic abnormalities were just mild ARDS. Clinically, he appears to be improving and has tolerated extubation. He is a little hoarse as expected, but nothing else that is worrisome at this time. We will continue supportive care. Job ID: [id number]
[2020-07-21 14:32] LABS: Vancomycin, Trough 20.8 ug/mL
--- NOTE | 2020-07-21 17:27 | CON ---
DATE OF CONSULTATION: 07/21/2020 REASON FOR CONSULTATION: Sternotomy site infection. HISTORY OF PRESENT ILLNESS: A 64-year-old patient who has a history of coronary artery disease with [id number] elevation DC, which led to evaluation and the establishment of triple-vessel disease, which was managed with bypass graft surgery by Dr. Johnston. The procedure was carried out on June 07. He had quite a bit of bleeding, had to be taken back to the OR for management of that and then he was diagnosed with COVID-19 at the end of June, moderate case. He did receive remdesivir and Decadron for a period of time and now is admitted with purulent drainage from the sternotomy site, had debridement of the sternotomy. All the wires had been removed and the sternal bone was debrided. There was an accidental puncture of the left lung. He had a chest tube placed for a period of time. The patient is in the intensive care unit now. He is awake and alert. He has minimal pain. No headaches. No shortness of breath. He has a Ventimask in place. No abdominal pain. He has an indwelling Zayas catheter and has a right-sided IJ triple-lumen catheter. PAST MEDICAL HISTORY: Includes GERD, hyperlipidemia, DC x3, hypertension, triple-vessel disease by angiogram, he has had angioplasty in the past, ruptured colon in 2006, not clear how high it ruptured, cardiac bypass graft surgery x4, tonsillectomy. SOCIAL HISTORY: Never smoker. ALLERGIES: COCONUT, CYCLOBENZAPRINE, SULFA DRUGS. CURRENT MEDICATIONS: 1. Dextrose. 2. Enoxaparin. 3. Vancomycin. 4. Levophed. 5. Metoprolol. 6. Insulin. PHYSICAL EXAMINATION: VITAL SIGNS: T-max was 101 just recently, blood pressure 107/62, heart rate 77, FiO2 of 50. SKIN: Shows the sternotomy site with a negative pressure dressing. The picture of the wound with the usual findings, some fatty tissue, but mostly healthy red tissue. No erythema around the incision. HEENT: Ocular movements are conjugate. No lymphadenopathy. Oral cavity normal. LUNGS: Clear to auscultation and percussion, maybe decreased breath sounds on the left side. HEART: S1, S2. Regular rate. No S3 or S4. There is a chest tube on the right side. : Zayas catheterization. ABDOMEN: Soft. Not distended or tender. No ascites. No bladder distention. EXTREMITIES: He moves extremities equally. No edema. Pulses 1+ in dorsalis pedis. NEUROLOGIC: Awake, oriented, follows commands. LABORATORY DATA: White cell count is down to 6.9, hemoglobin 10.1, platelets 226, 68% neutrophils. Sodium 139, creatinine 1.06. His bilirubin was normal. Other transaminases normal. Alkaline phosphatase normal. Albumin 3.1. Urinalysis was normal. He had a repeat SARS-CoV-2 test done, which was positive. Previous one was done in [facility], it was PCR positive test, which led to readmission. 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 He has a negative pressure dressing overlying the site and he is on vancomycin. So, this is the 24th day after the original development of symptoms related to his COVID-19, so he is not considered infectious anymore and this is a resolved process, still with the aftermath of the inflammatory process, and now on top of this, he has this complication and has had surgical intervention, is requiring some significant O2 supplementation at this point in time. Should be able to manage this without any further intervention for the COVID-19, and he will need to continue vancomycin or daptomycin for 42 days, the end date of therapy is estimated around September 02. Weekly labs including CBC, CRP, and CPK as well as basic metabolic panel. Job ID: [id number]
[2020-07-21] MEDS: Rosuvastatin 20 MG TAB PO SCH (20:33)
[2020-07-22] MEDS: Vancomycin 1 GM in Premix Bag 1 BAG IVPB SCH ×2 (03:30→15:25)
[2020-07-22 04:32] LABS: Anion Gap 9 mmol/L (10-20); BUN (Urea Nitrogen) 9 mg/dL (8.4-25.7); Calc. Creatinine Clearance 135 mL/min (70-130); Calcium 8.5 mg/dL (7.8-10.44); Carbon Dioxide 24 mmol/L (23-31); Chloride 106 mmol/L (98-107); Glucose 110 mg/dL (80-115); Potassium 3.3 mmol/L (3.5-5.1); Sodium 136 mmol/L (136-145)
[2020-07-22 04:53] LABS: Band 7 % (5-11); Eosinophils 8 % (0-10); Hemoglobin 9.5 g/dL (14.0-18.0); Hypochromia SLIGHT = 6-15 cells (100X) (0-5/hpf); Lymphocytes 6 % (21-51); MDiff Complete? YES; Mean Corpuscular HGB CONC 32.3 g/dL (32.0-36.0); Mean Corpuscular Hemoglobin 31.2 pg (27.0-31.0); Mean Corpuscular Volume 96.6 fL (78.0-98.0); Mean Platelet Volume 8.1 fL (7.4-10.4); Monocytes 10 % (0-10); Neutrophil 69 % (42-75); Platelet Count 226 thou/uL (130-400); Platelet Morphology Comment Appears Adequate; RBC Distribution Width 14.2 % (11.5-14.5); Red Blood Cell (RBC) Count 3.03 mill/uL (4.70-6.10); White Blood Cell (WBC) Count 8.1 thou/uL (4.8-10.8)
[2020-07-22] MEDS: Metoprolol Tartrate 25 MG TAB PO SCH ×2 (08:15→20:20)
[2020-07-22] MEDS: Famotidine/PF 20 mg/2ml Vial SLOW IVP SCH (08:15)
[2020-07-22] MEDS: Aspirin 81 mg Enteric Coated Tablet PO SCH (08:15)
[2020-07-22] MEDS: Enoxaparin Sodium 40 MG/0.4 ML SYRINGE SC SCH (08:15)
--- NOTE | 2020-07-22 08:29 | PRG ---
DATE OF SERVICE: The patient has remained afebrile with stable vital signs. His O2 sats decrease when he takes his oxygen off, but is currently on nasal cannula O2. He is comfortable, pleasant this morning, although still in restraints. His lungs are clear anteriorly, although he does have a semi-productive cough. The wound VAC is intact. He has no peripheral edema. Plan at this time will be to transfer him to the floor and see if we can make some progress with physical therapy. He will probably need a PICC line for his IV vancomycin and outpatient wound VAC. Job ID: [id number]
[2020-07-22] MEDS ORDERED: Haloperidol Lactate 5 MG/ML VIAL IM PRN (10:44)
--- NOTE | 2020-07-22 11:08 | PRG ---
DATE OF SERVICE: 07/22/2020 SUBJECTIVE: Guido Manuel is in no distress. OBJECTIVE: VITAL SIGNS: Heart rate is in the 90s, blood pressure 129/61, respiratory rate 18. GENERAL: He is a little confused this morning. LUNGS: Clear. HEART: Regular rhythm. ABDOMEN: Soft. EXTREMITIES: Without edema. A low dose of Haldol may help with his confusion. IMPRESSION: 1. Probable mild acute respiratory distress syndrome associated with staphylococcus surgical site infection that has been drained and now have a wound VAC in place. 2. Encephalopathy, likely secondary due to critical care unit. P.r.n. order of Haldol be added. Job ID: [id number] MTDD
[2020-07-22] MEDS: Rosuvastatin 20 MG TAB PO SCH (20:20)
[2020-07-22] MEDS: Lactated Ringer's 1,000 ML IV SCH (20:35)
[2020-07-23] MEDS: Vancomycin 1 GM in Premix Bag 1 BAG IVPB SCH ×2 (04:16→15:52)
[2020-07-23] MEDS: Aspirin 81 mg Enteric Coated Tablet PO SCH (08:28)
[2020-07-23] MEDS: Metoprolol Tartrate 25 MG TAB PO SCH ×2 (08:28→20:01)
[2020-07-23] MEDS: Enoxaparin Sodium 40 MG/0.4 ML SYRINGE SC SCH (08:28)
--- NOTE | 2020-07-23 19:26 | PRG ---
DATE OF SERVICE: 07/23/2020 SUBJECTIVE: Mr. Manuel is in bed. He is restrained since 12 o'clock today. The reason for that is because he is trying to remove his O2 nasal cannula supplementation, has done that a few times with resulting in drops in his O2 sats in the mid 80s. When I arrived in the room, he was saturating at 88%, but he did have his O2 nasal cannula in place. He is trying to remove his leg compression devices for DVT prophylaxis. Had pulled the left one and pulled almost half of the right one. He is obviously confused. He knew his name, but that is the extent of his orientation. He denied any chest pain. No abdominal pain. He does not have a Zayas catheter. His postvoid residual is adequate when measured this morning. OBJECTIVE: VITAL SIGNS: T-max of 101 two days ago. He is now 98.6. He is tachycardic at 101, has breathing at 20 to 24 times a minute. Nasal cannula 6 L/minute saturating a top is 95% to 96%, but he drops to 88% sometimes. LUNGS: Have scattered crackles at the bases. No wheezing. HEART: S1, S2. Regular rate. Mid sternotomy. Negative pressure dressing with no tenderness around the wound site. ABDOMEN: Soft, not distended. No bladder distention noted. He is able to move all extremities. He knows his name. He could not tell me where he was or the date. He was having some delusional thinking process. LABORATORY DATA: Sodium 136, creatinine 0.78. His last bilirubin was 0.6 five days ago. Transaminases were normal. White cell count is 8.1, hemoglobin 9.5, platelets 226 with 69% neutrophils, 7% bands. ASSESSMENT AND DISCUSSION: Hypertension, coronary artery disease, recent bypass graft surgery, moderate episode of COVID-19 at the end of June, now sternotomy site infection with MRSA. Delirium has developed and he has had drops in his O2 saturations. His O2 saturations have been around 94% to 96%, but he tends to remove his nasal cannula O2 supplementation. The degree of supplementation has ranged from 15 L down to 3 and now is up to 6, and I think probably for him the best option would be to have a sitter in the room with him rather than be restrained, but looks like they have limitation in number of sitters available. Nonetheless, he is to continue on vancomycin administration. The date of therapy is estimated around September 02. He is going to need a PICC line placed and right internal jugular central line removed. Again, the COVID-19 visit is just the aftermath of the original infection. Job ID: [id number]
[2020-07-23] MEDS: Rosuvastatin 20 MG TAB PO SCH (20:01)
[2020-07-23] MEDS: Acetaminophen 650 MG/20.3 ML UDCUP PO PRN (21:27)
[2020-07-24] MEDS: Vancomycin 1 GM in Premix Bag 1 BAG IVPB SCH ×2 (02:08→15:19)
[2020-07-24] MEDS: Aspirin 81 mg Enteric Coated Tablet PO SCH (09:42)
[2020-07-24] MEDS: Enoxaparin Sodium 40 MG/0.4 ML SYRINGE SC SCH (09:42)
[2020-07-24] MEDS: Metoprolol Tartrate 25 MG TAB PO SCH ×2 (09:42→20:50)
[2020-07-24] MEDS: Acetaminophen 650 MG/20.3 ML UDCUP PO PRN (12:27)
[2020-07-24 14:13] LABS: Vancomycin, Trough 15.9 ug/mL
[2020-07-24] MEDS: Rosuvastatin 20 MG TAB PO SCH (20:50)
[2020-07-25] MEDS: Vancomycin 1 GM in Premix Bag 1 BAG IVPB SCH ×2 (03:45→16:21)
--- NOTE | 2020-07-25 07:15 | PRG ---
DATE OF SERVICE: 07/25/2020 The patient is remained afebrile with stable vital signs, on low-dose metoprolol. His oxygen saturation is dependent on oxygen. He is not confused this morning, but generally is confused, but pleasant, generally speaking. His lungs are clear to auscultation anteriorly and his wound VAC is in place. He does not have any significant peripheral edema but is supine in bed. At this time, the patient needs to be treated with physical therapy. He will need placement until he is more independent and will consult Case Management in this regard. Job ID: [id number] MTDD
--- NOTE | 2020-07-25 08:19 | RAD ---
Exam: Chest one view HISTORY:Status post extubation. Hypoxia Comparison: 07/21/2020 FINDINGS: Cardiac silhouette:Megaly Aorta: Atherosclerosis Pulmonary vessels: Normal Costophrenic angles: Clear LUNGS: Multifocal interstitial and alveolar opacities. The degree of opacification has not significan tly changed. Pneumothorax: None Lines and tubes: Stable right jugular vascular catheter Osseous abnormalities: None IMPRESSION: No significant interval change
[2020-07-25] MEDS: Potassium Bicarbonate/Cit Ac 20 MEQ TAB PO SCH ×2 (08:20→16:30)
[2020-07-25] MEDS: Enoxaparin Sodium 40 MG/0.4 ML SYRINGE SC SCH (08:20)
[2020-07-25] MEDS: Aspirin 81 mg Enteric Coated Tablet PO SCH (08:20)
[2020-07-25] MEDS: Metoprolol Tartrate 25 MG TAB PO SCH ×2 (08:22→20:16)
[2020-07-25] MEDS ORDERED: Furosemide 20 MG TAB PO SCH (09:15)
--- NOTE | 2020-07-25 13:53 | PRG ---
DATE OF SERVICE: 07/25/2020 SUBJECTIVE: Guido Manuel is less encephalopathic when he was last week. OBJECTIVE: VITAL SIGNS: He is afebrile. Heart rate is 80, respiratory rate is 18, oximetry is 96% on 4 L, blood pressure is 112/70. LUNGS: Clear. HEART: Regular rhythm. ABDOMEN: Soft. IMPRESSION: 1. Sternal infection, now with wound VAC after debridement. 2. Mild noncardiogenic pulmonary edema associated with his Staph infection. 3. Encephalopathy, which appears to be improving. His hemoglobin is stable at 9.5 g on the . He has not had lab check since then. Reasonably check electrolytes in the morning, make sure his hemoglobin has not fallen any further. Job ID: [id number]
--- NOTE | 2020-07-25 15:29 | SPC ---
[facility] CVP LINE PICC INITAL >5 History: Need for long-term IV access Comparison: Chest radiograph same day Findings: Patient was brought to the special suite. All questions were answered. Informed consent obt ained. Timeout performed. The patient's left arm was prepped and draped in normal sterile fashion. Using ultrasound guidance th e left basilic vein was accessed. Over a wire and through a peel-away sheath a PICC was placed with tip at the inferior SVC. Patient tolerated the procedure well without complication. Impression: Technically successful ultrasound fluoroscopic guided PICC placement.
[2020-07-25] MEDS: Rosuvastatin 20 MG TAB PO SCH (20:16)
[2020-07-26] MEDS: Vancomycin 1 GM in Premix Bag 1 BAG IVPB SCH ×2 (03:58→16:20)
[2020-07-26 05:06] LABS: Band 4 % (5-11); Eosinophils 1 % (0-10); Hemoglobin 10.5 g/dL (14.0-18.0); Hypochromia SLIGHT = 6-15 cells (100X) (0-5/hpf); Lymphocytes 11 % (21-51); MDiff Complete? YES; Mean Corpuscular HGB CONC 33.3 g/dL (32.0-36.0); Mean Corpuscular Hemoglobin 31.5 pg (27.0-31.0); Mean Corpuscular Volume 94.5 fL (78.0-98.0); Mean Platelet Volume 8.2 fL (7.4-10.4); Monocytes 7 % (0-10); Neutrophil 73 % (42-75); Nucleated RBC 1 % (0); Platelet Count 336 thou/uL (130-400); Platelet Morphology Comment Appears Adequate; RBC Distribution Width 14.6 % (11.5-14.5); Reactive Lymphocytes 4 % (0-10); Red Blood Cell (RBC) Count 3.33 mill/uL (4.70-6.10); White Blood Cell (WBC) Count 10.2 thou/uL (4.8-10.8)
[2020-07-26 05:29] LABS: Anion Gap 13 mmol/L (10-20); BUN (Urea Nitrogen) 7 mg/dL (8.4-25.7); Calc. Creatinine Clearance 134 mL/min (70-130); Calcium 8.4 mg/dL (7.8-10.44); Carbon Dioxide 22 mmol/L (23-31); Chloride 103 mmol/L (98-107); Glucose 108 mg/dL (80-115); Sodium 135 mmol/L (136-145)
[2020-07-26 05:31] LABS: Potassium 2.9 mmol/L (3.5-5.1)
[2020-07-26] MEDS ORDERED: Potassium Chloride 20 MEQ TAB PO SCH ×2 (06:15→12:00)
[2020-07-26] MEDS ORDERED: Potassium Chloride 40 MEQ in Premix Bag 1 BAG IVPB SCH (06:15)
[2020-07-26] MEDS: Enoxaparin Sodium 40 MG/0.4 ML SYRINGE SC SCH (09:04)
[2020-07-26] MEDS: Aspirin 81 mg Enteric Coated Tablet PO SCH (09:04)
[2020-07-26] MEDS: Potassium Bicarbonate/Cit Ac 20 MEQ TAB PO SCH ×2 (09:04→16:12)
[2020-07-26] MEDS: Metoprolol Tartrate 25 MG TAB PO SCH ×2 (09:05→20:54)
[2020-07-26] MEDS: Loperamide HCl 2 MG CAP PO PRN (12:41)
[2020-07-26] MEDS: Rosuvastatin 20 MG TAB PO SCH (20:54)
[2020-07-27] MEDS ORDERED: Vancomycin HCl 1 GM in Sodium Chloride 0.9% 250 ML 250 ML IVPB SCH (03:00)
[2020-07-27 04:40] LABS: Band 11 % (5-11); Eosinophils 3 % (0-10); Hemoglobin 10.9 g/dL (14.0-18.0); Lymphocytes 14 % (21-51); MDiff Complete? YES; Mean Corpuscular HGB CONC 33.2 g/dL (32.0-36.0); Mean Corpuscular Hemoglobin 31.4 pg (27.0-31.0); Mean Corpuscular Volume 94.4 fL (78.0-98.0); Mean Platelet Volume 7.9 fL (7.4-10.4); Monocytes 5 % (0-10); Neutrophil 67 % (42-75); Platelet Count 366 thou/uL (130-400); Platelet Morphology Comment Appears Adequate; RBC Distribution Width 15.1 % (11.5-14.5); Red Blood Cell (RBC) Count 3.46 mill/uL (4.70-6.10); White Blood Cell (WBC) Count 11.9 thou/uL (4.8-10.8)
[2020-07-27 04:44] LABS: Anion Gap 12 mmol/L (10-20); BUN (Urea Nitrogen) 8 mg/dL (8.4-25.7); Calc. Creatinine Clearance 125 mL/min (70-130); Calcium 9.1 mg/dL (7.8-10.44); Carbon Dioxide 21 mmol/L (23-31); Chloride 108 mmol/L (98-107); Glucose 129 mg/dL (80-115); Sodium 137 mmol/L (136-145)
[2020-07-27] MEDS: Metoprolol Tartrate 25 MG TAB PO SCH ×2 (07:52→22:04)
[2020-07-27] MEDS: Aspirin 81 mg Enteric Coated Tablet PO SCH (07:52)
[2020-07-27] MEDS: Potassium Bicarbonate/Cit Ac 20 MEQ TAB PO SCH (07:52)
[2020-07-27] MEDS: Enoxaparin Sodium 40 MG/0.4 ML SYRINGE SC SCH (07:53)
[2020-07-27] MEDS: Loperamide HCl 2 MG CAP PO PRN ×2 (07:53→22:05)
--- NOTE | 2020-07-27 08:27 | PRG ---
DATE OF SERVICE: 07/27/2020 The patient remains afebrile, stable vital signs. He has no complaints this morning. He had some diarrhea yesterday and C difficile was negative. He did walk a short distance with physical therapy, but became dyspneic with this. On examination, he is alert and cooperative. His heart rates in the 90s. He is on nasal cannula O2 at the present time, which he has required in order to maintain sats above 90. Laboratory values show a slight increase in his white count for the past two days to a current level of 11.9 with a slight left shift. Hemoglobin is stable. His chemistries show improvement in his potassium level. Examination of his chest reveals intact wound VAC with no surrounding skin changes or erythema. He is nontender to palpation over his pectoralis area. His abdomen has the large scar in the midline extending laterally, but his abdomen is soft and nontender and his extremities are without edema. We will check his urinalysis today. I am not sure why his white count has changed slightly in the past 2 days. His jugular venous line has been removed and he has a new PICC line, so it is unlikely that either of these are sources. His wound of his chest is open and actually had minimal purulence at the time of surgery, so I do not think that this is a cause of active sepsis. Job ID: [id number]
[2020-07-27 14:50] VITALS: BMI 42.0
[2020-07-27] MEDS: Vancomycin 1 GM in Premix Bag 1 BAG IVPB SCH (15:35)
[2020-07-27] MEDS: Rosuvastatin 20 MG TAB PO SCH (22:04)
[2020-07-28] MEDS: Vancomycin 1 GM in Premix Bag 1 BAG IVPB SCH ×2 (03:09→13:18)
[2020-07-28 04:29] LABS: Band 2 % (5-11); Eosinophils 2 % (0-10); Hemoglobin 10.7 g/dL (14.0-18.0); Hypochromia SLIGHT = 6-15 cells (100X) (0-5/hpf); Lymphocytes 16 % (21-51); MDiff Complete? YES; Mean Corpuscular HGB CONC 31.8 g/dL (32.0-36.0); Mean Corpuscular Volume 94.4 fL (78.0-98.0); Mean Platelet Volume 8.2 fL (7.4-10.4); Monocytes 8 % (0-10); Neutrophil 71 % (42-75); Platelet Count 383 thou/uL (130-400); Platelet Morphology Comment Appears Adequate; RBC Distribution Width 15.4 % (11.5-14.5); Reactive Lymphocytes 1 % (0-10); Red Blood Cell (RBC) Count 3.56 mill/uL (4.70-6.10); White Blood Cell (WBC) Count 13.4 thou/uL (4.8-10.8)
[2020-07-28 04:42] LABS: Anion Gap 11 mmol/L (10-20); BUN (Urea Nitrogen) 7 mg/dL (8.4-25.7); Calc. Creatinine Clearance 134 mL/min (70-130); Calcium 8.7 mg/dL (7.8-10.44); Carbon Dioxide 22 mmol/L (23-31); Chloride 105 mmol/L (98-107); Glucose 143 mg/dL (80-115); Potassium 3.7 mmol/L (3.5-5.1); Sodium 134 mmol/L (136-145)
[2020-07-28] MEDS: Loperamide HCl 2 MG CAP PO PRN ×2 (06:42→11:11)
--- NOTE | 2020-07-28 08:14 | PRG ---
DATE OF SERVICE: 07/28/2020 SUBJECTIVE: The patient has been afebrile with stable vital signs, still requiring O2 supplement for decreased saturations. His wound VAC is intact this morning, although he did disconnect it 2 nights ago with some confusion. Skin edges look good. His lungs have some scattered rhonchi. He continues to be pleasant, but mildly confused and tends to run on with his thoughts from one subject to another. Awaiting disposition to home with IV antibiotics per Dr. Gerard's recommendations. He will receive outpatient wound VAC changes, and it is not clear to me at this time whether he will go to the hospital for wound VAC changes or have home health do it at his home. Job ID: [id number]
[2020-07-28] MEDS: Aspirin 81 mg Enteric Coated Tablet PO SCH (09:39)
[2020-07-28] MEDS: Metoprolol Tartrate 25 MG TAB PO SCH (09:39)
[2020-07-28] MEDS: Enoxaparin Sodium 40 MG/0.4 ML SYRINGE SC SCH (09:41)
[2020-07-28 11:20] VITALS: BP 134/74; TEMP 98.1
== END 2020-07-28 14:40 | disposition home health service (06) | DRG 856 ==
LOC: ERS 20:26 → SJJU 21:32 → CCU 07-19 13:20 → 2NO 07-22 18:48
PROVIDERS: ADMIT Thoracic Surgery (Cardiothoracic Vascular Surgery); ATTEND Thoracic Surgery (Cardiothoracic Vascular Surgery)
PROC: 0PB00ZZ Excision of Sternum, Open Approach (ICD-10-PCS; principal; 2020-07-19)
PROC: 0W9900Z Drainage of Right Pleural Cavity with Drainage Device, Open Approach (ICD-10-PCS; 2020-07-19)
PROC: 05HM33Z Insertion of Infusion Device into Right Internal Jugular Vein, Percutaneous Approach (ICD-10-PCS; 2020-07-19)
PROC: B543ZZA Ultrasonography of Right Jugular Veins, Guidance (ICD-10-PCS; 2020-07-19)
PROC: 02HV33Z Insertion of Infusion Device into Superior Vena Cava, Percutaneous Approach (ICD-10-PCS; 2020-07-25)
PROC: B5181ZA Fluoroscopy of Superior Vena Cava using Low Osmolar Contrast, Guidance (ICD-10-PCS; 2020-07-25)
PROC: B548ZZA Ultrasonography of Superior Vena Cava, Guidance (ICD-10-PCS; 2020-07-25)
DX: T81.49XA Infection following a procedure, other surgical site, initial encounter (principal); A41.9 Sepsis, unspecified organism; J80 Acute respiratory distress syndrome; U07.1 COVID-19; G93.49 Other encephalopathy; J81.1 Chronic pulmonary edema; K21.9 Gastro-esophageal reflux disease without esophagitis; E78.00 Pure hypercholesterolemia, unspecified; I10 Essential (primary) hypertension; E11.9 Type 2 diabetes mellitus without complications; B95.62 Methicillin resistant Staphylococcus aureus infection as the cause of diseases classified elsewhere; I25.2 Old myocardial infarction; Z95.1 Presence of aortocoronary bypass graft; Z90.89 Acquired absence of other organs; Z88.2 Allergy status to sulfonamides; Z88.8 Allergy status to other drugs, medicaments and biological substances; Y83.2 Surgical operation with anastomosis, bypass or graft as the cause of abnormal reaction of the patient, or of later complication, without mention of misadventure at the time of the procedure
CPT/HCPCS: 36415; 36416; 36569; 36600; 71045; 80048; 80053; 80202; 81001; 82805; 84145; 85007; 85025; 85027; 86850; 86900; 86901; 87070; 87077; 87086; 87186; 87205; 87324; 87449; 94003; 96365; 96375; C1751; J1630; J1650; J2060; J2250; J2405; J2543; J2704; J3010; J3370; J3480; J3490; J7050; S0028; U0002

== ENCOUNTER 2021-02-07 11:41 | Inpatient (IN) | payer MEDICARE, OTHER ==
[2021-02-07] MEDS ORDERED: Boostrix 0.5 ML (Tdap) VIAL ONE (11:55)
[2021-02-07 12:52] LABS: #Eosinphils 0.3 thou/uL (0.0-0.7); #Monocytes 0.6 thou/uL (0.11-0.59); #Neutrophils 5.6 thou/uL (1.40-6.50); %Basophils 0.5 % (0.0-1.0); %Eosinophils 3.6 % (0.0-10.0); %Lymphocytes 30.8 % (21.0-51.0); %Monocytes 6.3 % (0.0-10.0); %Neutrophils 58.9 % (42.0-75.0); Hemoglobin 14.4 g/dL (14.0-18.0); Mean Corpuscular HGB CONC 34.6 g/dL (32.0-36.0); Mean Corpuscular Hemoglobin 31.4 pg (27.0-31.0); Mean Corpuscular Volume 90.8 fL (78.0-98.0); Mean Platelet Volume 9.3 fL (7.4-10.4); Platelet Count 205 thou/uL (130-400); RBC Distribution Width 12.9 % (11.5-14.5); Red Blood Cell (RBC) Count 4.58 mill/uL (4.70-6.10); White Blood Cell (WBC) Count 9.6 thou/uL (4.8-10.8)
[2021-02-07 13:06] LABS: ALT (SGPT) 22 U/L (8-55); AST (SGOT) 22 U/L (5-34); Alkaline Phosphatase 118 U/L (40-110); Anion Gap 11 mmol/L (10-20); BUN (Urea Nitrogen) 14 mg/dL (8.4-25.7); Bilirubin, Total 0.3 mg/dL (0.2-1.2); Calc. Creatinine Clearance 0 mL/min (70-130); Carbon Dioxide 28 mmol/L (23-31); Chloride 105 mmol/L (98-107); Globulin 3.3 g/dL (2.4-3.5); Glucose 124 mg/dL (80-115); Potassium 3.7 mmol/L (3.5-5.1); Protein, Total 7.3 g/dL (5.8-8.1); Sodium 140 mmol/L (136-145)
[2021-02-07 14:03] LABS: SARS-CoV-2 NAA Rapid Test Not Detected (NotDetected)
[2021-02-07] MEDS ORDERED: Dextrose 5% in Water 1,000 ML IV PRN ×2 (14:32→21:51)
[2021-02-07] MEDS ORDERED: hydrALAZINE 20 MG/ML VIAL SLOW IVP PRN ×2 (14:32→21:52)
[2021-02-07] MEDS ORDERED: Ondansetron PF 4 MG/2 ML Vial IVP PRN ×2 (14:32→21:51)
[2021-02-07] MEDS ORDERED: Morphine 4 MG/ML VIAL SLOW IVP PRN (14:32)
[2021-02-07] MEDS ORDERED: Dextrose 50% Abboject 50 ML SYRINGE SLOW IVP PRN ×2 (14:32→21:50)
[2021-02-07] MEDS ORDERED: HumaLOG 300 UNITS/3 ML VIAL SC PRN ×4 (14:32→21:52)
[2021-02-07] MEDS ORDERED: Cyclobenzaprine 10 MG TAB PO PRN (14:39)
[2021-02-07] MEDS ORDERED: Acetaminophen/Codeine 30-300mg Tablet PO PRN ×4 (14:40→21:53)
[2021-02-07] MEDS ORDERED: Sodium Chloride 0.9% 1,000 ML IV SCH (14:45)
[2021-02-07] MEDS ORDERED: Vancomycin 1 GM/200 ML BAG ONE (16:24)
[2021-02-07] MEDS ORDERED: Fentanyl 100 MCG/2 ML VIAL ONE ×4 (16:51→20:08)
[2021-02-07] MEDS ORDERED: Lidocaine 2% Jelly 5 ML TUBE ONE (16:52)
[2021-02-07] MEDS ORDERED: ePHEDrine 50 MG/ML VIAL ONE (17:20)
[2021-02-07] MEDS ORDERED: PHENYLEPHRINE-NS 100 MCG/ML 10 ML SYRINGE ONE (17:20)
[2021-02-07] MEDS ORDERED: Dexamethasone 20 MG/5 ML VIAL ONE (17:20)
[2021-02-07] MEDS ORDERED: Glycopyrrolate 0.2 MG/ML 5 ML SYRINGE ONE (17:20)
[2021-02-07] MEDS ORDERED: Lidocaine 1% PF 5 ML VIAL ONE (17:20)
[2021-02-07] MEDS ORDERED: Ondansetron PF 4 MG/2 ML Vial ONE (17:20)
[2021-02-07] MEDS ORDERED: PROPOFOL 200 MG/20 ML VIAL ONE (17:20)
[2021-02-07] MEDS ORDERED: Rocuronium Bromide 10 MG/ML (10ML VIAL) ONE (17:20)
[2021-02-07] MEDS ORDERED: Ondansetron HCl/PF 4 MG/2 ML Vial IVP PRN (17:51)
[2021-02-07] MEDS ORDERED: HYDROmorphone 2 MG/ML VIAL SLOW IVP PRN (17:51)
[2021-02-07] MEDS ORDERED: Promethazine HCl 25 MG/ML VIAL IM PRN (17:51)
[2021-02-07] MEDS ORDERED: Promethazine HCl 25 MG/ML VIAL IVPB PRN (17:51)
[2021-02-07] MEDS ORDERED: Neomycin-Polymyxin 1 ML AMP ONE (17:54)
[2021-02-07] MEDS ORDERED: HYDROmorphone 0.5 MG/0.5 ML SYRINGE ONE (19:47)
[2021-02-07] MEDS ORDERED: CEFAZOLIN 2 GM in Premix Bag 1 BAG IVPB SCH (20:00)
[2021-02-07 20:42] VITALS: BMI 35.9
[2021-02-07] MEDS ORDERED: Senokot S 8.6-50 MG TAB PO SCH (21:00)
[2021-02-07] MEDS ORDERED: Famotidine 20 MG TAB PO SCH (21:00)
[2021-02-07] MEDS ORDERED: Vancomycin 1 GM in Premix Bag 1 BAG IVPB SCH (21:00)
[2021-02-07] MEDS: Senokot S 8.6-50 MG TAB PO SCH (22:02)
[2021-02-07] MEDS: Famotidine 20 MG TAB PO SCH (22:02)
[2021-02-07] MEDS: Gabapentin 100 MG CAP PO SCH (22:03)
[2021-02-07] MEDS: Morphine 4 MG/ML VIAL SLOW IVP PRN (22:05)
[2021-02-07] MEDS: Acetaminophen 325 MG TAB PO SCH (23:50)
[2021-02-08] MEDS: CEFAZOLIN 2 GM in Premix Bag 1 BAG IVPB SCH ×3 (01:46→18:56)
[2021-02-08] MEDS: Morphine 4 MG/ML VIAL SLOW IVP PRN ×2 (01:47→10:27)
[2021-02-08] MEDS: VANCOMYCIN 1.25 GM/250 ML BAG 1.25 GM in Premix Bag 1 BAG IVPB SCH ×2 (03:53→17:15)
[2021-02-08] MEDS: Acetaminophen 325 MG TAB PO SCH ×4 (05:53→18:51)
[2021-02-08] MEDS: Gabapentin 100 MG CAP PO SCH ×4 (08:15→20:19)
[2021-02-08 08:25] LABS: #Lymphocytes 1.2 thou/uL (1.20-3.40); #Monocytes 0.4 thou/uL (0.11-0.59); #Neutrophils 12.9 thou/uL (1.40-6.50); %Basophils 0.2 % (0.0-1.0); %Eosinophils 0.1 % (0.0-10.0); %Lymphocytes 8.3 % (21.0-51.0); %Neutrophils 88.5 % (42.0-75.0); Hemoglobin 11.7 g/dL (14.0-18.0); Mean Corpuscular HGB CONC 33.8 g/dL (32.0-36.0); Mean Corpuscular Hemoglobin 30.9 pg (27.0-31.0); Mean Corpuscular Volume 91.4 fL (78.0-98.0); Mean Platelet Volume 8.6 fL (7.4-10.4); Platelet Count 218 thou/uL (130-400); RBC Distribution Width 12.8 % (11.5-14.5); Red Blood Cell (RBC) Count 3.77 mill/uL (4.70-6.10); White Blood Cell (WBC) Count 14.6 thou/uL (4.8-10.8)
[2021-02-08 08:47] LABS: Anion Gap 13 mmol/L (10-20); BUN (Urea Nitrogen) 16 mg/dL (8.4-25.7); Calc. Creatinine Clearance 89 mL/min (70-130); Calcium 9.1 mg/dL (7.8-10.44); Carbon Dioxide 21 mmol/L (23-31); Chloride 104 mmol/L (98-107); Glucose 141 mg/dL (80-115); Magnesium 1.6 mg/dL (1.6-2.6); Phosphorus 2.8 mg/dL (2.3-4.7); Potassium 4.2 mmol/L (3.5-5.1); Sodium 134 mmol/L (136-145)
[2021-02-08] MEDS ORDERED: Enoxaparin Sodium 30 MG/0.3 ML SYRINGE SC SCH (09:00)
[2021-02-08] MEDS ORDERED: Polyethylene Glycol 3350 17 GM Packet PO SCH (09:00)
[2021-02-08] MEDS ORDERED: Magnesium 2 GM/50 ML 2 GM in Premix Bag 1 BAG IVPB SCH (09:15)
[2021-02-08] MEDS ORDERED: Sodium Phosphate 15 MMOL in Sodium Chloride 0.9% 250 ML 250 ML IVPB SCH (09:15)
[2021-02-08] MEDS ORDERED: Temazepam 15 MG CAP PO PRN (09:18)
[2021-02-08] MEDS ORDERED: Methocarbamol 500 MG TAB PO PRN (09:30)
[2021-02-08] MEDS: Polyethylene Glycol 3350 17 GM Packet PO SCH (09:58)
[2021-02-08] MEDS: Senokot S 8.6-50 MG TAB PO SCH ×2 (10:07→20:20)
[2021-02-08] MEDS: Famotidine 20 MG TAB PO SCH ×2 (10:08→20:19)
[2021-02-08] MEDS: Enoxaparin Sodium 30 MG/0.3 ML SYRINGE SC SCH (13:19)
[2021-02-08] MEDS: Acetaminophen/Codeine 30-300mg Tablet PO SCH (17:28)
[2021-02-08] MEDS ORDERED: Rosuvastatin 20 MG TAB PO SCH (21:00)
[2021-02-09] MEDS: Acetaminophen/Codeine 30-300mg Tablet PO SCH ×4 (00:27→18:10)
[2021-02-09] MEDS: Enoxaparin Sodium 30 MG/0.3 ML SYRINGE SC SCH ×2 (00:27→12:01)
[2021-02-09] MEDS: Acetaminophen 325 MG TAB PO SCH ×4 (00:29→18:09)
[2021-02-09] MEDS: VANCOMYCIN 1.25 GM/250 ML BAG 1.25 GM in Premix Bag 1 BAG IVPB SCH ×2 (03:24→16:26)
[2021-02-09 07:39] LABS: #Basophils 0.1 thou/uL (0.0-0.2); #Eosinphils 0.2 thou/uL (0.0-0.7); #Lymphocytes 2.1 thou/uL (1.20-3.40); #Monocytes 0.9 thou/uL (0.11-0.59); #Neutrophils 8.1 thou/uL (1.40-6.50); %Basophils 0.5 % (0.0-1.0); %Eosinophils 1.5 % (0.0-10.0); %Lymphocytes 18.3 % (21.0-51.0); %Monocytes 7.7 % (0.0-10.0); Hemoglobin 11.9 g/dL (14.0-18.0); Mean Corpuscular HGB CONC 33.6 g/dL (32.0-36.0); Mean Corpuscular Hemoglobin 31.3 pg (27.0-31.0); Mean Corpuscular Volume 93.1 fL (78.0-98.0); Mean Platelet Volume 9.1 fL (7.4-10.4); Platelet Count 193 thou/uL (130-400); RBC Distribution Width 13.2 % (11.5-14.5); Red Blood Cell (RBC) Count 3.79 mill/uL (4.70-6.10); White Blood Cell (WBC) Count 11.2 thou/uL (4.8-10.8)
[2021-02-09 08:01] LABS: Anion Gap 10 mmol/L (10-20); BUN (Urea Nitrogen) 16 mg/dL (8.4-25.7); Calc. Creatinine Clearance 90 mL/min (70-130); Calcium 9.5 mg/dL (7.8-10.44); Carbon Dioxide 26 mmol/L (23-31); Chloride 109 mmol/L (98-107); Glucose 110 mg/dL (80-115); Magnesium 2.2 mg/dL (1.6-2.6); Phosphorus 3.6 mg/dL (2.3-4.7); Potassium 4.3 mmol/L (3.5-5.1); Sodium 141 mmol/L (136-145)
[2021-02-09] MEDS ORDERED: Furosemide 20 MG TAB PO SCH (09:00)
[2021-02-09] MEDS: Gabapentin 100 MG CAP PO SCH ×2 (09:03→17:28)
[2021-02-09] MEDS: Senokot S 8.6-50 MG TAB PO SCH (09:03)
[2021-02-09] MEDS: Polyethylene Glycol 3350 17 GM Packet PO SCH (09:04)
[2021-02-09] MEDS: Famotidine 20 MG TAB PO SCH (09:04)
[2021-02-09 16:35] VITALS: BP 108/73; TEMP 98
== END 2021-02-09 18:48 | disposition home or self-care (01) | DRG 493 ==
LOC: ERS 11:41 → SDC 19:03 → SURG A 19:15
PROVIDERS: ADMIT Surgery; ATTEND Surgery
PROC: 0QSH36Z Reposition Left Tibia with Intramedullary Internal Fixation Device, Percutaneous Approach (ICD-10-PCS; principal; 2021-02-07)
DX: S82.202B Unspecified fracture of shaft of left tibia, initial encounter for open fracture type I or II (principal); I13.0 Hypertensive heart and chronic kidney disease with heart failure and stage 1 through stage 4 chronic kidney disease, or unspecified chronic kidney disease; Z20.822 Contact with and (suspected) exposure to COVID-19; Z23 Encounter for immunization; I48.91 Unspecified atrial fibrillation; E66.9 Obesity, unspecified; K21.9 Gastro-esophageal reflux disease without esophagitis; E78.00 Pure hypercholesterolemia, unspecified; I50.9 Heart failure, unspecified; E11.22 Type 2 diabetes mellitus with diabetic chronic kidney disease; N18.9 Chronic kidney disease, unspecified; W34.00XA Accidental discharge from unspecified firearms or gun, initial encounter; I25.2 Old myocardial infarction; Z95.5 Presence of coronary angioplasty implant and graft; Z86.16 Personal history of COVID-19; Z98.1 Arthrodesis status; Z95.1 Presence of aortocoronary bypass graft; Z86.73 Personal history of transient ischemic attack (TIA), and cerebral infarction without residual deficits; Z88.5 Allergy status to narcotic agent; Z88.2 Allergy status to sulfonamides; Z91.018 Allergy to other foods; Z68.35 Body mass index [BMI] 35.0-35.9, adult; Z79.82 Long term (current) use of aspirin; Z79.899 Other long term (current) drug therapy
CPT/HCPCS: 36415; 36416; 71045; 76000; 80048; 80053; 83735; 84100; 85025; 86850; 86900; 86901; 90471; 90715; 93005; 96365; C1713; G0390; J0690; J1100; J1170; J1650; J1815; J2270; J2405; J2704; J3010; J3370; J3475; J3490; J7050; U0002

== ENCOUNTER 2021-12-01 13:32 | Outpatient (CLI) | payer MEDICARE | END 2021-12-01 13:33 | disposition home or self-care (01) | LOC: SCSMRI 13:32 | PROVIDERS: ATTEND Family Medicine | DX: R55 Syncope and collapse (principal); R51.9 Headache, unspecified; M25.372 Other instability, left ankle | CPT/HCPCS: 70553 ==

== ENCOUNTER 2022-05-08 07:55 | Outpatient (CLI) | payer OTHER | END 2022-05-08 07:56 | disposition home or self-care (01) | LOC: TBSIIMAG 07:55 | PROVIDERS: ATTEND Neurological Surgery | DX: S32.028A Other fracture of second lumbar vertebra, initial encounter for closed fracture (principal); R93.7 Abnormal findings on diagnostic imaging of other parts of musculoskeletal system | CPT/HCPCS: 72100 ==

== ENCOUNTER 2022-05-29 08:04 | Outpatient (CLI) | payer OTHER | END 2022-05-29 08:05 | disposition home or self-care (01) | LOC: BICRAD 08:04 → RAD 08:05 | PROVIDERS: ATTEND Emergency Medicine | DX: M47.26 Other spondylosis with radiculopathy, lumbar region (principal); R29.890 Loss of height; M53.86 Other specified dorsopathies, lumbar region; S32.020D Wedge compression fracture of second lumbar vertebra, subsequent encounter for fracture with routine healing | CPT/HCPCS: 72100 ==

== ENCOUNTER 2022-09-05 17:08 | Inpatient (IN) | payer OTHER ==
[2022-09-05 18:06] LABS: #Basophils 0.1 thou/uL (0.0-0.2); #Eosinphils 0.5 thou/uL (0.0-0.7); #Lymphocytes 2.3 thou/uL (1.20-3.40); #Monocytes 0.7 thou/uL (0.11-0.59); %Basophils 0.5 % (0.0-1.0); %Eosinophils 4.3 % (0.0-10.0); %Lymphocytes 19.9 % (21.0-51.0); %Monocytes 5.7 % (0.0-10.0); %Neutrophils 69.6 % (42.0-75.0); Bilirubin Negative (Negative); Blood, Urine Negative (Negative); Clarity Clear (Clear); Glucose, Urine (Dipstick) Normal (Negative); Hemoglobin 15.4 g/dL (14.0-18.0); Ketone, Urine Negative (Negative); Leukocyte Negative Leu/uL (Negative); Mean Corpuscular HGB CONC 34.1 g/dL (32.0-36.0); Mean Corpuscular Hemoglobin 30.9 pg (27.0-31.0); Mean Corpuscular Volume 90.7 fl (78.0-98.0); Mean Platelet Volume 9.3 fL (7.4-10.4); Nitrite Negative (Negative); Platelet Count 229 10x3/uL (130-400); Protein, Urine (Dipstick) Negative (Neg-Trace); RBC Distribution Width 12.1 % (11.5-14.5); Red Blood Cell (RBC) Count 4.97 mill/uL (4.70-6.10); Specific Gravity, Urine 1.006 (1.002-1.036); Urobilinogen Normal mg/dL (Less than 2); White Blood Cell (WBC) Count 11.5 10x3/uL (4.8-10.8); pH, Urine 5.5 (5.0-9.0)
[2022-09-05 18:24] LABS: ALT (SGPT) 14 U/L (8-55); AST (SGOT) 15 U/L (5-34); Albumin 4.2 g/dL (3.4-4.8); Alkaline Phosphatase 100 U/L (40-110); Anion Gap 15 mmol/L (10-20); BUN (Urea Nitrogen) 14 mg/dL (8.4-25.7); Bilirubin, Total 0.5 mg/dL (0.2-1.2); Calc. Creatinine Clearance 0 mL/min (70-130); Calcium 9.9 mg/dL (7.8-10.44); Carbon Dioxide 23 mmol/L (23-31); Chloride 102 mmol/L (98-107); Estimated GFR 62; Globulin 3.2 g/dL (2.4-3.5); Glucose 183 mg/dL (80-115); Potassium 3.9 mmol/L (3.5-5.1); Protein, Total 7.4 g/dL (5.8-8.1); Sodium 136 mmol/L (136-145)
[2022-09-05] MEDS ORDERED: Aspirin Chewable 81 MG TAB ONE (19:46)
[2022-09-05] MEDS ORDERED: Acetaminophen 650 MG Suppository PR PRN (20:37)
[2022-09-05] MEDS ORDERED: Dextrose 50% Abboject 50 ML SYRINGE SLOW IVP PRN (20:37)
[2022-09-05] MEDS ORDERED: Acetaminophen 325 MG TAB PO PRN (20:37)
[2022-09-05] MEDS ORDERED: HumaLOG 300 UNITS/3 ML VIAL SC PRN (20:37)
[2022-09-05] MEDS ORDERED: Dextrose 5% in Water 1,000 ML IV PRN (20:37)
[2022-09-05] MEDS ORDERED: Melatonin 3 MG TAB PO PRN (21:24)
[2022-09-05 21:25] VITALS: BMI 36.5
[2022-09-05 22:06] LABS: Magnesium 1.7 mg/dL (1.6-2.6); Phosphorus 3.4 mg/dL (2.3-4.7)
[2022-09-05] MEDS: Fish Oil 1,000 MG CAP PO SCH (22:20)
[2022-09-05] MEDS: Rosuvastatin 20 MG TAB PO SCH (22:20)
[2022-09-05] MEDS ORDERED: hydrALAZINE 20 MG/ML VIAL SLOW IVP PRN (22:21)
[2022-09-05] MEDS: Temazepam 15 MG CAP PO SCH (22:22)
[2022-09-06] MEDS: Pilocarpine 5 MG TAB PO SCH ×5 (00:42→23:59)
[2022-09-06 05:16] LABS: Hemoglobin A1c 7.4 % (4.0-6.0)
[2022-09-06 05:32] LABS: Cholesterol 130 mg/dl (< 200 Desired); HDL Cholesterol 26 mg/dL (>60 Neg Risk); LDL Cholesterol, Calculated 62 mg/dL; Triglycerides 208 mg/dL (Less than 150)
[2022-09-06] MEDS: Fluticasone Propionate Nasal Spray 16 gm Bottle NASAL SCH (08:10)
[2022-09-06] MEDS: Cholecalciferol 1,000 UNITS (25 MCG) TAB PO SCH (08:11)
[2022-09-06] MEDS: DULoxetine 60 MG CAP PO SCH (08:11)
[2022-09-06] MEDS: Fish Oil 1,000 MG CAP PO SCH ×2 (08:11→21:00)
[2022-09-06] MEDS: Furosemide 20 MG TAB PO SCH (08:12)
[2022-09-06] MEDS: Aspirin 81 mg Enteric Coated Tablet PO SCH (08:12)
[2022-09-06] MEDS: metFORMIN 500 MG TAB PO SCH ×2 (08:12→16:22)
[2022-09-06] MEDS ORDERED: hydrALAZINE 20 MG/ML VIAL SLOW IVP PRN (11:22)
[2022-09-06] MEDS ORDERED: Clopidogrel Bisulfate 300 MG TAB PO SCH (11:30)
[2022-09-06] MEDS ORDERED: Losartan 25 MG TAB PO SCH (11:30)
[2022-09-06] MEDS ORDERED: Clopidogrel Bisulfate 75 MG TAB PO SCH (12:30)
[2022-09-06] MEDS: HumaLOG 300 UNITS/3 ML VIAL SC PRN (16:28)
[2022-09-06] MEDS: Temazepam 15 MG CAP PO SCH (21:00)
[2022-09-06] MEDS: Rosuvastatin 20 MG TAB PO SCH (21:01)
[2022-09-07] MEDS: HumaLOG 300 UNITS/3 ML VIAL SC PRN ×2 (06:38→18:10)
[2022-09-07] MEDS: Pilocarpine 5 MG TAB PO SCH (06:38)
[2022-09-07] MEDS: Clopidogrel Bisulfate 75 MG TAB PO SCH (08:16)
[2022-09-07] MEDS: Cholecalciferol 1,000 UNITS (25 MCG) TAB PO SCH (08:16)
[2022-09-07] MEDS: DULoxetine 60 MG CAP PO SCH (08:16)
[2022-09-07] MEDS: Furosemide 20 MG TAB PO SCH (08:17)
[2022-09-07] MEDS: Aspirin 81 mg Enteric Coated Tablet PO SCH (08:17)
[2022-09-07] MEDS: metFORMIN 500 MG TAB PO SCH ×2 (08:17→16:04)
[2022-09-07] MEDS: Fish Oil 1,000 MG CAP PO SCH ×2 (08:18→20:18)
[2022-09-07] MEDS: Fluticasone Propionate Nasal Spray 16 gm Bottle NASAL SCH (08:21)
[2022-09-07] MEDS ORDERED: Losartan 25 MG TAB PO SCH ×2 (09:00→13:30)
[2022-09-07] MEDS ORDERED: Pilocarpine 5 MG TAB PO PRN (09:07)
[2022-09-07] MEDS ORDERED: Lidocaine 1% w/Epinephrine 1:100K 20 ML VIAL ONE (12:44)
[2022-09-07] MEDS: Temazepam 15 MG CAP PO SCH (20:18)
[2022-09-07] MEDS: Rosuvastatin 20 MG TAB PO SCH (20:18)
[2022-09-08] MEDS: Losartan 25 MG TAB PO SCH (10:07)
[2022-09-08] MEDS: Cholecalciferol 1,000 UNITS (25 MCG) TAB PO SCH (10:08)
[2022-09-08] MEDS: Fish Oil 1,000 MG CAP PO SCH ×2 (10:08→20:10)
[2022-09-08] MEDS: Clopidogrel Bisulfate 75 MG TAB PO SCH (10:09)
[2022-09-08] MEDS: Aspirin 81 mg Enteric Coated Tablet PO SCH (10:09)
[2022-09-08] MEDS: Furosemide 20 MG TAB PO SCH (10:10)
[2022-09-08] MEDS: metFORMIN 500 MG TAB PO SCH ×2 (10:10→17:42)
[2022-09-08] MEDS: HumaLOG 300 UNITS/3 ML VIAL SC PRN ×2 (12:23→17:50)
[2022-09-08] MEDS: Fluticasone Propionate Nasal Spray 16 gm Bottle NASAL SCH (16:49)
[2022-09-08] MEDS: Rosuvastatin 20 MG TAB PO SCH (20:10)
[2022-09-08] MEDS: NIFEdipine XL 30 MG TAB PO SCH (20:10)
[2022-09-08] MEDS: Temazepam 15 MG CAP PO SCH (20:10)
[2022-09-09] MEDS: metFORMIN 500 MG TAB PO SCH ×2 (08:25→17:32)
[2022-09-09] MEDS: Cholecalciferol 1,000 UNITS (25 MCG) TAB PO SCH (08:25)
[2022-09-09] MEDS: Fluticasone Propionate Nasal Spray 16 gm Bottle NASAL SCH (08:25)
[2022-09-09] MEDS: Furosemide 20 MG TAB PO SCH (08:26)
[2022-09-09] MEDS: Fish Oil 1,000 MG CAP PO SCH ×2 (08:26→21:43)
[2022-09-09] MEDS: Clopidogrel Bisulfate 75 MG TAB PO SCH (08:26)
[2022-09-09] MEDS: Losartan 25 MG TAB PO SCH (08:27)
[2022-09-09] MEDS: NIFEdipine XL 30 MG TAB PO SCH ×2 (08:27→21:42)
[2022-09-09] MEDS: Aspirin 81 mg Enteric Coated Tablet PO SCH (08:27)
[2022-09-09] MEDS: HumaLOG 300 UNITS/3 ML VIAL SC PRN ×2 (11:28→17:32)
[2022-09-09] MEDS ORDERED: Polyethylene Glycol 3350 17 GM Packet PO SCH (15:00)
[2022-09-09] MEDS: Rosuvastatin 20 MG TAB PO SCH (21:43)
[2022-09-09] MEDS: Temazepam 15 MG CAP PO SCH (21:43)
[2022-09-10] MEDS: NIFEdipine XL 30 MG TAB PO SCH (08:06)
[2022-09-10] MEDS: metFORMIN 500 MG TAB PO SCH ×2 (08:06→17:05)
[2022-09-10] MEDS: Losartan 25 MG TAB PO SCH (08:06)
[2022-09-10] MEDS: Fish Oil 1,000 MG CAP PO SCH (08:07)
[2022-09-10] MEDS: Cholecalciferol 1,000 UNITS (25 MCG) TAB PO SCH (08:07)
[2022-09-10] MEDS: Aspirin 81 mg Enteric Coated Tablet PO SCH (08:08)
[2022-09-10] MEDS: Furosemide 20 MG TAB PO SCH (08:08)
[2022-09-10] MEDS: Clopidogrel Bisulfate 75 MG TAB PO SCH (08:08)
[2022-09-10] MEDS: Fluticasone Propionate Nasal Spray 16 gm Bottle NASAL SCH (08:19)
[2022-09-10] MEDS ORDERED: Polyethylene Glycol 3350 17 GM Packet PO SCH (09:00)
[2022-09-10 11:53] VITALS: TEMP 97.4
[2022-09-10] MEDS: HumaLOG 300 UNITS/3 ML VIAL SC PRN ×2 (12:07→17:37)
[2022-09-10 16:14] VITALS: BP 113/68
== END 2022-09-10 18:15 | DRG 41 ==
LOC: ERS 17:08 → NEURO 19:35 → OBSVTOIN 22:29
PROVIDERS: ADMIT Family Medicine; ATTEND Family Medicine
PROC: 0JH602Z Insertion of Monitoring Device into Chest Subcutaneous Tissue and Fascia, Open Approach (ICD-10-PCS; principal; 2022-09-07)
DX: I63.9 Cerebral infarction, unspecified (principal); G81.94 Hemiplegia, unspecified affecting left nondominant side; I13.0 Hypertensive heart and chronic kidney disease with heart failure and stage 1 through stage 4 chronic kidney disease, or unspecified chronic kidney disease; I50.30 Unspecified diastolic (congestive) heart failure; R00.1 Bradycardia, unspecified; I48.91 Unspecified atrial fibrillation; I25.10 Atherosclerotic heart disease of native coronary artery without angina pectoris; E66.9 Obesity, unspecified; N18.9 Chronic kidney disease, unspecified; E11.22 Type 2 diabetes mellitus with diabetic chronic kidney disease; R53.81 Other malaise; R29.706 NIHSS score 6; K21.9 Gastro-esophageal reflux disease without esophagitis; E78.00 Pure hypercholesterolemia, unspecified; R47.1 Dysarthria and anarthria; R29.810 Facial weakness; Z91.018 Allergy to other foods; Z88.2 Allergy status to sulfonamides; Z88.8 Allergy status to other drugs, medicaments and biological substances; Z79.899 Other long term (current) drug therapy; Z79.82 Long term (current) use of aspirin; Z79.84 Long term (current) use of oral hypoglycemic drugs; I25.2 Old myocardial infarction; Z95.1 Presence of aortocoronary bypass graft; Z95.5 Presence of coronary angioplasty implant and graft; Z82.49 Family history of ischemic heart disease and other diseases of the circulatory system; Z68.36 Body mass index [BMI] 36.0-36.9, adult; Z86.16 Personal history of COVID-19; Z90.89 Acquired absence of other organs
CPT/HCPCS: 33285; 36415; 36416; 70450; 70544; 70551; 80053; 80061; 81003; 83036; 83735; 84100; 84484; 85025; 93005; 93306; 93880; C1764; G0378; J0360; J1650; J1815; J3475; J3490